=== PATIENT | male | born 1965 | race Caucasian/White ===

== ENCOUNTER 2019-08-12 10:05 | Inpatient (IN) | payer BC ==
--- NOTE | 2019-08-12 10:19 | ED ---
General Adult HPI <Tee Cerrato - Last Filed: 08/12/19 12:25> - General Source: patient, RN notes reviewed Mode of arrival: ambulatory Limitations: no limitations <Costa Bautista - Last Filed: 08/12/19 12:34> - General Chief complaint: Abdominal Pain Stated complaint: ABDOMINAL PAIN Time Seen by Provider: 08/12/19 10:16 - History of Present Illness Initial comments: 54-year-old male with a past medical history of chronic lower back pain and inguinal hernia repair 30 years ago presents to the emergency department for abdominal pain. Patient states it is mostly in his upper abdomen. States it flowers s been constant for about 2 days. Describes the pain as a sharp swirling pain. States he has been nauseous and vomiting as well. Denies any hematemesis. States he has been having normal bowel movements up until today when he has not had a bowel movement. Patient denies any fevers or chills. Denies any other abdominal surgeries or pathologies. Patient denies any alleviating or aggravating factors.Patient has no other complaints at this time including shortness of breath, chest pain, headache, or visual changes. (Costa Bautista) - Related Data Home Medications Medication Instructions Recorded Confirmed Ibuprofen [Motrin] 800 mg PO Q8HR PRN 12/18/15 08/12/19 Omeprazole 20 mg PO TID 08/12/19 08/12/19 Allergies Allergy/AdvReac Type Severity Reaction Status Date / Time No Known Allergies Allergy Verified 08/12/19 10:16 Review of Systems ROS Other: All systems not noted in ROS Statement are negative. <Tee Cerrato - Last Filed: 08/12/19 12:25> ROS Other: All systems not noted in ROS Statement are negative. <Costa Bautista - Last Filed: 08/12/19 12:34> ROS Statement: Those systems with pertinent positive or pertinent negative responses have been documented in the HPI. Past Medical History Additional Past Medical History / Comment(s): CHRONIC LOWER BACK PAIN. History of Any Multi-Drug Resistant Organisms: None Reported Past Surgical History: Hernia Repair Past Anesthesia/Blood Transfusion Reactions: No Reported Reaction Past Psychological History: No Psychological Hx Reported Smoking Status: Current every day smoker Past Alcohol Use History: Occasional Past Drug Use History: None Reported - Past Family History Mother Family Medical History: No Reported History <Costa Bautista Valerie - Last Filed: 08/12/19 12:34> General Exam Limitations: no limitations General appearance: alert, in no apparent distress Head exam: Present: atraumatic, normocephalic, normal inspection Eye exam: Present: normal appearance, PERRL, EOMI. Absent: scleral icterus, conjunctival injection, periorbital swelling ENT exam: Present: normal exam, mucous membranes moist Neck exam: Present: normal inspection, full ROM. Absent: tenderness, meningismus, lymphadenopathy Respiratory exam: Present: normal lung sounds bilaterally. Absent: respiratory distress, wheezes, rales, rhonchi, stridor Cardiovascular Exam: Present: regular rate, normal rhythm, normal heart sounds. Absent: systolic murmur, diastolic murmur, rubs, gallop, clicks GI/Abdominal exam: Present: soft, distended, tenderness (tenderness in right and left upper quadrants with guarding as well as epigastric area), diminished bowel sounds. Absent: guarding, rebound, rigid Neurological exam: Present: alert <Lily,Costa Padilla - Last Filed: 08/12/19 12:34> Course <Tee Cerrato - Last Filed: 08/12/19 12:25> Vital Signs 08/12/19 10:08 Temperature 97.4 F L Pulse Rate 67 Respiratory 18 Rate Blood Pressure 173/101 O2 Sat by Pulse 97 Oximetry - Reevaluation(s) Reevaluation #1: 08/12/19 12:25 Case discussed with practitioner Costa. Case also discussed with Dr. Torres, who will admit covering for Dr. Thornton. Consult will be placed with GI and oncology. (Tee Cerrato) EKG Findings - EKG Comments: EKG Findings:: Sinus rhythm, ventricular rate 70, OR interval 176, QTC 414 <Mitch Bautistanely Padilla - Last Filed: 08/12/19 12:34> Medical Decision Making - Lab Data Result diagrams: 08/12/19 11:00 08/12/19 11:00 <Tee Cerrato - Last Filed: 08/12/19 12:25> - Lab Data Result diagrams: 08/12/19 11:00 08/12/19 11:00 <Costa Bautista - Last Filed: 08/12/19 12:34> - Medical Decision Making 54-year-old male to past medical history of chronic lower back pain and inguinal hernia repair 30 years ago presents for abdominal pain. It is mostly in his upper abdomen but does radiate to the lower abdomen. Describes the pain as a sharp swirling pain across his upper abdomen. Does admit to nausea vomiting. Denies diarrhea. States he has been passing stool up until this morning. Vitals are stable. Patient is hypertensive likely secondary to pain. On exam patient does have generalized upper abdominal tenderness. CBC CMP unremarkable. Lipase is 8105 with amylase of 1121. Initially discussed the patient will use and he states he is not a daily drinker and last drank last Tuesday. However upon further questioning patient does admit that there are weeks for he drinks up to 3-[address] abdomen and pelvis was obtained which shows hepatomegaly of the liver and uncomplicated diverticulosis. Uncomplicated diverticulosis. There is thickening of the proximal transverse colon as well. CT shows multiple sclerotic foci within the skeletal. Recommend nuclear medicine scan. Dr. Cerrato spoke with Dr Merida who recommends GI and oncology consultation. Patient will also receive inpatient ultrasound of the gallbladder. (Costa Bautista) - Lab Data Lab Results 08/12/19 08/12/19 08/12/19 Range/Units 11:00 11:00 11:00 WBC 10.6 (3.8-10.6) k/uL RBC 5.76 (4.30-5.90) m/uL Hgb 18.8 H (13.0-17.5) gm/dL Hct 52.9 (39.0-53.0) % MCV 91.9 (80.0-100.0) fL MCH 32.7 (25.0-35.0) pg MCHC 35.5 (31.0-37.0) g/dL RDW 13.0 (11.5-15.5) % Plt Count 204 (150-450) k/uL Neutrophils % 90 % Lymphocytes % 8 % Monocytes % 2 % Eosinophils % 0 % Basophils % 0 % Neutrophils # 9.5 H (1.3-7.7) k/uL Lymphocytes # 0.8 L (1.0-4.8) k/uL Monocytes # 0.2 (0-1.0) k/uL Eosinophils # 0.0 (0-0.7) k/uL Basophils # 0.0 (0-0.2) k/uL Sodium 139 (137-145) mmol/L Potassium 4.6 (3.5-5.1) mmol/L Chloride 103 (98-107) mmol/L Carbon Dioxide 29 (22-30) mmol/L Anion Gap 7 mmol/L BUN 14 (9-20) mg/dL Creatinine 0.88 (0.66-1.25) mg/dL Est GFR (CKD-EPI)AfAm >90 (>60 ml/min/1.73 sqM) Est GFR (CKD-EPI)NonAf >90 (>60 ml/min/1.73 sqM) Glucose 197 H (74-99) mg/dL Plasma Lactic Acid Juanpablo 1.4 (0.7-2.0) mmol/L Calcium 9.9 (8.4-10.2) mg/dL Total Bilirubin 0.7 (0.2-1.3) mg/dL AST 57 (17-59) U/L ALT 112 H (21-72) U/L Alkaline Phosphatase 82 (38-126) U/L Troponin I (0.000-0.034) ng/mL Total Protein 7.6 (6.3-8.2) g/dL Albumin 4.8 (3.5-5.0) g/dL Amylase 1121 H* (30-110) U/L Lipase 8105 H (23-300) U/L 08/12/19 Range/Units 11:00 WBC (3.8-10.6) k/uL RBC (4.30-5.90) m/uL Hgb (13.0-17.5) gm/dL Hct (39.0-53.0) % MCV (80.0-100.0) fL MCH (25.0-35.0) pg MCHC (31.0-37.0) g/dL RDW (11.5-15.5) % Plt Count (150-450) k/uL Neutrophils % % Lymphocytes % % Monocytes % % Eosinophils % % Basophils % % Neutrophils # (1.3-7.7) k/uL Lymphocytes # (1.0-4.8) k/uL Monocytes # (0-1.0) k/uL Eosinophils # (0-0.7) k/uL Basophils # (0-0.2) k/uL Sodium (137-145) mmol/L Potassium (3.5-5.1) mmol/L Chloride (98-107) mmol/L Carbon Dioxide (22-30) mmol/L Anion Gap mmol/L BUN (9-20) mg/dL Creatinine (0.66-1.25) mg/dL Est GFR (CKD-EPI)AfAm (>60 ml/min/1.73 sqM) Est GFR (CKD-EPI)NonAf (>60 ml/min/1.73 sqM) Glucose (74-99) mg/dL Plasma Lactic Acid Juanpablo (0.7-2.0) mmol/L Calcium (8.4-10.2) mg/dL Total Bilirubin (0.2-1.3) mg/dL AST (17-59) U/L ALT (21-72) U/L Alkaline Phosphatase (38-126) U/L Troponin I <0.012 (0.000-0.034) ng/mL Total Protein (6.3-8.2) g/dL Albumin (3.5-5.0) g/dL Amylase (30-110) U/L Lipase (23-300) U/L Disposition <Tee Cerrato - Last Filed: 08/12/19 12:25> Is patient prescribed a controlled substance at d/c from ED?: No Time of Disposition: 12:34 <Costa Bautista - Last Filed: 08/12/19 12:34> Clinical Impression: Pancreatitis, Fatty liver, Bone lesion Disposition: ADMITTED IP TO THIS HOSP Referrals: Alyce Davey MD [Primary Care Provider] - 1-2 days
[2019-08-12] MEDS ORDERED: MORPHINE SULFATE 2 MG/ML SYRINGE IVP STA (10:25)
[2019-08-12] MEDS ORDERED: SODIUM CHLORIDE 0.9% 500 ML 500 ML IV STA (10:25)
[2019-08-12] MEDS ORDERED: ONDANSETRON 4 MG/2 ML VIAL IVP STA (10:25)
[2019-08-12] MEDS ORDERED: FAMOTIDINE 20 MG/2 ML VIAL IV STA (10:26)
[2019-08-12 11:18] LABS: ALT 112 U/L (21-72); AST 57 U/L (17-59); African American GFR (CKD) >90 (>60 ml/min/1.73 sqM); Albumin 4.8 g/dL (3.5-5.0); Alkaline Phosphatase 82 U/L (38-126); Anion Gap 7 mmol/L; Blood Urea Nitrogen 14 mg/dL (9-20); Calcium 9.9 mg/dL (8.4-10.2); Carbon Dioxide 29 mmol/L (22-30); Chloride 103 mmol/L (98-107); Glucose 197 mg/dL (74-99); Potassium 4.6 mmol/L (3.5-5.1); Sodium 139 mmol/L (137-145); Total Bilirubin 0.7 mg/dL (0.2-1.3); Total Protein 7.6 g/dL (6.3-8.2)
[2019-08-12 11:43] LABS: Amylase 1121 U/L (30-110)
--- NOTE | 2019-08-12 12:03 | CT ---
EXAMINATION TYPE: CT abdomen pelvis w con DATE OF EXAM: 08/12/2019 REFERENCE: NONE HISTORY: abdominal pain HISTORY: Upper Abdominal pain with nausea CT DLP: 2259.9 mGy Automated exposure control for dose reduction was used. TECHNIQUE: Helical acquisition through the abdomen and pelvis was obtained following the oral ingesti on of without Oral Contrast and following intravenous administration of 100 mL of Isovue 300. The rossi a was reformatted in axial, coronal and sagittal projections. FINDINGS: Visualized portions of the lungs are clear.There is no pleural or pericardial fluid. Heart size upper limits of normal. Within the abdomen, the liver is prominent measuring 19 cm. It is low in attenuation and may be fatty infiltrated. The spleen and gallbladder are unremarkable. Both adrenal glands are normal. Both kidneys demonstrate function and appear morphologically normal. The pancreas is unremarkable. There is no significant retroperitoneal, iliac or inguinal adenopathy. The bladder is not distended. There are scattered diverticula throughout the left side of the colon. There is some thickening of th e distal transverse colon. The appendix is normal Small bowel caliber is normal. There is no free fluid and no free air. There are small sclerotic foci in both femoral heads as well as in the left acetabulum. There is hype rtrophic spondylosis in the lower dorsal spine. IMPRESSION: 1. HEPATOMEGALY AND FATTY INFILTRATION OF THE LIVER. 2. UNCOMPLICATED DIVERTICULOSIS OF THE LEFT SIDE OF THE COLON. 3. THICKENING OF THE WALL OF THE PROXIMAL TRANSVERSE COLON. PLEASE CORRELATE FOR COLITIS. 4. MULTIPLE SCLEROTIC FOCI DESCRIBED WITHIN THE SKELETAL. A NUCLEAR MEDICINE WHOLE BODY BONE SCAN WOULD BE SUGGESTED TO EXCLUDE METASTASES.
[2019-08-12 12:04] LABS: Basophils % (A) 0 %; Eosinophils % (A) 0 %; HCT 52.9 % (39.0-53.0); HGB 18.8 gm/dL (13.0-17.5); Lymphocytes # (A) 0.8 k/uL (1.0-4.8); Lymphocytes % (A) 8 %; MCH 32.7 pg (25.0-35.0); MCHC 35.5 g/dL (31.0-37.0); MCV 91.9 fL (80.0-100.0); Mean Platelet Volume 6.6; Monocytes # (A) 0.2 k/uL (0-1.0); Monocytes % (A) 2 %; Neutrophils # (A) 9.5 k/uL (1.3-7.7); Neutrophils % (A) 90 %; Platelet Count 204 k/uL (150-450); RBC 5.76 m/uL (4.30-5.90); WBC 10.6 k/uL (3.8-10.6)
[2019-08-12] MEDS ORDERED: NALOXONE 0.4 MG/ML 1 ML VIAL IV PRN (12:34)
[2019-08-12] MEDS ORDERED: KETOROLAC 30 MG/ML 1 ML VIAL IVP PRN (12:34)
[2019-08-12] MEDS ORDERED: hydrALAZINE HCL 20 MG/ML 1 ML VIAL IVP PRN (13:09)
--- NOTE | 2019-08-12 13:12 | P.HPIM ---
History of Present Illness This is a pleasant 54 years old male with no significant past medical history except for chronic low back pain. He presents because of abdominal pain. Patient says that abdominal pain started 2 days ago, and upper abdomen that rad iates across both sides but not to the back, it was mild getting more severe today more than 8/10 in severity felt like dull agonizing pain, associated about 4 episodes of vomiting, no hematemesis. He had no bowel movement today however yesterday he had regular bowel movement. No chest pain or dyspnea. No fever.No urinary symptoms Patient smokes about 1 pack per day, drinks alcohol occasionally and no illicit drugs Vitas looks stable, blood pressure 173/101. Labs including CBC, BMP are unre markable. ALT slightly elevated at 112, AST and bilirubin are within normal limits. Troponin is negative. Lipase is elevated at more than 8000. EKG showing sinus rhythm at [address]-T changes. CT of the abdomen and pelvis with IV contrast: Hepatomegaly, diverticulosis, thickened proximal transverse colon suspicious for colitis, multiple sclerotic foci within the skeletal including femoral heads and left acetabulum Review of Systems CONSTITUTIONAL: No fever, no malaise, no fatigue. HEENT: No recent visual problems or hearing problems. Denied any sore throat. CARDIOVASCULAR: No orthopnea, PND, no palpitations, no syncope. PULMONARY: No shortness of breath, no cough, no hemoptysis. GASTROINTESTINAL: No diarrhea, no nausea, no vomiting, no abdominal pain. Normoactive bowel sounds. NEUROLOGICAL: No headaches, no weakness, no numbness. HEMATOLOGICAL: Denies any bleeding or petechiae. GENITOURINARY: Denies any burning micturition, frequency, or urgency. MUSCULOSKELETAL/RHEUMATOLOGICAL: Denies any joint pain, swelling, or any muscle pain. ENDOCRINE: Denies any polyuria or polydipsia. Past Medical History Additional Past Medical History / Comment(s): CHRONIC LOWER BACK PAIN. History of Any Multi-Drug Resistant Organisms: None Reported Past Surgical History: Hernia Repair Past Anesthesia/Blood Transfusion Reactions: No Reported Reaction Past Psychological History: No Psychological Hx Reported Smoking Status: Current every day smoker Past Alcohol Use History: Occasional Past Drug Use History: None Reported - Past Family History Mother Family Medical History: No Reported History Medications and Allergies Home Medications Medication Instructions Recorded Confirmed Type Ibuprofen [Motrin] 800 mg PO Q8HR PRN 12/18/15 08/12/19 History Omeprazole 20 mg PO TID 08/12/19 08/12/19 History Allergies Allergy/AdvReac Type Severity Reaction Status Date / Time No Known Allergies Allergy Verified 08/12/19 10:16 Physical Exam Vitals: Vital Signs Temp Pulse Resp BP Pulse Ox 08/12/19 10:08 97.4 F L 67 18 173/101 97 Intake and Output 08/11/19 08/12/19 08/12/19 22:59 06:59 14:59 Other: Weight 122.47 kg GENERAL: The patient is alert and oriented x3, not in any acute distress. Obese HEENT: Pupils are round and equally reacting to light. EOMI. No scleral icterus. No conjunctival pallor. Normocephalic, atraumatic. No pharyngeal erythema. No thyromegaly. CARDIOVASCULAR: S1 and S2 present. No murmurs, rubs, or gallops. PULMONARY: Chest is clear to auscultation, no wheezing or crackles. -ABDOMEN: Soft, epigastric tenderness with no rebound tenderness or guarding, nondistended, normoactive bowel sounds. No palpable organomegaly. MUSCULOSKELETAL: No joint swelling or deformity. EXTREMITIES: No cyanosis, clubbing, or pedal edema. NEUROLOGICAL: Gross neurological examination did not reveal any focal deficits. SKIN: No rashes. No petechiae Results CBC & Chem 7: 08/12/19 11:00 08/12/19 11:00 Labs: Abnormal Lab Results - Last 24 Hours (Table) 08/12/19 08/12/19 Range/Units 11:00 11:00 Hgb 18.8 H (13.0-17.5) gm/dL Neutrophils # 9.5 H (1.3-7.7) k/uL Lymphocytes # 0.8 L (1.0-4.8) k/uL Glucose 197 H (74-99) mg/dL ALT 112 H (21-72) U/L Amylase 1121 H* (30-110) U/L Lipase 8105 H (23-300) U/L Assessment and Plan Assessment: Acute pancreatitis Possible metastasis to the bone. CT of the abdomen and pelvis: multiple sclerotic foci within the skeletal including femoral heads and left acetabulum Hepatomegaly Thickened proximal transverse colon suspicious for colitis High blood pressure Chronic back pain Plan: This is a pleasant 54 years old male who presents with pancreatitis and skeletal psychotic foci suspicious for metastasis. Continue with pain management, nothing by mouth, IV hydration. Consult GI. Consult oncology for skeletal lesions Labs and medication were reviewed.. Continue same treatment. Continue with symptomatic treatment. Resume home medication. Monitor lytes and vitals. DVT and GI prophylaxis. Further recommendations of the clinical course of the patient DVT prophylaxis: Subcutaneous heparin GI Prophylaxis: Pepcid PT/OT: Pending Prognosis is guarded
--- NOTE | 2019-08-12 14:37 | US ---
EXAMINATION TYPE: US abdomen limited DATE OF EXAM: 08/12/2019 COMPARISON: CT CLINICAL HISTORY: RUQ, gall bladder. Epigastric pain x 3 days, vomiting; HT5'6", WT 270lbs EXAM MEASUREMENTS: Liver Length: 20.8 cm Gallbladder Wall: 0.2 cm CBD: 0.4 cm Right Kidney: 12.4 x 5.8 x 4.2 cm Pancreas: hyperechoic Liver: hyperechoic (fatty liver) to right renal cortex and noted throughout with small areas of focal fatty sparing near gallbladder; enlarged liver Gallbladder: wnl Evidence for sonographic Nguyen's sign: epigastric pain CBD: wnl Right Kidney: No hydronephrosis or masses seen The pancreas is poorly visualized. The liver is enlarged measuring 21 cm. The liver is mildly echogenic and heterogenous. There are area s of decreased attenuation near the gallbladder fossa which may represent areas of focal fatty sparin g. The gallbladder is unremarkable without evidence cholelithiasis. Gallbladder wall measures 2 mm. This common hepatic duct measures 4 mm. The right kidney is unremarkable. IMPRESSION: HEPATOMEGALY AND PROBABLE FATTY INFILTRATION OF THE LIVER.
[2019-08-12] MEDS: SODIUM CHLORIDE 0.9% 1,000 ML IV SCH (17:04)
[2019-08-12 17:30] VITALS: BMI 42.7
[2019-08-12] MEDS: HEPARIN SODIUM,PORCINE 5,000 UNIT/ML 1 ML VIAL SQ SCH ×2 (17:42→19:57)
[2019-08-12] MEDS: HYDROmorphone 0.5 MG/0.5 ML SYRINGE IVP PRN ×2 (17:43→21:48)
[2019-08-12] MEDS: ONDANSETRON 4 MG/2 ML VIAL IVP PRN (17:48)
[2019-08-12 17:53] LABS: Amorphous Sediment,Urine Rare /hpf; Appearance,Urine Clear (Clear); Bilirubin,Urine Negative (Negative); Blood,Urine Trace (Negative); Color,Urine Yellow; Glucose,Urine (UA) Trace (Negative); Ketones,Urine 2+ (Negative); Leukocyte Esterase,Urine Negative (Negative); Mucus,Urine Moderate /hpf; Nitrite,Urine Negative (Negative); Protein,Urine Trace (Negative); RBC,Urine 1 /hpf (0-5); Specific Gravity,Urine 1.045 (1.001-1.035); Squamous Epithelial Cell,Urine <1 /hpf (0-4); Urobilinogen,Urine <2.0 mg/dL (<2.0); WBC,Urine 2 /hpf (0-5)
[2019-08-12] MEDS: FAMOTIDINE 20 MG/2 ML VIAL IV SCH (19:58)
[2019-08-12] MEDS: NICOTINE 21MG/24HR PATCH TRANSDERM SCH (23:01)
[2019-08-13] MEDS: SODIUM CHLORIDE 0.9% 1,000 ML IV SCH ×4 (02:26→23:58)
[2019-08-13] MEDS: HYDROmorphone 0.5 MG/0.5 ML SYRINGE IVP PRN ×5 (02:26→18:40)
[2019-08-13] MEDS: ONDANSETRON 4 MG/2 ML VIAL IVP PRN (02:27)
[2019-08-13 07:18] LABS: ALT 76 U/L (21-72); AST 29 U/L (17-59); African American GFR (CKD) >90 (>60 ml/min/1.73 sqM); Albumin 4.3 g/dL (3.5-5.0); Alkaline Phosphatase 64 U/L (38-126); Anion Gap 12 mmol/L; Blood Urea Nitrogen 16 mg/dL (9-20); Calcium 9.4 mg/dL (8.4-10.2); Carbon Dioxide 25 mmol/L (22-30); Chloride 103 mmol/L (98-107); Glucose 129 mg/dL (74-99); Potassium 4.3 mmol/L (3.5-5.1); Sodium 140 mmol/L (137-145); Total Bilirubin 0.9 mg/dL (0.2-1.3)
[2019-08-13 07:19] LABS: Basophils # (A) 0.1 k/uL (0-0.2); Basophils % (A) 1 %; Eosinophils # (A) 0.1 k/uL (0-0.7); Eosinophils % (A) 1 %; HCT 53.3 % (39.0-53.0); HGB 18.2 gm/dL (13.0-17.5); Lymphocytes # (A) 1.4 k/uL (1.0-4.8); Lymphocytes % (A) 9 %; MCH 32.8 pg (25.0-35.0); MCHC 34.2 g/dL (31.0-37.0); MCV 95.9 fL (80.0-100.0); Mean Platelet Volume 7.7; Monocytes # (A) 0.8 k/uL (0-1.0); Monocytes % (A) 5 %; Neutrophils # (A) 12.7 k/uL (1.3-7.7); Neutrophils % (A) 84 %; Platelet Count 176 k/uL (150-450); RBC 5.56 m/uL (4.30-5.90); RDW 13.3 % (11.5-15.5); WBC 15.1 k/uL (3.8-10.6)
[2019-08-13] MEDS: FAMOTIDINE 20 MG/2 ML VIAL IV SCH ×2 (09:40→20:16)
[2019-08-13] MEDS: HEPARIN SODIUM,PORCINE 5,000 UNIT/ML 1 ML VIAL SQ SCH ×2 (09:44→20:16)
--- NOTE | 2019-08-13 12:12 | P.PN ---
Subjective This is a pleasant 54 years old male with no significant past medical history except for chronic low back pain. He presents because of abdominal pain. Patient says that abdominal pain started 2 days ago, and upper abdomen that radiates across both sides but not to the back, it was mild getting more severe today more than 8/10 in severity felt like dull agonizing pain, associated about 4 episodes of vomiting, no hematemesis. He had no bowel movement today however yesterday he had regular bowel movement. No chest pain or dyspnea. No fever.No urinary symptoms Patient smokes about 1 pack per day, drinks alcohol occasionally and no illicit drugs Vitas looks stable, blood pressure 173/101. Labs including CBC, BMP are unremarkable. ALT slightly elevated at 112, AST and bilirubin are within normal limits. Troponin is negative. Lipase is elevated at more than 8000. EKG showing sinus rhythm at [address]-T changes. CT of the abdomen and pelvis with IV contrast: Hepatomegaly, diverticulosis, thickened proximal transverse colon suspicious for colitis, multiple sclerotic foci within the skeletal including femoral heads and left acetabulum 08/13/2019 Patient is awake, is still nothing by mouth on normal saline and 1 20 L/h. Patient states that his epigastric abdominal pain and tenderness are better today at 4-6/10 in severity however the swelling he was taken Dilaudid. He did not have bowel movement or passing gases today, however patient does not look seems in distress. He is hemodynamically stable and his blood pressure this morning is 139/83 while he was on normal saline infusion, patient does not need IV hydralazine for his upper pressure. Patient today leukocytes went up to 15.1 K.. His AST is normal and ALT is trending down to 76. CAT scans showed skeletal foci in his femoral heads and acetabulum however patient has no bone tenderness Review of systems CONSTITUTIONAL: No fever, no malaise, no fatigue. HEENT: No recent visual problems or hearing problems. Denied any sore throat. CARDIOVASCULAR: No orthopnea, PND, no palpitations, no syncope. PULMONARY: No shortness of breath, no cough, no hemoptysis. GASTROINTESTINAL: No diarrhea, Normoactive bowel sounds. NEUROLOGICAL: No headaches, no weakness, no numbness. HEMATOLOGICAL: Denies any bleeding or petechiae. GENITOURINARY: Denies any burning micturition, frequency, or urgency. MUSCULOSKELETAL/RHEUMATOLOGICAL: Denies any joint pain, swelling, or any muscle pain. ENDOCRINE: Denies any polyuria or polydipsia. Active Medications Generic Name Dose Route Start Last Admin Trade Name Freq PRN Reason Stop Dose Admin Famotidine 20 mg 08/12/19 21:00 08/13/19 09:40 Pepcid IV 20 mg Q12HR KIRILL Administration Heparin Sodium (Porcine) 5,000 unit 08/12/19 13:10 08/13/19 09:44 Heparin SQ 5,000 unit Q12HR KIRILL Administration Hydralazine HCl 5 mg 08/12/19 13:09 Apresoline IVP Q6HR PRN Blood Pressure - High Hydromorphone HCl 0.5 mg 08/12/19 12:34 08/13/19 09:50 Dilaudid IVP 0.5 mg Q3HR PRN Administration Moderate Pain Sodium Chloride 1,000 mls @ 120 mls/hr 08/12/19 12:45 08/13/19 04:32 Saline 0.9% IV Not Given .Q8H20M [facility] Naloxone HCl 0.2 mg 08/12/19 12:34 Narcan IV Q2M PRN Opioid Reversal Nicotine 1 patch 08/12/19 13:15 08/12/19 23:01 Habitrol 21mg/24hr Patch TRANSDERM Not Given DAILY [facility] Ondansetron HCl 4 mg 08/12/19 12:34 08/13/19 02:27 Zofran IVP 4 mg Q8HR PRN Administration Nausea And Vomiting Objective - Vital Signs Vital signs: Vital Signs Temp 99.4 F 08/12/19 21:00 Pulse 94 08/12/19 21:00 Resp 16 08/12/19 23:17 BP 139/83 08/12/19 21:00 Pulse Ox 91 L 08/12/19 21:00 Intake & Output 08/12/19 08/13/19 08/13/19 18:59 06:59 18:59 Intake Total 800 Balance 800 Weight 122.47 kg Intake: Intake, IV Titration 800 Amount Sodium Chloride 0.9% 1, 800 000 ml @ 120 mls/hr IV . Q8H20M KIRILL Rx#:[id number] Oral 0 Other: Voiding Method Toilet # Voids 2 - Exam -GENERAL: The patient is alert and oriented x3, not in any acute distress. Obese HEENT: Pupils are round and equally reacting to light. EOMI. No scleral icterus. No conjunctival pallor. Normocephalic, atraumatic. No pharyngeal erythema. No thyromegaly. CARDIOVASCULAR: S1 and S2 present. No murmurs, rubs, or gallops. PULMONARY: Chest is clear to auscultation, no wheezing or crackles. -ABDOMEN: Soft, improving epigastric tenderness with no rebound tenderness, nondistended, normoactive bowel sounds. No palpable organomegaly. MUSCULOSKELETAL: No joint swelling or deformity. EXTREMITIES: No cyanosis, clubbing, or pedal edema. NEUROLOGICAL: Gross neurological examination did not reveal any focal deficits. SKIN: No rashes. no petechiae. - Labs CBC & Chem 7: 08/13/19 06:21 08/13/19 06:21 Labs: Abnormal Lab Results - Last 24 Hours (Table) 08/12/19 08/13/19 08/13/19 Range/Units 17:40 06:21 06:21 WBC 15.1 H (3.8-10.6) k/uL Hgb 18.2 H (13.0-17.5) gm/dL Hct 53.3 H (39.0-53.0) % Neutrophils # 12.7 H (1.3-7.7) k/uL Glucose 129 H (74-99) mg/dL ALT 76 H (21-72) U/L Lipase 651 H (23-300) U/L Ur Specific Foley 1.045 H (1.001-1.035) Urine Protein Trace H (Negative) Urine Glucose (UA) Trace H (Negative) Urine Ketones 2+ H (Negative) Urine Blood Trace H (Negative) Amorphous Sediment Rare H (None) /hpf Urine Mucus Moderate H (None) /hpf Assessment and Plan Assessment: Acute pancreatitis Possible metastasis to the bone. CT of the abdomen and pelvis: multiple sclerotic foci within the skeletal including femoral heads and left acetabulum Hepatomegaly Thickened proximal transverse colon suspicious for colitis High blood pressure, improved Chronic back pain Plan: This is a pleasant 54 years old male who presents with pancreatitis and skeletal skletal foci suspicious for metastasis. Continue with pain management, nothing by mouth, IV hydration. Consult GI. Consult oncology for skeletal lesions. Start on Zosyn Labs and medication were reviewed.. Continue same treatment. Continue with symptomatic treatment. Resume home medication. Monitor lytes and vitals. DVT and GI prophylaxis. Further recommendations of the clinical course of the patient DVT prophylaxis: Subcutaneous heparin GI Prophylaxis: Pepcid Prognosis is guarded
[2019-08-13] MEDS: NICOTINE 21MG/24HR PATCH TRANSDERM SCH (12:24)
--- NOTE | 2019-08-13 15:14 | XR ---
EXAMINATION TYPE: XR chest 2V DATE OF EXAM: 08/13/2019 COMPARISON: NONE TECHNIQUE: PA and lateral views submitted. HISTORY: Shortness of breath FINDINGS: There is bilateral lower lobe subsegmental consolidation. Heart is mildly prominent. Mild prominence of the interstitium with no pneumothorax. Osseous structures intact. Hypertrophic and degenerative ch albert of the spine. IMPRESSION: 1. Bilateral lower lobe infiltrate. Central interstitium could represent bronchitis or interstitial p neumonitis. Correlate clinically to exclude venous congestion.
--- NOTE | 2019-08-13 15:25 | XR ---
EXAMINATION TYPE: XR Hip Bilateral and AP pelvis DATE OF EXAM: 08/13/2019 COMPARISON: NONE HISTORY: Pain TECHNIQUE: A single AP view of the pelvis is obtained. Two views of the bilateral hip are obtained. FINDINGS: There is no acute fracture/dislocation evident in the pelvis. The hip and sacroiliac join ts appear symmetric and unremarkable. The overlying soft tissue appears unremarkable. Two views of bilateral hip show no acute fracture or dislocation. Small less than 1 cm focal areas of sclerosis involving the femoral head and bilaterally in relation to the left acetabulum are too smal l to characterize but likely related to bone islands. Calcifications in the pelvis are likely vascula r. Hypertrophic spurring along the iliac crest noted. The overlying soft tissue is unremarkable. IMPRESSION: 1. The tiny areas of sclerotic lesions involving the femoral head most likely are benign in the absen ce of a history of malignancy. As noted within the CT scan report a bone scan could be obtained to de termine the activity of these lesions.
--- NOTE | 2019-08-13 16:04 | P.CONS ---
History of Present Illness - Reason for Consult Consult date: 08/13/19 Sclerotic foci seen on CT Requesting physician: Yanick E Sheet - Chief Complaint Abdominal Pain - History of Present Illness Mr. Kim is a pleasant gentleman with no significant medical history, with the exception of Chronic Lower back pain and arthritis. He presented with abdominal pain and was found to have elevate amylase and lipase, treating for pancreatitis. His CBC reveals an elevated Hemoglobin 18.2/hematocrit 52. He is an everyday smoker, obese, and does snore at night. Occasional social alcohol use. On CT imaging abdomen and pelvis bilateral femoral head sclerotic lesions and left traocanter lesions were mentioned therefor hematology/oncology was consulted. He does have pruitic skin especially out of shower, occassional headaches, joint pain. He states he drinks at least 1.5-2Liters of water daily. He also admits that his mother has always been advising him to donate blood secondary to his family history of "iron rich blood". Review of Systems A 14 point review of systems was assessed and completed and are all negative except for HPI Past Medical History Past Medical History: GERD/Reflux Additional Past Medical History / Comment(s): CHRONIC LOWER BACK PAIN. 39 year smoker History of Any Multi-Drug Resistant Organisms: None Reported Past Surgical History: Hernia Repair Past Anesthesia/Blood Transfusion Reactions: No Reported Reaction Past Psychological History: No Psychological Hx Reported Smoking Status: Current every day smoker Past Alcohol Use History: Occasional Additional Past Alcohol Use History / Comment(s): SMOKED 39 YEARS, 1 PPD Past Drug Use History: None Reported - Past Family History Mother Family Medical History: No Reported History Father Family Medical History: Hypertension Medications and Allergies Home Medications Medication Instructions Recorded Confirmed Type Ibuprofen [Motrin] 800 mg PO Q8HR PRN 12/18/15 08/12/19 History Omeprazole 20 mg PO TID 08/12/19 08/12/19 History Allergies Allergy/AdvReac Type Severity Reaction Status Date / Time No Known Allergies Allergy Verified 08/12/19 10:16 Physical Exam Vitals: Vital Signs Temp Pulse Resp BP Pulse Ox 08/13/19 12:37 97.5 F L 76 20 140/84 94 L 08/13/19 09:15 18 08/12/19 23:17 16 08/12/19 21:00 99.4 F 94 16 139/83 91 L 08/12/19 17:30 17 08/12/19 17:24 99.4 F 93 20 157/84 96 Intake and Output 08/12/19 08/13/19 08/13/19 22:59 06:59 14:59 Intake Total 0 800 Balance 0 800 Intake: Intake, IV Titration 800 Amount Sodium Chloride 0.9% 1, 800 000 ml @ 120 mls/hr IV . Q8H20M [facility] Rx#:[id number] Oral 0 0 Other: Voiding Method Toilet Toilet # Voids 2 General: Alert and Oriented x3, No Acute Distress Head: Normocytic, Atraumatic Neck: Supple Mouth: No Lesions, No Thrush Eyes: Non-sclerotic No Palpable cervical, supraclavicular, axillary adenopathy Heart: Regular Rate, Regular Rhythm Lungs: Clear to Ausculations, No Wheeze, No Rhonchi, Diminishe bilateral lower lobes, No increased respiratory effort noted Abdomen: Soft, Non-Distended, Non-Tended, BSx4 Extremities: No Edema, Equal Strength Neurological: No Focal Defects: No sensory or motor deficits noted Psych: Calm and cooperative Results CBC & Chem 7: 08/13/19 06:21 08/13/19 06:21 Labs: Abnormal Lab Results - Last 24 Hours (Table) 08/12/19 08/13/19 08/13/19 Range/Units 17:40 06:21 06:21 WBC 15.1 H (3.8-10.6) k/uL Hgb 18.2 H (13.0-17.5) gm/dL Hct 53.3 H (39.0-53.0) % Neutrophils # 12.7 H (1.3-7.7) k/uL Glucose 129 H (74-99) mg/dL ALT 76 H (21-72) U/L Lipase 651 H (23-300) U/L Ur Specific [place] 1.045 H (1.001-1.035) Urine Protein Trace H (Negative) Urine Glucose (UA) Trace H (Negative) Urine Ketones 2+ H (Negative) Urine Blood Trace H (Negative) Amorphous Sediment Rare H (None) /hpf Urine Mucus Moderate H (None) /hpf Assessment and Plan Plan: Assessment and Recommendations: Increased Hemoglobin/Hematocrit: - Likely secondary to everyday tobacco abuse although he states his family has a known "iron rich" blood and many of them require frequent blood donations. - Check Erythropoeitin and Iron Studies - Will await the above tests and continue work-up as appropriate - Did discuss with GI Sclerotic Bone Lesions on bilateral femoral heads and left Acetabulum: - Will further investigate with standard imaging Xrays, then if needed follow- up with Bone Scan - If an underlying Hematchromatosis deposits in bone and increased risks of osteopenia can result - Await standard imaging results. Pancreatitis: - Per primary Team Smoking Cessation. MICHAEL Sharpe
[2019-08-13] MEDS: PIPERACILLIN-TAZOBACTAM 3.375 GM in SODIUM CHLORIDE 0.9% 100 ML IVPB SCH ×2 (16:47→23:57)
--- NOTE | 2019-08-13 18:57 | CONS ---
CONSULTATION DATE OF DICTATION: 08/13/2019 REASON FOR CONSULTATION: Acute pancreatitis. HISTORY OF PRESENT ILLNESS: The patient is a 54-year-old pleasant white male who was admitted to the hospital with acute onset of severe epigastric pain associated with nausea, vomiting for the last 3 days' duration. The pain was mostly in the epigastric area radiating to the back. He has history of alcohol abuse. He usually drinks between 5 and 10 beers on a daily basis. He has been drinking for almost 30 years. Earlier on in his early 20s he was drinking up to 15 to 20 beers a day for about 5 years or so. Following admission to the hospital he had a CT of the abdomen and pelvis done which revealed hepatomegaly with fatty infiltration of the liver, uncomplicated diverticulosis, thickening of the proximal transverse colon, and multiple sclerotic foci in the skeletal area, and possibility of metastasis was supposed to be excluded. The pancreas appeared normal. The patient is feeling better today; still has epigastric pain; very nauseated. PAST MEDICAL HISTORY: Past medical history is significant for: 1. Obesity. 2. Hypertension. 3. Gastroesophageal reflux disease. 4. Severe chronic back pain. PAST SURGICAL HISTORY: Hernia repair. SOCIAL HISTORY: Alcohol use as mentioned above. Chronic smoker. FAMILY HISTORY: Mother has high iron in her blood, but unclear whether there is evidence of history of hereditary hemochromatosis. MEDICATIONS: Medications at home are Motrin and omeprazole. ALLERGIES: NONE. REVIEW OF SYSTEMS: CARDIOPULMONARY: No chest pain or shortness of breath. GENITOURINARY: No dysuria or hematuria. MUSCULOSKELETAL: Chronic back pain. SKIN: Unremarkable. ENDOCRINE: Unremarkable. PSYCHIATRIC: Unremarkable. NEUROLOGY: Unremarkable. ENT/VISION: Unremarkable. CONSTITUTIONAL: No recent weight loss. No fever, chills, night sweats. PHYSICAL EXAMINATION: VITAL SIGNS: Blood pressure 140/84, pulse rate 76, temperature 97.5. HEENT examination unremarkable. Conjunctivae pink. Sclerae anicteric. Oral cavity no lesions. NECK: No JVD or lymph node enlargement. CHEST: Clear to auscultation. HEART: Regular rate and rhythm. ABDOMEN: Soft. Mild tenderness in the epigastric area. Bowel sounds are positive. No organomegaly. EXTREMITIES: No pedal edema. SKIN: No rashes. NEUROLOGIC: Alert and oriented x3. No focal deficits. LABS: WBC yesterday was 10.6, hemoglobin 18.8, platelets normal. Today WBC 15.1, hemoglobin 18.2. Amylase 1121, lipase 8105. ALT and AST 57 and 112, respectively. Alkaline phosphatase and T-bilirubin are within normal limits. IMPRESSION: 1. This is a patient who presented with severe epigastric pain associated with nausea and vomiting for the last 2 days' duration and noted to have elevated amylase and lipase consistent with acute pancreatitis, most likely related to alcohol use. Patient has history of moderate drinking for almost [address] scan showed normal-appearing pancreas but fatty liver disease. 2. Mild elevation of serum transaminases which are gradually improving, probably explaining the basis of chronic alcoholic liver disease. 3. Questionable history of iron overload. Per family history, the patient has no family history of hemochromatosis that he knows about. RECOMMENDATIONS: 1. Keep him n.p.o. 2. Symptomatic and supportive care with pain medications and aggressive IV hydration. 3. Repeat labs in the morning. 4. I had a lengthy discussion with the patient regarding abstinence from alcohol to prevent future episodes of acute pancreatitis. 5. Will obtain iron and ferritin levels because of family history of iron overload/questionable hemochromatosis. 6. Will follow him closely during his hospital stay. Thank you for this consultation. MMODL / IJN: [id number] /
[2019-08-13 19:23] LABS: Iron Saturation 9.37 (15.00-50.00)
[2019-08-13 21:25] LABS: Ferritin 738.3 ng/mL (22.0-322.0)
[2019-08-14] MEDS: HYDROmorphone 0.5 MG/0.5 ML SYRINGE IVP PRN ×6 (00:16→19:40)
[2019-08-14] MEDS: SODIUM CHLORIDE 0.9% 1,000 ML IV SCH ×2 (04:30→13:01)
[2019-08-14 07:34] LABS: ALT 55 U/L (21-72); AST 23 U/L (17-59); African American GFR (CKD) >90 (>60 ml/min/1.73 sqM); Albumin 3.8 g/dL (3.5-5.0); Alkaline Phosphatase 62 U/L (38-126); Anion Gap 10 mmol/L; Blood Urea Nitrogen 16 mg/dL (9-20); Calcium 9.2 mg/dL (8.4-10.2); Carbon Dioxide 24 mmol/L (22-30); Chloride 104 mmol/L (98-107); Glucose 90 mg/dL (74-99); Sodium 138 mmol/L (137-145); Total Bilirubin 1.2 mg/dL (0.2-1.3); Total Protein 6.4 g/dL (6.3-8.2)
[2019-08-14 07:37] LABS: Basophils # (A) 0.1 k/uL (0-0.2); Basophils % (A) 1 %; Eosinophils # (A) 0.3 k/uL (0-0.7); Eosinophils % (A) 2 %; HCT 47.4 % (39.0-53.0); HGB 16.5 gm/dL (13.0-17.5); Lymphocytes # (A) 1.6 k/uL (1.0-4.8); Lymphocytes % (A) 12 %; MCH 32.3 pg (25.0-35.0); MCHC 34.9 g/dL (31.0-37.0); MCV 92.7 fL (80.0-100.0); Mean Platelet Volume 6.6; Monocytes % (A) 8 %; Neutrophils # (A) 10.5 k/uL (1.3-7.7); Neutrophils % (A) 77 %; Platelet Count 184 k/uL (150-450); RBC 5.12 m/uL (4.30-5.90); RDW 13.1 % (11.5-15.5); WBC 13.6 k/uL (3.8-10.6)
[2019-08-14] MEDS: PIPERACILLIN-TAZOBACTAM 3.375 GM in SODIUM CHLORIDE 0.9% 100 ML IVPB SCH ×3 (08:30→23:24)
[2019-08-14] MEDS: FAMOTIDINE 20 MG/2 ML VIAL IV SCH ×2 (08:31→20:37)
[2019-08-14] MEDS: HEPARIN SODIUM,PORCINE 5,000 UNIT/ML 1 ML VIAL SQ SCH ×2 (08:31→20:36)
[2019-08-14] MEDS: NICOTINE 21MG/24HR PATCH TRANSDERM SCH (08:42)
[2019-08-14] MEDS ORDERED: HYDROcodone/APAP 7.5-325MG 1 EACH TAB PO PRN (13:25)
--- NOTE | 2019-08-14 16:09 | P.PN ---
Subjective Progress Note Date: 08/14/19 Principal diagnosis: Pancreatitis Reviewed xrays today, bone scan ordered. Objective - Vital Signs Vital signs: Vital Signs Temp 98.5 F 08/14/19 12:25 Pulse 82 08/14/19 12:25 Resp 18 08/14/19 15:56 BP 131/83 08/14/19 12:25 Pulse Ox 95 08/14/19 12:25 Intake & Output 08/13/19 08/14/19 08/14/19 18:59 06:59 18:59 Intake Total 1160 1300 1350 Balance 1160 1300 1350 Intake: Intake, IV Titration 1060 1300 1300 Amount Piperacillin-Tazobactam 3 100 100 100 .375 gm In Sodium Chloride 0.9% 100 ml @ 25 mls/hr IVPB Q8HR [facility] Rx# :[id number] Sodium Chloride 0.9% 1, 960 1200 1200 000 ml @ 120 mls/hr IV . Q8H20M [facility] Rx#:[id number] Oral 100 0 50 Other: Voiding Method Toilet Toilet Toilet # Voids 2 2 3 - Exam General: Alert and Oriented x3, No Acute Distress Head: Normocytic, Atraumatic Neck: Supple Mouth: No Lesions, No Thrush Eyes: Non-sclerotic No Palpable cervical, supraclavicular, axillary adenopathy Heart: Regular Rate, Regular Rhythm Lungs: Clear to Ausculations, No Wheeze, No Rhonchi, Diminishe bilateral lower lobes, No increased respiratory effort noted Abdomen: Soft, Non-Distended, Non-Tended, BSx4 Extremities: No Edema, Equal Strength Neurological: No Focal Defects: No sensory or motor deficits noted Psych: Calm and cooperative - Labs CBC & Chem 7: 08/14/19 06:45 08/14/19 06:45 Labs: Abnormal Lab Results - Last 24 Hours (Table) 08/13/19 08/14/19 Range/Units 05:51 06:45 WBC 13.6 H (3.8-10.6) k/uL Neutrophils # 10.5 H (1.3-7.7) k/uL Iron 34 L (65-175) ug/dL Iron Saturation 9.37 L (15.00-50.00) Ferritin 738.3 H (22.0-322.0) ng/mL Assessment and Plan Plan: Assessment and Recommendations: Increased Hemoglobin/Hematocrit: - Likely secondary to everyday tobacco abuse although he states his family has a known "iron rich" blood and many of them require frequent blood donations. - Check Erythropoeitin and Iron Studies (although with pancreatitis may be inaccurate and follow-up outpatient to recheck) - Will await the above tests and continue work-up as appropriate - Did discuss with GI Sclerotic Bone Lesions on bilateral femoral heads and left Acetabulum: - Will further investigate with standard imaging Xrays, then if needed follow- up with Bone Scan - If an underlying Hematchromatosis deposits in bone and increased risks of osteopenia can result - Await standard imaging results. Pancreatitis: - Per primary Team Smoking Cessation. Plan: - Follow-up after discharge 4 weeks regarding increased hemoglobin after resolution of pancreatitis - Await bone scan MICHAEL Sharpe I have completed the full history and physical of this patient and developed the complete impression and plan, Agree with Valeri RODRIGUEZ, dictated as a sccribe
--- NOTE | 2019-08-14 16:19 | PN ---
PROGRESS NOTE DATE OF DICTATION: 08/14/2019 The patient is a 54-year-old pleasant white male with history of alcohol abuse, admitted to the hospital with acute pancreatitis, this being his first episode. He is doing much better today. He is still needing pain medications every 3 to 4 hours. Abdominal pain has improved. No nausea, vomiting. Feeling hungry. No fever, chills, night sweats. PHYSICAL EXAMINATION: He appears comfortable, in no apparent distress. VITAL SIGNS: Stable. Blood pressure 137/73, pulse rate 88, temperature 98.9. HEENT examination unremarkable. Conjunctivae pink. Sclerae anicteric. Oral cavity no lesions. NECK: No JVD or lymph node enlargement. CHEST: Clear to auscultation. HEART: Regular rate and rhythm. ABDOMEN: Soft. There was mild tenderness in the epigastric area. Bowel sounds are positive. No organomegaly. EXTREMITIES: No pedal edema. SKIN: No rashes. NEUROLOGIC: Alert and oriented x3. No focal deficits. LABS DONE TODAY: WBC 13.6, hemoglobin 15.5. Platelets are normal. Basic metabolic panel is within normal limits. Lipase is down to 99. IMPRESSION: Acute pancreatitis. This is the first episode. He has history of moderate alcohol use for 20 years' duration. Most likely we are dealing with alcohol-related pancreatitis. Symptoms are gradually improving. Lipase has normalized. RECOMMENDATIONS: 1. Start him on a clear liquid diet today. 2. Advance as tolerated tomorrow if he is doing well, and he can be discharged home tomorrow with outpatient followup in 2 weeks. Thank you for this consultation. MMODL / IJN: [id number] /
--- NOTE | 2019-08-14 17:17 | P.PN ---
Subjective This is a pleasant 54 years old male with no significant past medical history except for chronic low back pain. He presents because of abdominal pain. Patient says that abdominal pain started 2 days ago, and upper abdomen that radiates across both sides but not to the back, it was mild getting more severe today more than 8/10 in severity felt like dull agonizing pain, associated about 4 episodes of vomiting, no hematemesis. He had no bowel movement today however yesterday he had regular bowel movement. No chest pain or dyspnea. No fever.No urinary symptoms Patient smokes about 1 pack per day, drinks alcohol occasionally and no illicit drugs Vitas looks stable, blood pressure 173/101. Labs including CBC, BMP are unremarkable. ALT slightly elevated at 112, AST and bilirubin are within normal limits. Troponin is negative. Lipase is elevated at more than 8000. EKG showing sinus rhythm at [address]-T changes. CT of the abdomen and pelvis with IV contrast: Hepatomegaly, diverticulosis, thickened proximal transverse colon suspicious for colitis, multiple sclerotic foci within the skeletal including femoral heads and left acetabulum 08/13/2019 Patient is awake, is still nothing by mouth on normal saline and 1 20 L/h. Patient states that his epigastric abdominal pain and tenderness are better today at 4-6/10 in severity however the swelling he was taken Dilaudid. He did not have bowel movement or passing gases today, however patient does not look seems in distress. He is hemodynamically stable and his blood pressure this morning is 139/83 while he was on normal saline infusion, patient does not need IV hydralazine for his upper pressure. Patient today leukocytes went up to 15.1 K.. His AST is normal and ALT is trending down to 76. CAT scans showed skeletal foci in his femoral heads and acetabulum however patient has no bone tenderness 08/14/2019 Patient is seen at bedside, he says that his abdominal pain is keeping improving and now it is 2-3/10, with no nausea and vomiting, no diarrhea or bowel movement however he is passing gases. Vitals are stable. WBC is coming down to 16.6, chest x-ray is suspicious for bibasilar pneumonia. Patient denies dyspnea or coughing or chest pain. BMP is unremarkable. GI consult is appreciated. As per the recommendation mostly his neck. At this is related to his moderate use of alcohol for 20 years situation, although he does not drink everyday but he drinks alcohol frequently between 2 to 5 days per week. GI team are in the patient for discharge tomorrow with follow-up in 2 weeks. Hematology/oncology team recommended bone scan which is bending, and erythropoietin . Advance diet as tolerated Objective - Vital Signs Vital signs: Vital Signs Temp 98.5 F 08/14/19 12:25 Pulse 82 08/14/19 12:25 Resp 18 08/14/19 15:56 BP 131/83 08/14/19 12:25 Pulse Ox 95 08/14/19 12:25 Intake & Output 08/13/19 08/14/19 08/14/19 18:59 06:59 18:59 Intake Total 1160 1300 1350 Balance 1160 1300 1350 Intake: Intake, IV Titration 1060 1300 1300 Amount Piperacillin-Tazobactam 3 100 100 100 .375 gm In Sodium Chloride 0.9% 100 ml @ 25 mls/hr IVPB Q8HR [facility] Rx# :[id number] Sodium Chloride 0.9% 1, 960 1200 1200 000 ml @ 120 mls/hr IV . Q8H20M [facility] Rx#:[id number] Oral 100 0 50 Other: Voiding Method Toilet Toilet Toilet # Voids 2 2 3 - Exam -GENERAL: The patient is alert and oriented x3, not in any acute distress. Obese HEENT: Pupils are round and equally reacting to light. EOMI. No scleral icterus. No conjunctival pallor. Normocephalic, atraumatic. No pharyngeal erythema. No thyromegaly. CARDIOVASCULAR: S1 and S2 present. No murmurs, rubs, or gallops. PULMONARY: Chest is clear to auscultation, no wheezing or crackles. -ABDOMEN: Soft, improving epigastric tenderness with no rebound tenderness, nondistended, normoactive bowel sounds. No palpable organomegaly. MUSCULOSKELETAL: No joint swelling or deformity. EXTREMITIES: No cyanosis, clubbing, or pedal edema. NEUROLOGICAL: Gross neurological examination did not reveal any focal deficits. SKIN: No rashes. no petechiae. - Labs CBC & Chem 7: 08/14/19 06:45 08/14/19 06:45 Labs: Abnormal Lab Results - Last 24 Hours (Table) 08/13/19 08/14/19 Range/Units 05:51 06:45 WBC 13.6 H (3.8-10.6) k/uL Neutrophils # 10.5 H (1.3-7.7) k/uL Iron 34 L (65-175) ug/dL Iron Saturation 9.37 L (15.00-50.00) Ferritin 738.3 H (22.0-322.0) ng/mL Assessment and Plan Assessment: Acute pancreatitis Possible metastasis to the bone. CT of the abdomen and pelvis: multiple sclerotic foci within the skeletal including femoral heads and left acetabulum Hepatomegaly Thickened proximal transverse colon suspicious for colitis High blood pressure, improved Chronic back pain Plan: This is a pleasant 54 years old male who presents with pancreatitis and skeletal skletal foci suspicious for metastasis. Continue with pain management, nothing by mouth, IV hydration. Consult GI. Consult oncology for skeletal lesions. Start on Zosyn Labs and medication were reviewed.. Continue same treatment. Continue with symptomatic treatment. Resume home medication. Monitor lytes and vitals. DVT and GI prophylaxis. Further recommendations of the clinical course of the patient DVT prophylaxis: Subcutaneous heparin GI Prophylaxis: Pepcid Prognosis is guarded
[2019-08-15] MEDS: HYDROmorphone 0.5 MG/0.5 ML SYRINGE IVP PRN ×2 (00:27→06:54)
[2019-08-15] MEDS: SODIUM CHLORIDE 0.9% 1,000 ML IV SCH (02:34)
[2019-08-15 04:40] VITALS: BP 133/88; RESP 18; TEMP 97.8
[2019-08-15 07:29] LABS: Basophils # (A) 0.1 k/uL (0-0.2); Basophils % (A) 1 %; Eosinophils # (A) 0.5 k/uL (0-0.7); Eosinophils % (A) 5 %; HCT 48.2 % (39.0-53.0); HGB 15.5 gm/dL (13.0-17.5); Lymphocytes # (A) 1.9 k/uL (1.0-4.8); Lymphocytes % (A) 20 %; MCH 31.2 pg (25.0-35.0); MCHC 32.1 g/dL (31.0-37.0); Mean Platelet Volume 7.4; Monocytes # (A) 0.7 k/uL (0-1.0); Monocytes % (A) 7 %; Neutrophils # (A) 6.2 k/uL (1.3-7.7); Neutrophils % (A) 66 %; Platelet Count 178 k/uL (150-450); RBC 4.97 m/uL (4.30-5.90); RDW 13.2 % (11.5-15.5); WBC 9.4 k/uL (3.8-10.6)
[2019-08-15 07:37] LABS: ALT 41 U/L (21-72); AST 23 U/L (17-59); African American GFR (CKD) >90 (>60 ml/min/1.73 sqM); Albumin 3.6 g/dL (3.5-5.0); Alkaline Phosphatase 57 U/L (38-126); Anion Gap 10 mmol/L; Blood Urea Nitrogen 13 mg/dL (9-20); Calcium 9.2 mg/dL (8.4-10.2); Carbon Dioxide 24 mmol/L (22-30); Chloride 104 mmol/L (98-107); Glucose 97 mg/dL (74-99); Potassium 3.9 mmol/L (3.5-5.1); Sodium 138 mmol/L (137-145); Total Bilirubin 1.4 mg/dL (0.2-1.3); Total Protein 6.2 g/dL (6.3-8.2)
[2019-08-15] MEDS: FAMOTIDINE 20 MG/2 ML VIAL IV SCH (09:00)
[2019-08-15] MEDS: HEPARIN SODIUM,PORCINE 5,000 UNIT/ML 1 ML VIAL SQ SCH (09:00)
[2019-08-15] MEDS: PIPERACILLIN-TAZOBACTAM 3.375 GM in SODIUM CHLORIDE 0.9% 100 ML IVPB SCH (09:01)
[2019-08-15] MEDS: NICOTINE 21MG/24HR PATCH TRANSDERM SCH (09:01)
[2019-08-15 11:05] VITALS: PULSE 82
--- NOTE | 2019-08-15 12:55 | NM ---
EXAMINATION TYPE: NM bone scan whole body DATE OF EXAM: 08/15/2019 COMPARISON: X-ray 08/13/2019 HISTORY: Sclerotic lesions Delayed whole-body scanning was performed following the injection of 25.6 mCi Tc 99m MDP. Images acq uired 3 hours post injection. FINDINGS: No significant uptake is seen corresponding to the femoral head sclerotic lesions. Abnormal uptake in volving the feet and shoulders likely is post arthritic. IMPRESSION: No suspicious uptake diagnostic of metastases.
--- NOTE | 2019-08-15 14:57 | P.PN ---
Subjective Progress Note Date: 08/15/19 Principal diagnosis: Pancreatitis He was doing good today, just returned from bone scan. Hemoglobin improved although will see him in followup Objective - Vital Signs Vital signs: Vital Signs Temp 97.8 F 08/15/19 04:39 Pulse 82 08/15/19 08:00 Resp 18 08/15/19 08:00 BP 133/88 08/15/19 04:39 Pulse Ox 95 08/15/19 04:39 Intake & Output 08/14/19 08/15/19 08/15/19 18:59 06:59 18:59 Intake Total 1350 1140 360 Balance 1350 1140 360 Intake: Intake, IV Titration 1300 500 Amount Piperacillin-Tazobactam 3 100 .375 gm In Sodium Chloride 0.9% 100 ml @ 25 mls/hr IVPB Q8HR [facility] Rx# :[id number] Sodium Chloride 0.9% 1, 1200 500 000 ml @ 120 mls/hr IV . Q8H20M [facility] Rx#:[id number] Oral 50 640 360 Other: Voiding Method Toilet Toilet Toilet # Voids 3 1 3 - Exam General: Alert and Oriented x3, No Acute Distress Head: Normocytic, Atraumatic Neck: Supple Mouth: No Lesions, No Thrush Eyes: Non-sclerotic No Palpable cervical, supraclavicular, axillary adenopathy Heart: Regular Rate, Regular Rhythm Lungs: Clear to Ausculations, No Wheeze, No Rhonchi, Diminishe bilateral lower lobes, No increased respiratory effort noted Abdomen: Soft, Non-Distended, Non-Tended, BSx4 Extremities: No Edema, Equal Strength Neurological: No Focal Defects: No sensory or motor deficits noted Psych: Calm and cooperative - Labs CBC & Chem 7: 08/15/19 06:54 08/15/19 06:54 Labs: Abnormal Lab Results - Last 24 Hours (Table) 08/15/19 Range/Units 06:54 Total Bilirubin 1.4 H (0.2-1.3) mg/dL Total Protein 6.2 L (6.3-8.2) g/dL Microbiology - Last 24 Hours (Table) 08/13/19 19:36 Blood Culture - Preliminary Blood No Growth after 24 hours Assessment and Plan Plan: Assessment and Recommendations: Increased Hemoglobin/Hematocrit: - Likely secondary to everyday tobacco abuse although he states his family has a known "iron rich" blood and many of them require frequent blood donations. - Check Erythropoeitin and Iron Studies (although with pancreatitis may be inaccurate and follow-up outpatient to recheck) - Will await the above tests and continue work-up as appropriate - Did discuss with GI Sclerotic Bone Lesions on bilateral femoral heads and left Acetabulum: - Will further investigate with standard imaging Xrays, then if needed follow- up with Bone Scan - If an underlying Hematchromatosis deposits in bone and increased risks of osteopenia can result - Await standard imaging results. Pancreatitis: - Per primary Team Smoking Cessation. Plan: - Follow-up after discharge 4 weeks regarding increased hemoglobin after resolution of pancreatitis - Await bone scan MICHAEL Sharpe I have completed the full history and physical of this patient and developed the complete impression and plan, Agree with Valeri RODRIGUEZ, dictated as a sccribe
[2019-08-15] MEDS ORDERED: FAMOTIDINE 20 MG TAB PO SCH (21:00)
--- NOTE | 2019-08-15 22:51 | P.DS ---
Providers Date of admission: 08/12/19 12:34 Attending physician: Yanick Merida MD Consults: 08/12/19 12:35 Consult Physician Routine Consulting Provider: Martin Pompa Consult Reason/Comments: bone lesions Do you want consulting provider notified?: Yes Consult Physician Routine Consulting Provider: Penny Mcdermott Consult Reason/Comments: pancreatitis Do you want consulting provider notified?: Yes Primary care physician: Tamica Mead [facility] Course: Diagnoses: -Acute pancreatitis -CT of the abdomen and pelvis: multiple sclerotic foci within the skeletal including femoral heads and left acetabulum. Bone scan:no suspicious uptake diagnostic of metastasis -Hepatomegaly -Elevated hemoglobin, improved upon discharge -Thickened proximal transverse colon suspicious for colitis. Most likely incide ntal finding on CAT scan of the abdomen as patient has no symptoms -High blood pressure, improved -Chronic back pain Hospital course This is a pleasant 54 years old male with no significant past medical history except for chronic low back pain. He presents because of abdominal pain of 2 days' duration. Patient was found to have acute pancreatitis, mostly related to his alcohol abuse. Patient has been evaluated by GI team recommended to continue with conservative therapy. Patient was treated with nothing by mouth, IV fluids and pain medicine, patient showed interval improvement, diet was advanced into and he tolerated that well. Patient was cleared for discharge by GI team with recommendation for follow-up as an outpatient Also on admission patient had leukocytosis with low-grade fever at 99.9, chest x-ray was suspicious for bibasilar pneumonia, patient had been coughing prior to coming to the hospital however while he is in-house he had no coughing no chest pain or dyspnea, patient was treated with Zosyn and he showed interval improvement with no more fever and white cell count came back to normal at 9.4 if he is saturating 95% on room air, and his breathing quietly at 16-18/m. Patient will be discharged to short course of antibiotics on admission abdominal CAT scan showed sclerotic bones on both femoral heads and left acetabulum, patient has been evaluated by oncology team. Bone scan showing no suspicious uptake diagnostic of metastasis. X-ray of the hip showing the sclerotic lesions involving the femoral head most likely are benign in the absence of history of malignancy. Patient was instructed to follow up with his oncologist in 2-3 weeks for the sclerotic lesions and to check for erythropoietin and he agrees. his HB has been elevated hemoglobin upon admission at 18.2, with therapy patient hemoglobin came down to 15.5, and patient is asymptomatic. The patient was instructed to follow up with his receiving coordinator/oncologist as an outpatient and he agrees. Also patient was counseled to quit drinking alcohol and he agrees. Risks and benefits are explained Patient was cleared for discharge by both GI and oncology/hematology teams Problems and management plan were discussed with the patient and he verbalized understanding and acceptance Patient was found stable and can be discharged home however he needs follow-up as an outpatient. Patient was instructed to follow up with PCP within one week and patient agrees. pt agrees with appointments made for him with GI and PCP and their timing and states he will follow up . hem/onc office will call pt for appointment Gen: patient is a AAOx3, no distress. Obese CVS: S1-S2, RRR, no murmur Lungs: B/L CTA, no wheezing Abdomen: soft, no distention, no tenderness, positive bowel sounds Extremity: no leg edema or induration Time spent more than 35 minutes Health Concerns: Dr. Pompa office will call pt at home to schedule appointment Plan - Discharge Summary Discharge Rx Participant: No New Discharge Prescriptions: New Amoxic-Pot Clav 875-125Mg [Augmentin 875-125] 1 tab PO Q12HR 3 Days #6 tablet Nicotine 21Mg/24Hr Patch [Habitrol] 1 patch TRANSDERM DAILY #30 patch HYDROcodone/APAP 7.5-325MG [[place] 7.5-325] 1 each PO Q12H PRN 2 Days #4 tab PRN Reason: Pain Ondansetron [Zofran] 4 mg PO Q8HR PRN #6 tab PRN Reason: Nausea And Vomiting Continue Omeprazole 20 mg PO TID Discontinued Ibuprofen [Motrin] 800 mg PO Q8HR PRN PRN Reason: Pain Discharge Medication List Omeprazole 20 mg PO TID 08/12/19 [History] Amoxic-Pot Clav 875-125Mg [Augmentin 875-125] 1 tab PO Q12HR 3 Days #6 tablet 08/15/19 [Rx] HYDROcodone/APAP 7.5-325MG [[place] 7.5-325] 1 each PO Q12H PRN 2 Days #4 tab 08/15/19 [Rx] Nicotine 21Mg/24Hr Patch [Habitrol] 1 patch TRANSDERM DAILY #30 patch 08/15/19 [Rx] Ondansetron [Zofran] 4 mg PO Q8HR PRN #6 tab 08/15/19 [Rx] Follow up Appointment(s)/Referral(s): Martin Pompa MD [STAFF PHYSICIAN] - 3 Weeks (The office will call you with appointment time and date when they recive information and speak with the doctor.) Alyce Davey MD [Primary Care Provider] - 08/17/19 1:10 pm Penny Mcdermott MD [STAFF PHYSICIAN] - 09/03/19 4:15 pm (press tender ) Patient Instructions/Handouts: Hydrocodone/Acetaminophen (By mouth), Amoxicillin/Clavulanate Potassium (By mouth), Nicotine (Absorbed through the skin), Ondansetron (By mouth), Nicotine (By breathing) Activity/Diet/Wound Care/Special Instructions: diet as tolerated Activity limited until seen by DrHumble Serrano Disposition: HOME SELF-CARE
== END 2019-08-15 16:09 | disposition home or self-care (01) | DRG 439 ==
LOC: EC 10:05 → 3NMEDONC 12:34 → 4SSUR 14:02 → 3NMEDONC 16:16
PROVIDERS: ADMIT Internal Medicine; ATTEND Internal Medicine
DX: K85.20 Alcohol induced acute pancreatitis without necrosis or infection (principal); Z68.41 Body mass index [BMI] 40.0-44.9, adult; K52.9 Noninfective gastroenteritis and colitis, unspecified; M89.9 Disorder of bone, unspecified; R16.0 Hepatomegaly, not elsewhere classified; K21.9 Gastro-esophageal reflux disease without esophagitis; E66.9 Obesity, unspecified; F10.10 Alcohol abuse, uncomplicated; F17.200 Nicotine dependence, unspecified, uncomplicated; K57.90 Diverticulosis of intestine, part unspecified, without perforation or abscess without bleeding; K70.9 Alcoholic liver disease, unspecified; I10 Essential (primary) hypertension; G89.29 Other chronic pain; M54.5 Low back pain; F17.210 Nicotine dependence, cigarettes, uncomplicated; Z82.49 Family history of ischemic heart disease and other diseases of the circulatory system; Z98.890 Other specified postprocedural states
CPT/HCPCS: 36415; 71046; 73521; 74177; 76705; 78306; 80053; 81001; 82150; 82668; 82728; 83540; 83550; 83605; 83690; 84484; 85025; 87040; 93005; 96361; 96374; 96375; 99285

== ENCOUNTER 2020-01-28 17:25 | Inpatient (IN) | payer BC ==
[2020-01-28] MEDS ORDERED: SODIUM CHLORIDE 0.9% 2,000 ML IV STA (17:51)
[2020-01-28] MEDS ORDERED: HYDROmorphone 1 MG/ML 1 ML SYRINGE IVP STA (17:55)
[2020-01-28] MEDS ORDERED: KETOROLAC 30 MG/ML 1 ML VIAL IVP STA (17:55)
[2020-01-28] MEDS ORDERED: ONDANSETRON 4 MG/2 ML VIAL IVP STA (17:55)
[2020-01-28 18:23] LABS: Basophils % (A) 0 %; Eosinophils # (A) 0.2 k/uL (0-0.7); Eosinophils % (A) 2 %; HGB 18.9 gm/dL (13.0-17.5); Lymphocytes # (A) 1.3 k/uL (1.0-4.8); Lymphocytes % (A) 11 %; MCH 30.9 pg (25.0-35.0); MCHC 33.7 g/dL (31.0-37.0); MCV 91.7 fL (80.0-100.0); Mean Platelet Volume 7.6; Monocytes # (A) 0.3 k/uL (0-1.0); Monocytes % (A) 2 %; Neutrophils % (A) 85 %; Platelet Count 214 k/uL (150-450); RBC 6.11 m/uL (4.30-5.90); RDW 12.8 % (11.5-15.5); WBC 11.9 k/uL (3.8-10.6)
--- NOTE | 2020-01-28 18:28 | ED ---
Abdominal Pain HPI - General Chief Complaint: Abdominal Pain Stated Complaint: pancreatitis Time Seen by Provider: 01/28/20 17:44 Source: patient, RN notes reviewed Mode of arrival: ambulatory Limitations: no limitations - History of Present Illness Initial Comments: This a 54-year-old male presents emergency Department chief complaint abdominal pain. Patient states pain started over the weekend. Patient had progressive worsening pain last couple days. Patient admits nausea vomiting unable to keep anything down at this time. Patient states he has admitted in the past for acute pancreatitis states that they told him this was from alcohol. He has not drank alcohol. Patient denies any chest pain or shortness of breath states the pain is unbearable he denies any diarrhea, dysuria or hematuria no fevers or chills. - Related Data Home Medications Medication Instructions Recorded Confirmed Omeprazole 20 mg PO TID 08/12/19 08/12/19 Previous Rx's Medication Instructions Recorded Amoxic-Pot Clav 875-125Mg 1 tab PO Q12HR 3 Days #6 tablet 08/15/19 [Augmentin 875-125] HYDROcodone/APAP 7.5-325MG [[place] 1 each PO Q12H PRN 2 Days #4 tab 08/15/19 7.5-325] Nicotine 21Mg/24Hr Patch [Habitrol] 1 patch TRANSDERM DAILY #30 patch 08/15/19 Ondansetron [Zofran] 4 mg PO Q8HR PRN #6 tab 08/15/19 Allergies Allergy/AdvReac Type Severity Reaction Status Date / Time No Known Allergies Allergy Verified 01/28/20 17:43 Review of Systems ROS Statement: Those systems with pertinent positive or pertinent negative responses have been documented in the HPI. ROS Other: All systems not noted in ROS Statement are negative. Past Medical History Past Medical History: GERD/Reflux Additional Past Medical History / Comment(s): CHRONIC LOWER BACK PAIN. 39 year smoker History of Any Multi-Drug Resistant Organisms: None Reported Past Surgical History: Hernia Repair Past Anesthesia/Blood Transfusion Reactions: No Reported Reaction Past Psychological History: No Psychological Hx Reported Smoking Status: Current every day smoker Past Alcohol Use History: Occasional Past Drug Use History: None Reported - Past Family History Mother Family Medical History: No Reported History Father Family Medical History: Hypertension General Exam Limitations: no limitations General appearance: alert, in no apparent distress Head exam: Present: atraumatic, normocephalic, normal inspection Eye exam: Present: normal appearance, PERRL, EOMI. Absent: scleral icterus, conjunctival injection, periorbital swelling ENT exam: Present: normal exam, normal oropharynx, mucous membranes moist, TM's normal bilaterally Neck exam: Present: normal inspection, full ROM. Absent: tenderness, meningismus, lymphadenopathy Respiratory exam: Present: normal lung sounds bilaterally. Absent: respiratory distress, wheezes, rales, rhonchi, stridor Cardiovascular Exam: Present: regular rate, normal rhythm, normal heart sounds. Absent: systolic murmur, diastolic murmur, rubs, gallop, clicks GI/Abdominal exam: Present: soft, tenderness (Moderate mid abdominal tenderness), normal bowel sounds. Absent: distended, guarding, rebound, rigid Back exam: Absent: CVA tenderness (R), CVA tenderness (L) Neurological exam: Present: alert, oriented X3, CN II-XII intact Skin exam: Present: warm, dry, intact, normal color. Absent: rash Course Vital Signs 01/28/20 17:41 Temperature 97.9 F Pulse Rate 71 Respiratory 20 Rate Blood Pressure 162/82 O2 Sat by Pulse 97 Oximetry Medical Decision Making - Medical Decision Making Patient's amylase and lipase are elevated. Patient be admitted for acute pancreatitis. Patient started on pain control antiemetics and IV fluids. - Lab Data Result diagrams: 01/28/20 17:50 01/28/20 18:37 Lab Results 01/28/20 01/28/20 01/28/20 Range/Units 17:50 17:50 17:50 WBC 11.9 H (3.8-10.6) k/uL RBC 6.11 H (4.30-5.90) m/uL Hgb 18.9 H (13.0-17.5) gm/dL Hct 56.0 H (39.0-53.0) % MCV 91.7 (80.0-100.0) fL MCH 30.9 (25.0-35.0) pg MCHC 33.7 (31.0-37.0) g/dL RDW 12.8 (11.5-15.5) % Plt Count 214 (150-450) k/uL Neutrophils % 85 % Lymphocytes % 11 % Monocytes % 2 % Eosinophils % 2 % Basophils % 0 % Neutrophils # 10.0 H (1.3-7.7) k/uL Lymphocytes # 1.3 (1.0-4.8) k/uL Monocytes # 0.3 (0-1.0) k/uL Eosinophils # 0.2 (0-0.7) k/uL Basophils # 0.0 (0-0.2) k/uL Sodium (137-145) mmol/L Potassium (3.5-5.1) mmol/L Chloride (98-107) mmol/L Carbon Dioxide (22-30) mmol/L Anion Gap mmol/L BUN (9-20) mg/dL Creatinine (0.66-1.25) mg/dL Est GFR (CKD-EPI)AfAm (>60 ml/min/1.73 sqM) Est GFR (CKD-EPI)NonAf (>60 ml/min/1.73 sqM) Glucose (74-99) mg/dL Plasma Lactic Acid [place] 2.0 (0.7-2.0) mmol/L Calcium (8.4-10.2) mg/dL Total Bilirubin (0.2-1.3) mg/dL AST (17-59) U/L ALT (4-49) U/L Alkaline Phosphatase (38-126) U/L Total Protein (6.3-8.2) g/dL Albumin (3.5-5.0) g/dL Amylase (30-110) U/L Urine Color Yellow Urine Appearance Clear (Clear) Urine pH 5.5 (5.0-8.0) Ur Specific [place] 1.020 (1.001-1.035) Urine Protein 1+ H (Negative) Urine Glucose (UA) 3+ H (Negative) Urine Ketones 3+ H (Negative) Urine Blood Trace H (Negative) Urine Nitrite Negative (Negative) Urine Bilirubin Negative (Negative) Urine Urobilinogen <2.0 (<2.0) mg/dL Ur Leukocyte Esterase Negative (Negative) Urine RBC 1 (0-5) /hpf Urine WBC 4 (0-5) /hpf Cellular Casts 7 (0) /lpf Urine Mucus Few H (None) /hpf 01/28/20 Range/Units 18:37 WBC (3.8-10.6) k/uL RBC (4.30-5.90) m/uL Hgb (13.0-17.5) gm/dL Hct (39.0-53.0) % MCV (80.0-100.0) fL MCH (25.0-35.0) pg MCHC (31.0-37.0) g/dL RDW (11.5-15.5) % Plt Count (150-450) k/uL Neutrophils % % Lymphocytes % % Monocytes % % Eosinophils % % Basophils % % Neutrophils # (1.3-7.7) k/uL Lymphocytes # (1.0-4.8) k/uL Monocytes # (0-1.0) k/uL Eosinophils # (0-0.7) k/uL Basophils # (0-0.2) k/uL Sodium 136 L (137-145) mmol/L Potassium 4.6 (3.5-5.1) mmol/L Chloride 102 (98-107) mmol/L Carbon Dioxide 21 L (22-30) mmol/L Anion Gap 13 mmol/L BUN 12 (9-20) mg/dL Creatinine 0.72 (0.66-1.25) mg/dL Est GFR (CKD-EPI)AfAm >90 (>60 ml/min/1.73 sqM) Est GFR (CKD-EPI)NonAf >90 (>60 ml/min/1.73 sqM) Glucose 194 H (74-99) mg/dL Plasma Lactic Acid [place] (0.7-2.0) mmol/L Calcium 9.3 (8.4-10.2) mg/dL Total Bilirubin 0.8 (0.2-1.3) mg/dL AST 41 (17-59) U/L ALT 58 H (4-49) U/L Alkaline Phosphatase 73 (38-126) U/L Total Protein 7.5 (6.3-8.2) g/dL Albumin 4.8 (3.5-5.0) g/dL Amylase 1358 H* (30-110) U/L Urine Color Urine Appearance (Clear) Urine pH (5.0-8.0) Ur Specific [place] (1.001-1.035) Urine Protein (Negative) Urine Glucose (UA) (Negative) Urine Ketones (Negative) Urine Blood (Negative) Urine Nitrite (Negative) Urine Bilirubin (Negative) Urine Urobilinogen (<2.0) mg/dL Ur Leukocyte Esterase (Negative) Urine RBC (0-5) /hpf Urine WBC (0-5) /hpf Cellular Casts (0) /lpf Urine Mucus (None) /hpf Disposition Clinical Impression: Acute pancreatitis Disposition: ADMITTED IP TO THIS HOSP Condition: Fair Referrals: Alyce Davey MD [Primary Care Provider] - 1-2 days
[2020-01-28 18:56] LABS: Appearance,Urine Clear (Clear); Bilirubin,Urine Negative (Negative); Blood,Urine Trace (Negative); Cellular Casts,Urine 7 /lpf (0); Color,Urine Yellow; Glucose,Urine (UA) 3+ (Negative); Leukocyte Esterase,Urine Negative (Negative); Mucus,Urine Few /hpf; Nitrite,Urine Negative (Negative); PH, Urine 5.5 (5.0-8.0); Protein,Urine 1+ (Negative); RBC,Urine 1 /hpf (0-5); Urobilinogen,Urine <2.0 mg/dL (<2.0); WBC,Urine 4 /hpf (0-5)
[2020-01-28 19:00] LABS: Ketones,Urine 3+ (Negative)
[2020-01-28 19:03] LABS: ALT 58 U/L (4-49); AST 41 U/L (17-59); African American GFR (CKD) >90 (>60 ml/min/1.73 sqM); Albumin 4.8 g/dL (3.5-5.0); Alkaline Phosphatase 73 U/L (38-126); Anion Gap 13 mmol/L; Blood Urea Nitrogen 12 mg/dL (9-20); Calcium 9.3 mg/dL (8.4-10.2); Carbon Dioxide 21 mmol/L (22-30); Chloride 102 mmol/L (98-107); Glucose 194 mg/dL (74-99); Non-African American GFR(CKD) >90 (>60 ml/min/1.73 sqM); Potassium 4.6 mmol/L (3.5-5.1); Sodium 136 mmol/L (137-145); Total Bilirubin 0.8 mg/dL (0.2-1.3); Total Protein 7.5 g/dL (6.3-8.2)
[2020-01-28 19:24] LABS: Amylase 1358 U/L (30-110)
[2020-01-28] MEDS ORDERED: HYDROmorphone 0.5 MG/0.5 ML SYRINGE IVP STA (19:39)
[2020-01-28] MEDS ORDERED: NALOXONE 0.4 MG/ML 1 ML VIAL IV PRN (19:56)
[2020-01-28] MEDS ORDERED: ONDANSETRON 4 MG/2 ML VIAL IVP PRN (19:56)
[2020-01-28] MEDS: SODIUM CHLORIDE 0.9% 1,000 ML IV SCH (19:59)
[2020-01-28] MEDS: HYDROmorphone 1 MG/ML 1 ML SYRINGE IVP PRN (23:14)
[2020-01-29] MEDS: KETOROLAC 30 MG/ML 1 ML VIAL IVP PRN (01:26)
[2020-01-29] MEDS: SODIUM CHLORIDE 0.9% 1,000 ML IV SCH ×4 (02:35→22:58)
[2020-01-29] MEDS: HYDROmorphone 1 MG/ML 1 ML SYRINGE IVP PRN ×7 (02:36→22:58)
[2020-01-29 12:48] LABS: African American GFR (CKD) >90 (>60 ml/min/1.73 sqM); Anion Gap 8 mmol/L; Blood Urea Nitrogen 14 mg/dL (9-20); Calcium 8.9 mg/dL (8.4-10.2); Carbon Dioxide 24 mmol/L (22-30); Chloride 106 mmol/L (98-107); Glucose 102 mg/dL (74-99); Non-African American GFR(CKD) >90 (>60 ml/min/1.73 sqM); Potassium 4.2 mmol/L (3.5-5.1); Sodium 138 mmol/L (137-145)
[2020-01-29 13:00] LABS: Amylase 424 U/L (30-110)
[2020-01-29 13:22] LABS: Basophils % (A) 0 %; Eosinophils # (A) 0.1 k/uL (0-0.7); Eosinophils % (A) 0 %; HCT 53.3 % (39.0-53.0); HGB 17.6 gm/dL (13.0-17.5); Lymphocytes % (A) 12 %; MCH 31.5 pg (25.0-35.0); MCV 95.5 fL (80.0-100.0); Mean Platelet Volume 7.8; Monocytes % (A) 6 %; Neutrophils # (A) 13.8 k/uL (1.3-7.7); Neutrophils % (A) 81 %; Platelet Count 195 k/uL (150-450); RBC 5.58 m/uL (4.30-5.90); RDW 13.1 % (11.5-15.5); WBC 17.1 k/uL (3.8-10.6)
[2020-01-29 16:13] LABS: T4, Free (Free Thyroxine) 1.48 ng/dL (0.78-2.19)
--- NOTE | 2020-01-29 21:12 | CONS ---
CONSULTATION DATE OF SERVICE: 01/29/2020 REQUESTING PHYSICIAN: Dr. Davey. REASON FOR CONSULTATION: Acute recurrent pancreatitis. HISTORY OF PRESENT ILLNESS: The patient is a 54 -year-old pleasant white male with history of moderate alcohol use, which he quit drinking in August of last year when he was admitted to the hospital with acute pancreatitis. He was in the hospital for four days and discharged home. Since then he quit drinking completely. Prior to that, he was drinking about a case that lasted for a week or 2. He presented to the hospital with 2 days of epigastric pain associated with some nausea, vomiting. He tried to go on a clear liquid diet. Took some Tylenol and Motrin at home with no help. The pain continued to progressively get worse and yesterday he had several episodes of emesis and came to the emergency room and subsequently noted to have elevated lipase consistent with acute pancreatitis. He is feeling somewhat better today. He still has pain mostly in the epigastric area, some nausea but no further episodes of emesis. PAST MEDICAL HISTORY: 1. Episode of pancreatitis in August of 2019. 2. Gastroesophageal reflux disease. ALLERGIES: None. SOCIAL HISTORY: Chronic smoker. Occasional alcohol use as mentioned above. FAMILY HISTORY: Mother unremarkable. Father hypertension. REVIEW OF SYSTEMS: CARDIOPULMONARY: No chest pain, shortness of breath. GENITOURINARY: No dysuria or hematuria. MUSCULOSKELETAL: Unremarkable. SKIN unremarkable. ENDOCRINE unremarkable. PSYCHIATRIC unremarkable. NEUROLOGY unremarkable. ENT/vision unremarkable. CONSTITUTIONAL: No recent weight loss. No fever, chills, night sweats. PHYSICAL EXAMINATION: Blood pressure is 140/86, pulse rate 91, temperature 99.3. HEENT examination unremarkable. Conjunctivae pink. Sclerae anicteric. Oral cavity no lesions. NECK: No JVD or lymph node enlargement. CHEST: Clear to auscultation. HEART: Regular rate and rhythm. ABDOMEN: Soft, mild diffuse tenderness in the epigastric area. Rest of the abdomen was benign. Bowel sounds are positive. No organomegaly. EXTREMITIES: No pedal edema. SKIN no rashes. NEUROLOGIC: Alert and oriented x3. No focal deficits. LABS: Amylase was 1358, lipase 9762. This morning, lipase is down to 1674. AST 41, ALT 58, T-bilirubin and alkaline phosphatase are normal. WBC 11.9, today is 17.1, hemoglobin 17.6, platelets normal. Basic metabolic panel is within normal limits. BUN and creatinine are normal. IMPRESSION: Acute recurrent pancreatitis in a patient with history of moderate alcohol use for the last 30 years duration, most likely dealing with alcohol-related chronic relapsing pancreatitis. The patient has quit drinking 5 months ago after his last episode of pancreatitis, noted to have elevated amylase and lipase consistent with acute pancreatitis. Serum transaminases are within normal limits except for minimal elevation of ALT. RECOMMENDATIONS: 1. Keep him n.p.o. except ice chips. 2. Pain medications as needed. 3. Aggressive IV hydration. 4. Repeat labs in the morning. 5. We will get a right an ultrasound of the right upper quadrant and pancreas. 6. We will follow with you closely. Thank you for this consultation. MMODL / IJN: [id number] /
--- NOTE | 2020-01-30 00:05 | P.HPIM ---
History of Present Illness H&P Date: 01/29/20 Chief Complaint: Abdominal pain Patient is a 54-year-old male with a known history of alcohol abuse quit since August 2019, previous history of acute pancreatitis, GERD and chronic low back pain and ongoing nicotine addiction presents to ER with complaints of abdominal pain. Abdominal pain is mainly epigastric region with sometimes radiate to the back. Patient has been having worsening abdominal pain for the past 2 days. He was having nausea and vomiting and unable to keep down food. Denied any fever or chills. No complaints of chest pain or shortness of breath. No cough or sputum production. Patient says that he quit drinking sometime in August 2019 after his worst episode of acute appendicitis. Patient had workup including CT of abdomen pelvis and ultrasound of the abdomen at the time. No gallstones were present. Patient denied any recent illnesses. Denied any unusual food intake. Patient was found to have elevated lipase and amylase level. Leukocytosis present. No fever no chills. AST, ALT, alk phos and bilirubin levels within normal limits. Review of Systems Constitutional: Patient denies any fever or chills . No generalized weakness or weight loss. Abdomen: Patient denied nausea vomiting and diarrhea and patient does have abdominal pain. Cardiovascular: Patient denies any chest pain or short of breath no palpitations. Respiratory: patient denied any cough is from production. No shortness of breath Neurologic: Patient denied any numbness or tingling headache. Musculoskeletal: Patient denies any complaints of joint swelling or deformity. Skin: Negative Psychiatric: Negative Endocrine: No heat or cold intolerance. No recent weight gain. Genitourinary: No dysuria or hematuria. All other 14 point ROS negative except the above Past Medical History Past Medical History: GERD/Reflux Additional Past Medical History / Comment(s): CHRONIC LOWER BACK PAIN. 39 year smoker- 1/2 ppd History of Any Multi-Drug Resistant Organisms: None Reported Past Surgical History: Hernia Repair Past Anesthesia/Blood Transfusion Reactions: No Reported Reaction Past Psychological History: No Psychological Hx Reported Smoking Status: Current every day smoker Past Alcohol Use History: None Reported Additional Past Alcohol Use History / Comment(s): SMOKED 39 YEARS, 1/2 PPD Past Drug Use History: None Reported - Past Family History Mother Family Medical History: No Reported History Father Family Medical History: Hypertension Medications and Allergies Home Medications Medication Instructions Recorded Confirmed Type HYDROcodone/APAP 7.5-325MG [[place] 1 tab PO DAILY PRN 01/28/20 01/28/20 History 7.5-325] Ibuprofen [Motrin Ib] 400 - 800 mg PO Q8H PRN 01/28/20 01/28/20 History Penicillin V Potassium [Pen Vee K] 500 mg PO QID 01/28/20 01/28/20 History Allergies Allergy/AdvReac Type Severity Reaction Status Date / Time No Known Allergies Allergy Verified 01/28/20 20:38 Physical Exam Vitals: Vital Signs Temp Pulse Pulse Resp BP BP Pulse Ox 01/29/20 07:00 98.7 F 76 17 150/90 91 L 01/29/20 02:04 98.4 F 77 18 137/84 91 L 01/28/20 22:39 98.2 F 67 18 168/96 93 L 01/28/20 21:37 98.2 F 66 20 161/95 90 L 01/28/20 20:19 166/102 01/28/20 20:04 74 18 180/106 90 L 01/28/20 17:41 97.9 F 71 20 162/82 97 Intake and Output 01/28/20 01/29/20 01/29/20 22:59 06:59 14:59 Other: Weight 122.47 kg PHYSICAL EXAMINATION: Patient is lying in the bed comfortably, no acute distress, awake alert and oriented.. HEENT: Normocephalic. Neck is supple. Pupils reactive. Nostrils clear. Oral c avity is moist. Ears reveal no drainage. Neck reveals no JVD, carotid bruits, or thyromegaly. CHEST EXAMINATION: Trachea is central. Symmetrical expansion. Lung arreguin clear to auscultation and percussion. CARDIAC: Normal S1, S2 with no gallops. No murmurs ABDOMEN: Soft. Mild epigastric tenderness. Bowel sounds normal. No organomegaly. No abdominal bruits. Extremities: reveal no edema. No clubbing or cyanosis Neurologically awake, alert, oriented x3 with well-coordinated movements. No f ocal deficits noted Skin: No rash or skin lesions. Psychiatric: Coperative. Nonsuicidal Musculoskeletal: No joint swelling or deformity. Normal range of motion. Results CBC & Chem 7: 01/29/20 12:11 01/29/20 12:11 Labs: Abnormal Lab Results - Last 24 Hours (Table) 01/28/20 01/28/20 01/28/20 Range/Units 17:50 17:50 18:37 WBC 11.9 H (3.8-10.6) k/uL RBC 6.11 H (4.30-5.90) m/uL Hgb 18.9 H (13.0-17.5) gm/dL Hct 56.0 H (39.0-53.0) % Neutrophils # 10.0 H (1.3-7.7) k/uL Sodium 136 L (137-145) mmol/L Carbon Dioxide 21 L (22-30) mmol/L Glucose 194 H (74-99) mg/dL ALT 58 H (4-49) U/L Amylase 1358 H* (30-110) U/L Lipase 9762 H (23-300) U/L Urine Protein 1+ H (Negative) Urine Glucose (UA) 3+ H (Negative) Urine Ketones 3+ H (Negative) Urine Blood Trace H (Negative) Urine Mucus Few H (None) /hpf Thrombosis Risk Factor Assmnt - DVT/VTE Prophylaxis DVT/VTE Prophylaxis: Pharmacologic Prophylaxis ordered - Choose All That Apply Any of the Below Risk Factors Present?: Yes Each Factor Represents 1 point: Age 41-60 years, Obesity (BMI >25) Other Risk Factors: No Other congenital or acquired thrombophilia - If yes, enter type in comment: No Thrombosis Risk Factor Assessment Total Risk Factor Score: 2 Thrombosis Risk Factor Assessment Level: Low Risk Assessment and Plan Assessment: Acute pancreatitis with elevated lipase and amylase levels. Likely related to alcohol use. Patient denied any recent alcohol intake History of pancreatitis in August 2019. History of hepatic steatosis GERD Chronic back pain Ongoing nicotine addiction Morbid obesity BMI 43.6 DVT prophylaxis with heparin subcu. Plan: Patient will be continued on IV hydration and nothing by mouth. Continue with IV pain medications. Continue with PPI. Will check lipid panel. Liver enzymes and bilirubin level within normal limits. Gastrology service will be consulted. Further recommendations based on the clinical course. smoking cessation has been counseled extensively. Time with Patient: Greater than 30
[2020-01-30] MEDS: KETOROLAC 30 MG/ML 1 ML VIAL IVP PRN ×3 (02:36→17:49)
[2020-01-30] MEDS: HYDROmorphone 0.5 MG/0.5 ML SYRINGE IVP PRN (05:50)
[2020-01-30] MEDS: SODIUM CHLORIDE 0.9% 1,000 ML IV SCH ×2 (05:51→21:38)
[2020-01-30 07:34] LABS: Basophils % (A) 0 %; Eosinophils # (A) 0.1 k/uL (0-0.7); Eosinophils % (A) 1 %; HCT 49.3 % (39.0-53.0); Lymphocytes # (A) 1.6 k/uL (1.0-4.8); Lymphocytes % (A) 10 %; MCH 30.7 pg (25.0-35.0); MCHC 32.5 g/dL (31.0-37.0); MCV 94.5 fL (80.0-100.0); Mean Platelet Volume 7.8; Monocytes % (A) 6 %; Neutrophils # (A) 12.9 k/uL (1.3-7.7); Neutrophils % (A) 82 %; Platelet Count 184 k/uL (150-450); RBC 5.22 m/uL (4.30-5.90); RDW 12.9 % (11.5-15.5); WBC 15.8 k/uL (3.8-10.6)
[2020-01-30 07:42] LABS: ALT 30 U/L (4-49); AST 24 U/L (17-59); African American GFR (CKD) >90 (>60 ml/min/1.73 sqM); Albumin 3.8 g/dL (3.5-5.0); Alkaline Phosphatase 68 U/L (38-126); Anion Gap 9 mmol/L; Blood Urea Nitrogen 17 mg/dL (9-20); Calcium 8.8 mg/dL (8.4-10.2); Carbon Dioxide 25 mmol/L (22-30); Chloride 104 mmol/L (98-107); Glucose 88 mg/dL (74-99); Non-African American GFR(CKD) >90 (>60 ml/min/1.73 sqM); Potassium 3.9 mmol/L (3.5-5.1); Sodium 138 mmol/L (137-145); Total Bilirubin 1.1 mg/dL (0.2-1.3); Total Protein 6.4 g/dL (6.3-8.2)
[2020-01-30] MEDS: HYDROmorphone 1 MG/ML 1 ML SYRINGE IVP PRN ×5 (09:08→21:39)
[2020-01-30] MEDS: PANTOPRAZOLE 40 MG/10 ML VIAL IVP SCH (09:08)
[2020-01-30 10:35] LABS: Amylase 117 U/L (30-110)
--- NOTE | 2020-01-30 12:53 | PN ---
PROGRESS NOTE DATE OF DICTATION: 01/30/2020 Patient is a 54-year-old pleasant white male with history of heavy alcohol abuse in the past, admitted to the hospital with abdominal pain, nausea, vomiting of 2 days duration noted to have elevated lipase and amylase consistent with chronic relapsing pancreatitis. The patient still continues to complain of abdominal pain. He has some nausea but no emesis, requiring pain medications every 3 hours. PHYSICAL EXAMINATION: On physical examination, appears comfortable, no apparent distress. Blood pressure 158/88, pulse rate 82, temperature 98.6. HEENT: Examination unremarkable. Conjunctivae pink. Sclerae anicteric. Oral cavity no lesions. NECK: No JVD or lymph node enlargement. CHEST: Clear to auscultation. HEART: Regular rate and rhythm. ABDOMEN: Soft. Mild tenderness in the epigastric area, localized in the periumbilical area, but the rest of the abdomen was benign. EXTREMITIES: No pedal edema. SKIN: No rashes. NEUROLOGIC: Alert and oriented x3. No focal deficits. LABS: Labs from today: WBC 15.8, hemoglobin 16, platelets normal. Basic metabolic panel is within normal limits including BUN and creatinine. Amylase 117 and lipase is down to 236. IMPRESSION: 1. Chronic relapsing pancreatitis, this being the second episode, last episode in August of 2019, most likely secondary to alcohol abuse. Patient quit drinking about 6 months ago. Still has epigastric discomfort, which is gradually improving. 2. Mild leukocytosis on the basis of acute pancreatitis. RECOMMENDATIONS: 1. Will start him on a clear liquid diet. 2. Pain medications as needed. 3. Increase ambulation. 4. Repeat labs in the morning. 5. We will follow with you closely. Thank you for this consultation. MMODL / IJN: [id number] /
--- NOTE | 2020-01-31 00:01 | P.PN ---
Subjective Progress Note Date: 01/30/20 Principal diagnosis: Acute pancreatitis Patient is a 54-year-old male with a known history of alcohol abuse quit since August 2019, previous history of acute pancreatitis, GERD and chronic low back pain and ongoing nicotine addiction presents to ER with complaints of abdominal pain. Abdominal pain is mainly epigastric region with sometimes radiate to the back. Patient has been having worsening abdominal pain for the past 2 days. He was having nausea and vomiting and unable to keep down food. Denied any fever or chills. No complaints of chest pain or shortness of breath. No cough or sputum production. Patient says that he quit drinking sometime in August 2019 after his worst episode of acute appendicitis. Patient had workup including CT of abdomen pelvis and ultrasound of the abdomen at the time. No gallstones were present. Patient denied any recent illnesses. Denied any unusual food intake. Patient was found to have elevated lipase and amylase level. Leukocytosis present 17.1. No fever no chills. AST, ALT, alk phos and bilirubin levels within normal limits. 01/30/2020 Patient denied any complaints of chest pain or shortness of breath. Currently l anabella in the bed comfortably. Still having some epigastric discomfort and pain. Amylase and lipase levels are trending down. Patient was started on clear liquid diet and advance as tolerated. Leukocytosis improved 15.8. Patient has been afebrile. No nausea no vomiting. No headache or dizziness or lightheadedness. Current medications reviewed. Objective - Vital Signs Vital signs: Vital Signs Temp 98.5 F 01/30/20 19:27 Pulse 89 01/30/20 19:27 Resp 18 01/30/20 19:27 BP 128/81 01/30/20 19:27 Pulse Ox 98 01/30/20 19:27 Intake & Output 01/30/20 01/30/20 01/31/20 06:59 18:59 06:59 Other: Voiding Method Toilet Toilet # Voids 1 - Exam PHYSICAL EXAMINATION: Patient is lying in the bed comfortably, no acute distress, awake alert and oriented.. HEENT: Normocephalic. Neck is supple. Pupils reactive. Nostrils clear. Oral cavity is moist. Ears reveal no drainage. Neck reveals no JVD, carotid bruits, or thyromegaly. CHEST EXAMINATION: Trachea is central. Symmetrical expansion. Lung arreguin clear to auscultation and percussion. CARDIAC: Normal S1, S2 with no gallops. No murmurs ABDOMEN: Soft. Mild epigastric tenderness. Bowel sounds normal. No organomegaly. No abdominal bruits. Extremities: reveal no edema. No clubbing or cyanosis Neurologically awake, alert, oriented x3 with well-coordinated movements. No focal deficits noted Skin: No rash or skin lesions. Psychiatric: Coperative. Nonsuicidal Musculoskeletal: No joint swelling or deformity. Normal range of motion. - Labs CBC & Chem 7: 01/30/20 06:43 01/30/20 06:43 Labs: Abnormal Lab Results - Last 24 Hours (Table) 01/30/20 01/30/20 Range/Units 06:43 06:43 WBC 15.8 H (3.8-10.6) k/uL Neutrophils # 12.9 H (1.3-7.7) k/uL Amylase 117 H (30-110) U/L Assessment and Plan Assessment: Acute pancreatitis with elevated lipase and amylase levels. Likely related to alcohol use. Patient denied any recent alcohol intake History of pancreatitis in August 2019. History of hepatic steatosis GERD Chronic back pain Ongoing nicotine addiction Morbid obesity BMI 43.6 DVT prophylaxis with heparin subcu. Plan: Patient will be continued on IV hydration and pain medications. started on clear liquid diet. Continue with PPI. lipid panel within normal limits. Liver enzymes and bilirubin level within normal limits. Gastrology service is following. Clinically improving slowly. Further recommendations based on the clinical course. smoking cessation has been counseled extensively. Time with Patient: Greater than 30
[2020-01-31] MEDS: HYDROmorphone 1 MG/ML 1 ML SYRINGE IVP PRN (00:54)
[2020-01-31] MEDS: KETOROLAC 30 MG/ML 1 ML VIAL IVP PRN ×2 (04:46→09:53)
[2020-01-31] MEDS: HYDROmorphone 0.5 MG/0.5 ML SYRINGE IVP PRN (06:21)
[2020-01-31] MEDS: SODIUM CHLORIDE 0.9% 1,000 ML IV SCH ×2 (06:21→11:48)
[2020-01-31] MEDS: PANTOPRAZOLE 40 MG/10 ML VIAL IVP SCH (07:59)
[2020-01-31 08:01] LABS: Basophils % (A) 0 %; Eosinophils # (A) 0.3 k/uL (0-0.7); Eosinophils % (A) 3 %; HCT 46.3 % (39.0-53.0); HGB 15.2 gm/dL (13.0-17.5); Lymphocytes # (A) 1.4 k/uL (1.0-4.8); Lymphocytes % (A) 12 %; MCH 30.6 pg (25.0-35.0); MCHC 32.9 g/dL (31.0-37.0); MCV 93.2 fL (80.0-100.0); Mean Platelet Volume 8.1; Monocytes # (A) 0.8 k/uL (0-1.0); Monocytes % (A) 6 %; Neutrophils # (A) 9.1 k/uL (1.3-7.7); Neutrophils % (A) 77 %; Platelet Count 166 k/uL (150-450); RBC 4.97 m/uL (4.30-5.90); RDW 12.8 % (11.5-15.5); WBC 11.8 k/uL (3.8-10.6)
[2020-01-31 08:13] VITALS: BP 175/95; PULSE 77; RESP 17; TEMP 98
[2020-01-31 08:13] LABS: African American GFR (CKD) >90 (>60 ml/min/1.73 sqM); Amylase 38 U/L (30-110); Anion Gap 6 mmol/L; Blood Urea Nitrogen 14 mg/dL (9-20); Calcium 8.5 mg/dL (8.4-10.2); Carbon Dioxide 23 mmol/L (22-30); Chloride 103 mmol/L (98-107); Glucose 153 mg/dL (74-99); Non-African American GFR(CKD) >90 (>60 ml/min/1.73 sqM); Potassium 3.7 mmol/L (3.5-5.1); Sodium 132 mmol/L (137-145)
--- NOTE | 2020-01-31 12:15 | P.DS ---
Providers Date of admission: 01/28/20 19:52 Expected date of discharge: 01/31/20 Attending physician: Yamile Holden Consults: 01/29/20 14:29 Consult Physician Routine Consulting Provider: ePnny Mcdermott Consult Reason/Comments: recurrent pancreatitis Do you want consulting provider notified?: Yes Primary care physician: Tamica Torres [facility] Course: Final diagnosis Acute pancreatitis with elevated lipase and amylase levels. Likely related to alcohol use History of pancreatitis in August 2019. History of hepatic steatosis GERD Chronic back pain Ongoing nicotine addiction Morbid obesity BMI 43.6 DVT prophylaxis Discharge disposition Patient is being discharged in a stable condition with guarded prognosis to home. Patient will follow-up with Dr. Davey upon discharge. Patient will need to follow-up with GI in the outpatient setting in 4 weeks. Total time taken is 35 minutes. History of present illness This is an 54-year-old male who was recently admitted with abdominal pain with acute pancreatitis and was being closely monitored. GI was following. Amylase and lipase were elevated. Patient was treated for the abdominal pain and repeat labs have trended down and are within normal limits. Patient will need repeat labs in the outpatient setting to monitor CBC along with a BMP is sodium was 132 today. White blood count trending down is 11.8 today. Patient instructed to follow-up with GI in the outpatient setting in approximately 4 weeks. Patient will be provided prescriptions for Protonix in the outpatient setting. Discussed with the patient at length about advancing diet slowly as tolerated. Also discussed with the patient about avoiding alcohol intake. Currently no reports of chest pain, shortness of breath, or palpitations. Patient is af ebrile. No reports of nausea or vomiting and patient is tolerating diet. Guarded prognosis. On exam vital signs are stable. Cardio S1, S2 are muffled. Respiratory shows diminished breath sounds at the bases with no rhonchi noted. Mild expiratory wheezing noted. Abdomen is soft and nontender. Nervous system shows no focal deficits . Please refer to medication reconciliation sheet for a list of medications. Patient Condition at Discharge: Stable Plan - Discharge Summary Discharge Rx Participant: Yes New Discharge Prescriptions: New Pantoprazole Sodium [Protonix] 40 mg PO DAILY #30 tablet. Continue Ibuprofen [Motrin Ib] 400 - 800 mg PO Q8H PRN PRN Reason: Pain Penicillin V Potassium [Pen Vee K] 500 mg PO QID HYDROcodone/APAP 7.5-325MG [[place] 7.5-325] 1 tab PO DAILY PRN PRN Reason: Pain Discharge Medication List HYDROcodone/APAP 7.5-325MG [[place] 7.5-325] 1 tab PO DAILY PRN 01/28/20 [History] Ibuprofen [Motrin Ib] 400 - 800 mg PO Q8H PRN 01/28/20 [History] Penicillin V Potassium [Pen Vee K] 500 mg PO QID 01/28/20 [History] Pantoprazole Sodium [Protonix] 40 mg PO DAILY #30 tablet. 01/31/20 [Rx] Follow up Appointment(s)/Referral(s): Alyce Davey MD [Primary Care Provider] - 02/07/20 10:00 am Penny Mcdermott MD [STAFF PHYSICIAN] - 02/29/20 9:15 am (hospital F/U for acute pancreatitis) Ambulatory/Diagnostic Orders: Complete Blood Count w/diff [LAB.AMB] Time Frame: 2 Days, Location: None Selected Comprehensive Metabolic Panel [LAB.AMB] Time Frame: 2 Days, Location: None Selected Activity/Diet/Wound Care/Special Instructions: Activity Limited until follow-up Continue to advance diet slowly and advance as tolerated Follow-up with primary care provider upon discharge Follow-up with GI in 4 weeks Repeat labs in 2-3 days Discharge Disposition: HOME SELF-CARE
[2020-02-01] MEDS ORDERED: PANTOPRAZOLE 40 MG TABLET PO SCH (07:30)
== END 2020-01-31 13:14 | disposition home or self-care (01) | DRG 439 ==
LOC: EC 17:25 → 4SSUR 19:52
PROVIDERS: ADMIT Hospitalist; ATTEND Hospitalist
DX: K85.20 Alcohol induced acute pancreatitis without necrosis or infection (principal); Z68.41 Body mass index [BMI] 40.0-44.9, adult; E66.01 Morbid (severe) obesity due to excess calories; F17.200 Nicotine dependence, unspecified, uncomplicated; G89.29 Other chronic pain; K21.9 Gastro-esophageal reflux disease without esophagitis; Z82.49 Family history of ischemic heart disease and other diseases of the circulatory system; Z98.890 Other specified postprocedural states
CPT/HCPCS: 36415; 80048; 80053; 80061; 81001; 82150; 82607; 83605; 83690; 84439; 84443; 85025; 96361; 96374; 96375; 96376; 99285

== ENCOUNTER → 2020-01-28 | Outpatient (CLI) | payer BC | END | disposition home or self-care (01) | CPT/HCPCS: 36415; 80053; 82150; 83690; 85025 ==

== ENCOUNTER → 2020-02-02 | Outpatient (CLI) | payer BC ==
[2020-02-02 11:41] LABS: Basophils # (A) 0.1 k/uL (0-0.2); Basophils % (A) 1 %; Eosinophils # (A) 0.4 k/uL (0-0.7); Eosinophils % (A) 5 %; HGB 16.2 gm/dL (13.0-17.5); Lymphocytes # (A) 1.8 k/uL (1.0-4.8); Lymphocytes % (A) 23 %; MCH 30.3 pg (25.0-35.0); MCHC 32.5 g/dL (31.0-37.0); MCV 93.3 fL (80.0-100.0); Mean Platelet Volume 7.7; Monocytes # (A) 0.5 k/uL (0-1.0); Monocytes % (A) 7 %; Neutrophils # (A) 4.8 k/uL (1.3-7.7); Neutrophils % (A) 63 %; Platelet Count 217 k/uL (150-450); RBC 5.36 m/uL (4.30-5.90); RDW 12.7 % (11.5-15.5); WBC 7.6 k/uL (3.8-10.6)
[2020-02-02 22:56] LABS: Albumin/Globulin Ratio 2.22 (1.60-3.17); Anion Gap 8.5 mmol/L (4.00-12.00); BUN/Creat Ratio 17.78 Ratio (12.00-20.00); Carbon Dioxide 26.5 mmol/L (21.6-31.8); Globulin 1.8 g/dL (1.6-3.3); Non-African American GFR(CKD) 95.8 (60.0-200.0); Potassium 4.6 mmol/L (3.5-5.5); Total Bilirubin 0.6 mg/dL (0.2-1.2); Total Protein 5.8 g/dL (6.2-8.2)
== END | disposition home or self-care (01) ==
LOC: LABWHC1 11:05
PROVIDERS: ATTEND Registered Nurse
DX: E87.1 Hypo-osmolality and hyponatremia (principal)
CPT/HCPCS: 36415; 80053; 85025

== ENCOUNTER 2020-06-22 08:07 | Emergency (ER) | payer BC ==
[2020-06-22 08:14] VITALS: RESP 18; TEMP 98.2
[2020-06-22] MEDS ORDERED: SODIUM CHLORIDE 0.9% 2,000 ML IV STA (08:21)
--- NOTE | 2020-06-22 08:25 | ED ---
Abdominal Pain HPI - General Chief Complaint: Abdominal Pain Stated Complaint: pancreatitis issue Time Seen by Provider: 06/22/20 08:14 Source: patient, RN notes reviewed Mode of arrival: ambulatory Limitations: no limitations - History of Present Illness Initial Comments: 54-year-old male presents emergency Department chief complaint abdominal pain. Patient states pain is been increasing over last couple days. Patient states started in his mid to right upper quadrant he did have some mild discomfort in his back. He states this feels like his pancreatitis in the past though it's a little more to the right. Patient denies any fevers or chills no chest pain or shortness breath. Patient is has nausea without vomiting no diarrhea no constipation. Patient states that his been told this is from alcohol but states that he had a reoccurrence in January and which she had no alcohol and take between August and January. Patient states recently he did drink some alcohol and started eating more fatty foods. Patient states is swollen symptoms incre ase. He denied drinking last 24 hours. - Related Data Home Medications Medication Instructions Recorded Confirmed HYDROcodone/APAP 10-325MG [[place] 0.5 - 1 tab PO DAILY PRN 06/22/20 06/22/20 10-325] Ibuprofen [Motrin] 800 mg PO Q8H PRN 06/22/20 06/22/20 Previous Rx's Medication Instructions Recorded Amoxicillin/Potassium Clav 1 tab PO Q12HR #14 tab 06/22/20 [Augmentin 875-125 Tablet] Allergies Allergy/AdvReac Type Severity Reaction Status Date / Time No Known Allergies Allergy Verified 06/22/20 09:33 Review of Systems ROS Statement: Those systems with pertinent positive or pertinent negative responses have been documented in the HPI. ROS Other: All systems not noted in ROS Statement are negative. Past Medical History Past Medical History: GERD/Reflux Additional Past Medical History / Comment(s): CHRONIC LOWER BACK PAIN. 39 year smoker- 1/2 ppd History of Any Multi-Drug Resistant Organisms: None Reported Past Surgical History: Hernia Repair Past Anesthesia/Blood Transfusion Reactions: No Reported Reaction Past Psychological History: No Psychological Hx Reported Smoking Status: Current every day smoker Past Alcohol Use History: Occasional Past Drug Use History: None Reported - Past Family History Mother Family Medical History: No Reported History Father Family Medical History: Hypertension General Exam Limitations: no limitations General appearance: alert, in no apparent distress Head exam: Present: atraumatic, normocephalic, normal inspection Eye exam: Present: normal appearance, PERRL, EOMI. Absent: scleral icterus, conjunctival injection, periorbital swelling ENT exam: Present: normal exam, normal oropharynx, mucous membranes moist Neck exam: Present: normal inspection, full ROM. Absent: tenderness, meningismus, lymphadenopathy Respiratory exam: Present: normal lung sounds bilaterally. Absent: respiratory distress, wheezes, rales, rhonchi, stridor Cardiovascular Exam: Present: regular rate, normal rhythm, normal heart sounds. Absent: systolic murmur, diastolic murmur, rubs, gallop, clicks GI/Abdominal exam: Present: soft, tenderness (Moderate quadrant epigastric), normal bowel sounds. Absent: distended, guarding, rebound, rigid Back exam: Absent: CVA tenderness (R), CVA tenderness (L) Psychiatric exam: Present: normal affect, normal mood Skin exam: Present: warm, dry, intact, normal color. Absent: rash Course Vital Signs 06/22/20 08:11 Temperature 98.2 F Pulse Rate 82 Respiratory 18 Rate Blood Pressure 158/97 O2 Sat by Pulse 96 Oximetry Medical Decision Making - Medical Decision Making 54-year-old male presented for right upper quadrant pain. Patient's son shows a single image of of edema on ultrasound. Case discussed with Dr. Oscar who recommends patient we discharged him on antibiotics and follow-up in office on Tuesday. Patient's pain is greatly improved on reexamination he has no loc alized tenderness. - Lab Data Result diagrams: 06/22/20 08:40 06/22/20 08:40 Lab Results 06/22/20 06/22/20 06/22/20 Range/Units 08:40 08:40 08:40 WBC 9.7 (3.8-10.6) k/uL RBC 5.49 (4.30-5.90) m/uL Hgb 17.4 (13.0-17.5) gm/dL Hct 52.0 (39.0-53.0) % MCV 94.6 (80.0-100.0) fL MCH 31.6 (25.0-35.0) pg MCHC 33.4 (31.0-37.0) g/dL RDW 13.7 (11.5-15.5) % Plt Count 192 (150-450) k/uL Neutrophils % 63 % Lymphocytes % 24 % Monocytes % 8 % Eosinophils % 4 % Basophils % 1 % Neutrophils # 6.1 (1.3-7.7) k/uL Lymphocytes # 2.3 (1.0-4.8) k/uL Monocytes # 0.8 (0-1.0) k/uL Eosinophils # 0.4 (0-0.7) k/uL Basophils # 0.1 (0-0.2) k/uL Sodium 136 L (137-145) mmol/L Potassium 4.2 (3.5-5.1) mmol/L Chloride 104 (98-107) mmol/L Carbon Dioxide 23 (22-30) mmol/L Anion Gap 9 mmol/L BUN 16 (9-20) mg/dL Creatinine 0.69 (0.66-1.25) mg/dL Est GFR (CKD-EPI)AfAm >90 (>60 ml/min/1.73 sqM) Est GFR (CKD-EPI)NonAf >90 (>60 ml/min/1.73 sqM) Glucose 135 H (74-99) mg/dL Plasma Lactic Acid [place] (0.7-2.0) mmol/L Calcium 9.2 (8.4-10.2) mg/dL Total Bilirubin 0.7 (0.2-1.3) mg/dL AST 37 (17-59) U/L ALT 51 H (4-49) U/L Alkaline Phosphatase 68 (38-126) U/L Total Protein 6.3 (6.3-8.2) g/dL Albumin 4.1 (3.5-5.0) g/dL Lipase 256 (23-300) U/L Urine Color Yellow Urine Appearance Clear (Clear) Urine pH 5.0 (5.0-8.0) Ur Specific [place] 1.026 (1.001-1.035) Urine Protein Negative (Negative) Urine Glucose (UA) Negative (Negative) Urine Ketones Negative (Negative) Urine Blood Negative (Negative) Urine Nitrite Negative (Negative) Urine Bilirubin Negative (Negative) Urine Urobilinogen <2.0 (<2.0) mg/dL Ur Leukocyte Esterase Negative (Negative) 06/22/20 Range/Units 08:40 WBC (3.8-10.6) k/uL RBC (4.30-5.90) m/uL Hgb (13.0-17.5) gm/dL Hct (39.0-53.0) % MCV (80.0-100.0) fL MCH (25.0-35.0) pg MCHC (31.0-37.0) g/dL RDW (11.5-15.5) % Plt Count (150-450) k/uL Neutrophils % % Lymphocytes % % Monocytes % % Eosinophils % % Basophils % % Neutrophils # (1.3-7.7) k/uL Lymphocytes # (1.0-4.8) k/uL Monocytes # (0-1.0) k/uL Eosinophils # (0-0.7) k/uL Basophils # (0-0.2) k/uL Sodium (137-145) mmol/L Potassium (3.5-5.1) mmol/L Chloride (98-107) mmol/L Carbon Dioxide (22-30) mmol/L Anion Gap mmol/L BUN (9-20) mg/dL Creatinine (0.66-1.25) mg/dL Est GFR (CKD-EPI)AfAm (>60 ml/min/1.73 sqM) Est GFR (CKD-EPI)NonAf (>60 ml/min/1.73 sqM) Glucose (74-99) mg/dL Plasma Lactic Acid [place] 1.6 (0.7-2.0) mmol/L Calcium (8.4-10.2) mg/dL Total Bilirubin (0.2-1.3) mg/dL AST (17-59) U/L ALT (4-49) U/L Alkaline Phosphatase (38-126) U/L Total Protein (6.3-8.2) g/dL Albumin (3.5-5.0) g/dL Lipase (23-300) U/L Urine Color Urine Appearance (Clear) Urine pH (5.0-8.0) Ur Specific [place] (1.001-1.035) Urine Protein (Negative) Urine Glucose (UA) (Negative) Urine Ketones (Negative) Urine Blood (Negative) Urine Nitrite (Negative) Urine Bilirubin (Negative) Urine Urobilinogen (<2.0) mg/dL Ur Leukocyte Esterase (Negative) Disposition Clinical Impression: Abdominal pain, Biliary colic Disposition: HOME SELF-CARE Condition: Stable Instructions (If sedation given, give patient instructions): Abdominal Pain (ED), Low Fat Diet (ED) Additional Instructions: Please return to the Emergency Department if symptoms worsen or any other concerns. Prescriptions: Amoxicillin/Potassium Clav [Augmentin 875-125 Tablet] 1 tab PO Q12HR #14 tab Is patient prescribed a controlled substance at d/c from ED?: No Referrals: Alyce Davey MD [Primary Care Provider] - 1-2 days Rodney Oscar MD [STAFF PHYSICIAN] - 1-2 days
[2020-06-22 09:04] LABS: ALT 51 U/L (4-49); AST 37 U/L (17-59); African American GFR (CKD) >90 (>60 ml/min/1.73 sqM); Albumin 4.1 g/dL (3.5-5.0); Alkaline Phosphatase 68 U/L (38-126); Anion Gap 9 mmol/L; Blood Urea Nitrogen 16 mg/dL (9-20); Calcium 9.2 mg/dL (8.4-10.2); Carbon Dioxide 23 mmol/L (22-30); Chloride 104 mmol/L (98-107); Glucose 135 mg/dL (74-99); Non-African American GFR(CKD) >90 (>60 ml/min/1.73 sqM); Potassium 4.2 mmol/L (3.5-5.1); Sodium 136 mmol/L (137-145); Total Bilirubin 0.7 mg/dL (0.2-1.3); Total Protein 6.3 g/dL (6.3-8.2)
[2020-06-22 09:07] LABS: Appearance,Urine Clear (Clear); Bilirubin,Urine Negative (Negative); Blood,Urine Negative (Negative); Color,Urine Yellow; Glucose,Urine (UA) Negative (Negative); Ketones,Urine Negative (Negative); Leukocyte Esterase,Urine Negative (Negative); Nitrite,Urine Negative (Negative); Protein,Urine Negative (Negative); Specific Gravity,Urine 1.026 (1.001-1.035); Urobilinogen,Urine <2.0 mg/dL (<2.0)
[2020-06-22] MEDS ORDERED: KETOROLAC 30 MG/ML 1 ML VIAL IVP STA (09:07)
[2020-06-22] MEDS ORDERED: HYDROmorphone 0.5 MG/0.5 ML SYRINGE IVP STA (09:07)
[2020-06-22] MEDS ORDERED: ONDANSETRON 4 MG/2 ML VIAL IVP STA (09:07)
[2020-06-22 09:28] LABS: Basophils # (A) 0.1 k/uL (0-0.2); Basophils % (A) 1 %; Eosinophils # (A) 0.4 k/uL (0-0.7); Eosinophils % (A) 4 %; HGB 17.4 gm/dL (13.0-17.5); Lymphocytes # (A) 2.3 k/uL (1.0-4.8); Lymphocytes % (A) 24 %; MCH 31.6 pg (25.0-35.0); MCHC 33.4 g/dL (31.0-37.0); MCV 94.6 fL (80.0-100.0); Mean Platelet Volume 7.7; Monocytes # (A) 0.8 k/uL (0-1.0); Monocytes % (A) 8 %; Neutrophils # (A) 6.1 k/uL (1.3-7.7); Neutrophils % (A) 63 %; Platelet Count 192 k/uL (150-450); RBC 5.49 m/uL (4.30-5.90); RDW 13.7 % (11.5-15.5); WBC 9.7 k/uL (3.8-10.6)
--- NOTE | 2020-06-22 09:55 | US ---
EXAMINATION TYPE: US gallbladder DATE OF EXAM: 06/22/2020 COMPARISON: CT & US 2019 CLINICAL HISTORY: RUQ pain. History of pancreatitis. EXAM MEASUREMENTS: Liver Length: 18.2 cm Gallbladder Wall: 0.2 cm CBD: 0.4 cm Right Kidney: 9.5 x 5.4x 6.0 cm Somewhat limited examination due to overlying bowel gas. Pancreas: Visualized neck and proximal body normal. Liver: Enlarged. Hyperechoic liver with poor penetration and visualization of the posterior liver. Gallbladder: No cholelithiasis. No wall thickening. There is trace pericholecystic edema seen on sin gle image only. Administrative Project Coordinator reports POSITIVE sonographic Nguyen's sign. CBD: Normal. Right Kidney: No hydronephrosis. IMPRESSION: 1. No cholelithiasis or gallbladder wall thickening. There is trace pericholecystic edema seen on sin gle image only, and plugger reported positive sonographic Nguyen's sign. If there is clinical con cern for acute cholecystitis, recommend follow-up with nuclear medicine HIDA scan. 2. Visualized portions of the pancreas are normal. 3. Hepatomegaly and fatty liver. Nonvisualization of the posterior liver.
[2020-06-22 10:52] VITALS: BP 133/69; PULSE 63
== END 2020-06-22 10:51 | disposition home or self-care (01) ==
LOC: EC 08:07
DX: K80.50 Calculus of bile duct without cholangitis or cholecystitis without obstruction (principal); R60.0 Localized edema; G89.29 Other chronic pain; M54.5 Low back pain; F17.210 Nicotine dependence, cigarettes, uncomplicated; Z87.19 Personal history of other diseases of the digestive system
CPT/HCPCS: 36415; 80053; 83605; 83690; 85025; 81003; 76705; 99284; 96374; 96375 ×2; 96361 ×2; J2405; J1885; J1170

== ENCOUNTER → 2020-07-08 | Outpatient (CLI) | payer BC ==
--- NOTE | 2020-07-08 14:51 | NM ---
EXAMINATION TYPE: NM hepatobiliary w CCK DATE OF EXAM: 07/08/2020 COMPARISON: Ultrasound gallbladder 06/22/2020 HISTORY: Chronic cholecystitis TECHNIQUE: After the intravenous administration of 5.3 mCi Tc 99m Mebrofenin hepatobiliary scintigrap hy is performed. Immediate images post injection. FINDINGS: There is satisfactory initial accumulation of tracer by the liver. The gallbladder is visualized wit hin 5 minutes. The small bowel activity is noted within 10 minutes. At one hour CCK was administere d, patient was injected with 2.4 mcg of Kinevac, and gallbladder ejection fraction is calculated at 7 0 %, in the normal range. Therefore there is no scintigraphic evidence of cystic or common bile duct obstruction to suggest acute cholecystitis or gallbladder dyskinesia. IMPRESSION: Exam is within normal limits. No acute or chronic cholecystitis or biliary dyskinesia.
== END | disposition home or self-care (01) ==
LOC: RADNMMAIN 12:19
PROVIDERS: ATTEND Surgery
DX: K81.1 Chronic cholecystitis (principal)
CPT/HCPCS: 78227; A9537; J2805

== ENCOUNTER 2021-01-05 11:51 | Inpatient (IN) | payer BC ==
[2021-01-05] MEDS ORDERED: ONDANSETRON 4 MG/2 ML VIAL IVP STA (12:06)
[2021-01-05] MEDS ORDERED: HYDROmorphone 0.5 MG/0.5 ML SYRINGE IVP STA (12:06)
--- NOTE | 2021-01-05 12:09 | ED ---
General Adult HPI - General Chief complaint: Abdominal Pain Stated complaint: Abd pain Time Seen by Provider: 01/05/21 12:01 Source: patient, RN notes reviewed, old records reviewed Mode of arrival: ambulatory Limitations: no limitations - History of Present Illness Initial comments: 55-year-old male with history of both pancreatitis and chronic gallbladder issues. He is presenting for epigastric and right upper quadrant pain. Pain is been present since yesterday. There is associated nausea, no vomiting. He states he had a normal bowel movement today. No fever. No flank pain or shoulder pain. No chest pain or dyspnea. - Related Data Home Medications Medication Instructions Recorded Confirmed HYDROcodone/APAP 10-325MG [[place] 0.5 - 1 tab PO DAILY PRN 06/22/20 01/05/21 10-325] Ibuprofen [Motrin] 800 mg PO Q8H PRN 06/22/20 01/05/21 Allergies Allergy/AdvReac Type Severity Reaction Status Date / Time No Known Allergies Allergy Verified 01/05/21 12:35 Review of Systems ROS Statement: Those systems with pertinent positive or pertinent negative responses have been documented in the HPI. ROS Other: All systems not noted in ROS Statement are negative. Past Medical History Past Medical History: GERD/Reflux Additional Past Medical History / Comment(s): CHRONIC LOWER BACK PAIN, pancreatitis History of Any Multi-Drug Resistant Organisms: None Reported Past Surgical History: Hernia Repair Past Anesthesia/Blood Transfusion Reactions: No Reported Reaction Past Psychological History: No Psychological Hx Reported Smoking Status: Current every day smoker Past Alcohol Use History: Occasional Past Drug Use History: None Reported - Past Family History Mother Family Medical History: No Reported History Father Family Medical History: Hypertension General Exam Limitations: no limitations General appearance: alert, in no apparent distress Head exam: Present: atraumatic, normocephalic Eye exam: Present: normal appearance, PERRL ENT exam: Present: normal exam Neck exam: Present: normal inspection. Absent: tenderness Respiratory exam: Present: normal lung sounds bilaterally. Absent: respiratory distress, wheezes Cardiovascular Exam: Present: regular rate, normal rhythm GI/Abdominal exam: Present: soft, distended, tenderness (Epigastric and right upper quadrant). Absent: guarding, rebound Extremities exam: Present: normal inspection, normal capillary refill. Absent: pedal edema, calf tenderness Neurological exam: Present: alert, oriented X3, CN II-XII intact. Absent: motor sensory deficit Psychiatric exam: Present: normal affect, normal mood Skin exam: Present: warm, dry, intact. Absent: cyanosis, diaphoretic Course Vital Signs 01/05/21 11:57 Temperature 98.8 F Pulse Rate 72 Respiratory 18 Rate Blood Pressure 176/97 O2 Sat by Pulse 95 Oximetry EKG Findings - EKG Comments: EKG Findings:: EKG: Normal sinus rhythm, rate of 66, [place] interval 172, QRS duration 106, QTC 406, no ST segment elevation. Medical Decision Making - Medical Decision Making 55-year-old male presenting with abdominal pain, history of chronic gallbladder issues and pancreatitis. He does have some minimal epigastric pain as well as right upper quadrant pain. Workup is initiated ultrasound showing some biliary sludge, dilated common bile duct. Patient has significant elevated amylase and lipase consistent with an acute pancreatitis. Since total bili, AST and ALT are normal. He will be admitted for IV fluids, pain control. Consultation with both gastroenterology and general surgery. Case discussed with Dr. Falcon will admit. - Lab Data Result diagrams: 01/05/21 12:55 01/05/21 12:55 Lab Results 01/05/21 01/05/21 01/05/21 Range/Units 12:55 12:55 12:55 WBC 13.3 H (3.8-10.6) k/uL RBC 5.36 (4.30-5.90) m/uL Hgb 17.1 (13.0-17.5) gm/dL Hct 50.7 (39.0-53.0) % MCV 94.7 (80.0-100.0) fL MCH 31.8 (25.0-35.0) pg MCHC 33.6 (31.0-37.0) g/dL RDW 12.7 (11.5-15.5) % Plt Count 179 (150-450) k/uL MPV 7.5 Neutrophils % 76 % Lymphocytes % 14 % Monocytes % 6 % Eosinophils % 3 % Basophils % 1 % Neutrophils # 10.1 H (1.3-7.7) k/uL Lymphocytes # 1.8 (1.0-4.8) k/uL Monocytes # 0.8 (0-1.0) k/uL Eosinophils # 0.4 (0-0.7) k/uL Basophils # 0.1 (0-0.2) k/uL PT (9.0-12.0) sec INR (<1.2) APTT (22.0-30.0) sec Sodium 136 L (137-145) mmol/L Potassium 4.2 (3.5-5.1) mmol/L Chloride 103 (98-107) mmol/L Carbon Dioxide 24 (22-30) mmol/L Anion Gap 9 mmol/L BUN 18 (9-20) mg/dL Creatinine 0.67 (0.66-1.25) mg/dL Est GFR (CKD-EPI)AfAm >90 (>60 ml/min/1.73 sqM) Est GFR (CKD-EPI)NonAf >90 (>60 ml/min/1.73 sqM) Glucose 129 H (74-99) mg/dL Plasma Lactic Acid [place] (0.7-2.0) mmol/L Calcium 9.4 (8.4-10.2) mg/dL Total Bilirubin 0.7 (0.2-1.3) mg/dL AST 30 (17-59) U/L ALT 48 (4-49) U/L Alkaline Phosphatase 70 (38-126) U/L Troponin I (0.000-0.034) ng/mL Total Protein 6.5 (6.3-8.2) g/dL Albumin 4.1 (3.5-5.0) g/dL Amylase 722 H* (30-110) U/L Lipase 7295 H (23-300) U/L Urine Color Yellow Urine Appearance Clear (Clear) Urine pH 5.5 (5.0-8.0) Ur Specific [place] 1.027 (1.001-1.035) Urine Protein Negative (Negative) Urine Glucose (UA) Negative (Negative) Urine Ketones 1+ H (Negative) Urine Blood Negative (Negative) Urine Nitrite Negative (Negative) Urine Bilirubin Negative (Negative) Urine Urobilinogen <2.0 (<2.0) mg/dL Ur Leukocyte Esterase Negative (Negative) 01/05/21 01/05/21 01/05/21 Range/Units 12:55 12:55 12:55 WBC (3.8-10.6) k/uL RBC (4.30-5.90) m/uL Hgb (13.0-17.5) gm/dL Hct (39.0-53.0) % MCV (80.0-100.0) fL MCH (25.0-35.0) pg MCHC (31.0-37.0) g/dL RDW (11.5-15.5) % Plt Count (150-450) k/uL MPV Neutrophils % % Lymphocytes % % Monocytes % % Eosinophils % % Basophils % % Neutrophils # (1.3-7.7) k/uL Lymphocytes # (1.0-4.8) k/uL Monocytes # (0-1.0) k/uL Eosinophils # (0-0.7) k/uL Basophils # (0-0.2) k/uL PT 10.5 (9.0-12.0) sec INR 1.0 (<1.2) APTT 23.5 (22.0-30.0) sec Sodium (137-145) mmol/L Potassium (3.5-5.1) mmol/L Chloride (98-107) mmol/L Carbon Dioxide (22-30) mmol/L Anion Gap mmol/L BUN (9-20) mg/dL Creatinine (0.66-1.25) mg/dL Est GFR (CKD-EPI)AfAm (>60 ml/min/1.73 sqM) Est GFR (CKD-EPI)NonAf (>60 ml/min/1.73 sqM) Glucose (74-99) mg/dL Plasma Lactic Acid [place] 1.0 (0.7-2.0) mmol/L Calcium (8.4-10.2) mg/dL Total Bilirubin (0.2-1.3) mg/dL AST (17-59) U/L ALT (4-49) U/L Alkaline Phosphatase (38-126) U/L Troponin I <0.012 (0.000-0.034) ng/mL Total Protein (6.3-8.2) g/dL Albumin (3.5-5.0) g/dL Amylase (30-110) U/L Lipase (23-300) U/L Urine Color Urine Appearance (Clear) Urine pH (5.0-8.0) Ur Specific [place] (1.001-1.035) Urine Protein (Negative) Urine Glucose (UA) (Negative) Urine Ketones (Negative) Urine Blood (Negative) Urine Nitrite (Negative) Urine Bilirubin (Negative) Urine Urobilinogen (<2.0) mg/dL Ur Leukocyte Esterase (Negative) Disposition Clinical Impression: Pancreatitis, Fatty liver, Acute pancreatitis Disposition: ADMITTED IP TO THIS HOSP Condition: Stable Is patient prescribed a controlled substance at d/c from ED?: No Referrals: Alyce Davey MD [Primary Care Provider] - 1-2 days Decision to Admit Reason: Admit from EC Decision Date: 01/05/21 Decision Time: 14:30
--- NOTE | 2021-01-05 13:07 | US ---
EXAMINATION TYPE: US gallbladder DATE OF EXAM: 01/05/2021 COMPARISON: US 06/22/2020 CLINICAL HISTORY: RUQ pain. Difficult and limited exam due to patient body habitus and overlying tomas l gas EXAM MEASUREMENTS: Liver Length: 20.7 cm Gallbladder Wall: 0.27 cm, gallbladder somewhat hydropic CBD: 0.7 cm Right Kidney: 10.8 x 4.9 x 5.4 cm Pancreas: Obscured by bowel gas Liver: Increased attenuation, decreased visualization of vessels suggestive of fatty infiltrate. Hyp oechoic area adjacent to gallbladder measuring 4.4 x 1.0 x 2.4 cm, probably focal fatty sparing Gallbladder: Probable sludge visualized Evidence for sonographic Nguyen's sign: Yes CBD: appears dilated. distal portion obscured by bowel gas Right Kidney: No hydronephrosis or masses seen as visualized IMPRESSION: Hepatomegaly, correlate for hepatic steatosis. Tumefactive sludge within the gallbladder. Dilated common bile duct, consider gastroenterology consult, somewhat hydropic gallbladder. Limited exam.
[2021-01-05 13:15] LABS: Basophils # (A) 0.1 k/uL (0-0.2); Basophils % (A) 1 %; Eosinophils # (A) 0.4 k/uL (0-0.7); Eosinophils % (A) 3 %; HCT 50.7 % (39.0-53.0); HGB 17.1 gm/dL (13.0-17.5); Lymphocytes # (A) 1.8 k/uL (1.0-4.8); Lymphocytes % (A) 14 %; MCH 31.8 pg (25.0-35.0); MCHC 33.6 g/dL (31.0-37.0); MCV 94.7 fL (80.0-100.0); Mean Platelet Volume 7.5; Monocytes # (A) 0.8 k/uL (0-1.0); Monocytes % (A) 6 %; Neutrophils # (A) 10.1 k/uL (1.3-7.7); Neutrophils % (A) 76 %; Platelet Count 179 k/uL (150-450); RBC 5.36 m/uL (4.30-5.90); RDW 12.7 % (11.5-15.5); WBC 13.3 k/uL (3.8-10.6)
[2021-01-05 13:22] LABS: Appearance,Urine Clear (Clear); Bilirubin,Urine Negative (Negative); Blood,Urine Negative (Negative); Color,Urine Yellow; Glucose,Urine (UA) Negative (Negative); Ketones,Urine 1+ (Negative); Leukocyte Esterase,Urine Negative (Negative); Nitrite,Urine Negative (Negative); PH, Urine 5.5 (5.0-8.0); Protein,Urine Negative (Negative); Specific Gravity,Urine 1.027 (1.001-1.035); Urobilinogen,Urine <2.0 mg/dL (<2.0)
[2021-01-05 13:32] LABS: ALT 48 U/L (4-49); AST 30 U/L (17-59); African American GFR (CKD) >90 (>60 ml/min/1.73 sqM); Albumin 4.1 g/dL (3.5-5.0); Alkaline Phosphatase 70 U/L (38-126); Anion Gap 9 mmol/L; Blood Urea Nitrogen 18 mg/dL (9-20); Calcium 9.4 mg/dL (8.4-10.2); Carbon Dioxide 24 mmol/L (22-30); Chloride 103 mmol/L (98-107); Glucose 129 mg/dL (74-99); Non-African American GFR(CKD) >90 (>60 ml/min/1.73 sqM); Potassium 4.2 mmol/L (3.5-5.1); Sodium 136 mmol/L (137-145); Total Bilirubin 0.7 mg/dL (0.2-1.3); Total Protein 6.5 g/dL (6.3-8.2)
--- NOTE | 2021-01-05 13:34 | XR ---
EXAMINATION TYPE: XR KUB DATE OF EXAM: 01/05/2021 Comparison: None Clinical History: 55-year-old male abdominal pain Findings: Lung bases are clear. No evidence for free intraperitoneal air. No dilated small bowel air-fluid levels. Mild scattered stool burden. No suspicious calcifications are clearly seen. Limited assessment due to the large patient body habit us. Small phlebolith in the right side of the pelvis. Impression: No evidence for free air or bowel obstruction. Mild stool burden.
[2021-01-05 13:37] LABS: Partial Thromboplastin Time 23.5 sec (22.0-30.0); Prothrombin Time 10.5 sec (9.0-12.0)
[2021-01-05 13:57] LABS: Amylase 722 U/L (30-110)
[2021-01-05 14:14] LABS: Lipase 7295 U/L (23-300)
[2021-01-05] MEDS ORDERED: HYDROmorphone 1 MG/ML 1 ML SYRINGE IVP PRN ×2 (14:26→14:43)
[2021-01-05] MEDS ORDERED: PIPERACILLIN-TAZOBACTAM 3.375 GM in SODIUM CHLORIDE 0.9% 100 ML IVPB STA ×2 (14:26→14:49)
[2021-01-05] MEDS ORDERED: HYDROmorphone 1 MG/ML 1 ML SYRINGE IVP STA (14:26)
[2021-01-05] MEDS ORDERED: NALOXONE 0.4 MG/ML 1 ML VIAL IV PRN (14:26)
[2021-01-05] MEDS ORDERED: HYDROmorphone 0.5 MG/0.5 ML SYRINGE IVP PRN (14:26)
--- NOTE | 2021-01-05 15:29 | P.HPIM ---
History of Present Illness 55-year-old male left had history of a candidate for revascularization with complaints of epigastric abdominal pain severe sharp in nature started yesterday along with nausea no vomiting. Patient is found have elevated lipase and ul trasound of the gallbladder showed mildly dilated common bile duct of 0.7 m along with biliary sludge. Patient denied any fever chills. Patient liver enzymes are not elevated at this time. Patient does have L leukocytosis. Review of Systems REVIEW OF SYSTEMS: CONSTITUTIONAL: No fever, no malaise, no fatigue. HEENT: No recent visual problems or hearing problems. Denied any sore throat. CARDIOVASCULAR: No chest pain, orthopnea, PND, no palpitations, no syncope. PULMONARY: No shortness of breath, no cough, no hemoptysis. GASTROINTESTINAL: As mentioned in HPI NEUROLOGICAL: No headaches, no weakness, no numbness. HEMATOLOGICAL: Denies any bleeding or petechiae. GENITOURINARY: Denies any burning micturition, frequency, or urgency. MUSCULOSKELETAL/RHEUMATOLOGICAL: Denies any joint pain, swelling, or any muscle pain. ENDOCRINE: Denies any polyuria or polydipsia. The rest of the 14-point review of systems is negative. Past Medical History Past Medical History: GERD/Reflux Additional Past Medical History / Comment(s): CHRONIC LOWER BACK PAIN, pancreatitis History of Any Multi-Drug Resistant Organisms: None Reported Past Surgical History: Hernia Repair Past Anesthesia/Blood Transfusion Reactions: No Reported Reaction Past Psychological History: No Psychological Hx Reported Smoking Status: Current every day smoker Past Alcohol Use History: Occasional Past Drug Use History: None Reported - Past Family History Mother Family Medical History: No Reported History Father Family Medical History: Hypertension Medications and Allergies Home Medications Medication Instructions Recorded Confirmed Type HYDROcodone/APAP 10-325MG [[place] 0.5 - 1 tab PO DAILY PRN 06/22/20 01/05/21 History 10-325] Ibuprofen [Motrin] 800 mg PO Q8H PRN 06/22/20 01/05/21 History Allergies Allergy/AdvReac Type Severity Reaction Status Date / Time No Known Allergies Allergy Verified 01/05/21 12:35 Physical Exam Vitals: Vital Signs Temp Pulse Resp BP Pulse Ox 01/05/21 14:51 84 18 162/98 100 01/05/21 11:57 98.8 F 72 18 176/97 95 Intake and Output 01/05/21 01/05/21 01/05/21 06:59 14:59 22:59 Other: Weight 113.398 kg PHYSICAL EXAMINATION: GENERAL: The patient is alert and oriented x3, not in any acute distress. Well developed, well nourished. HEENT: Pupils are round and equally reacting to light. EOMI. No scleral icterus. No conjunctival pallor. Normocephalic, atraumatic. No pharyngeal erythema. No thyromegaly. CARDIOVASCULAR: S1 and S2 present. No murmurs, rubs, or gallops. PULMONARY: Chest is clear to auscultation, no wheezing or crackles. ABDOMEN: Moderate epigastric abdominal tenderness bowel sounds are present MUSCULOSKELETAL: No joint swelling or deformity. EXTREMITIES: No cyanosis, clubbing, or pedal edema. NEUROLOGICAL: Gross neurological examination did not reveal any focal deficits. SKIN: No rashes. Results CBC & Chem 7: 01/05/21 12:55 01/05/21 12:55 Labs: Abnormal Lab Results - Last 24 Hours (Table) 01/05/21 01/05/21 01/05/21 Range/Units 12:55 12:55 12:55 WBC 13.3 H (3.8-10.6) k/uL Neutrophils # 10.1 H (1.3-7.7) k/uL Sodium 136 L (137-145) mmol/L Glucose 129 H (74-99) mg/dL Amylase 722 H* (30-110) U/L Lipase 7295 H (23-300) U/L Urine Ketones 1+ H (Negative) Assessment and Plan Plan: -biliary pancreatitis: Bowel rest, nothing by mouth IV fluids, surgery was consulted and gastric body was consulted -Dilated common bile duct probably patient may have passed a stone or have common bile duct obstruction. -Obesity -DVT prophylaxis with Lovenox
[2021-01-05] MEDS: SODIUM CHLORIDE 0.9% 1,000 ML IV SCH (16:02)
[2021-01-05] MEDS: HYDROmorphone 1 MG/ML 1 ML SYRINGE IVP PRN ×2 (17:47→21:45)
[2021-01-05] MEDS ORDERED: KETOROLAC 15 MG/ML 1 ML VIAL IVP STA (20:32)
[2021-01-05] MEDS: ONDANSETRON 4 MG/2 ML VIAL IVP PRN (20:47)
[2021-01-06] MEDS: HYDROmorphone 1 MG/ML 1 ML SYRINGE IVP PRN ×7 (00:52→19:58)
[2021-01-06] MEDS: SODIUM CHLORIDE 0.9% 1,000 ML IV SCH ×3 (00:54→17:39)
[2021-01-06] MEDS: ENOXAPARIN 40 MG/0.4 ML SYRINGE SQ SCH (07:23)
[2021-01-06 07:34] LABS: HCT 49.1 % (39.0-53.0); HGB 16.3 gm/dL (13.0-17.5); MCH 31.9 pg (25.0-35.0); MCHC 33.1 g/dL (31.0-37.0); MCV 96.4 fL (80.0-100.0); Mean Platelet Volume 7.5; Platelet Count 168 k/uL (150-450); RDW 12.8 % (11.5-15.5); WBC 10.7 k/uL (3.8-10.6)
[2021-01-06 09:41] LABS: ALT 39 U/L (4-49); AST 25 U/L (17-59); African American GFR (CKD) >90 (>60 ml/min/1.73 sqM); Albumin 3.8 g/dL (3.5-5.0); Albumin/Globulin Ratio 1.7; Alkaline Phosphatase 59 U/L (38-126); Anion Gap 7 mmol/L; Blood Urea Nitrogen 15 mg/dL (9-20); Calcium 8.8 mg/dL (8.4-10.2); Carbon Dioxide 28 mmol/L (22-30); Chloride 100 mmol/L (98-107); Globulin 2.3 g/dL; Glucose 123 mg/dL (74-99); Lipase 891 U/L (23-300); Non-African American GFR(CKD) >90 (>60 ml/min/1.73 sqM); Potassium 4.3 mmol/L (3.5-5.1); Sodium 135 mmol/L (137-145); Total Bilirubin 0.8 mg/dL (0.2-1.3); Total Protein 6.1 g/dL (6.3-8.2)
--- NOTE | 2021-01-06 14:55 | P.GSCN ---
History of Present Illness Consult date: 01/06/21 History of present illness: CHIEF COMPLAINT: Abdominal pain HISTORY OF PRESENT ILLNESS: This is a 55-year-old male with a known history of pancreatitis, chronic gallbladder issues, GERD, nicotine dependence, bilateral inguinal hernia repair several years ago. Patient states that he drinks alcohol occasionally. However, he does report that when he drinks a can be up to 8-10 beers at a time. Patient presents to the emergency room with complaints of abdominal pain. His pain is located in the epigastric and right upper quadrant. He reports that he has had 3 days of abdominal pain with nausea. He reports that symptoms started after eating a buckley sandwich. Patient did have elevated pancreatic enzymes and has been diagnosed with pancreatitis. His currently nothing by mouth. This is patient's fourth episode of pancreatitis. He's been told that he is had microscopic gallstones in the past that have caused his pancreatitis. He had abdominal US that showed sludge within the gallbladder. Dilated common bile duct and hydropic gallbladder. Patient denies any fever, chills or sweats. He denies any change in bowel movements. PAST MEDICAL HISTORY: See list. PAST SURGICAL HISTORY: See list. MEDICATIONS: See list. ALLERGIES: See list. SOCIAL HISTORY: No illicit drug use. REVIEW OF SYSTEMS: CONSTITUTIONAL: Denies fever or chills. HEENT: Denies blurred vision, vision changes, or eye pain. Denies hemoptysis CARDIOVASCULAR: Denies chest pain or pressure. RESPIRATORY: No shortness of breath. GASTROINTESTINAL: See HPI for pertinent findings HEMATOLOGIC: Denies bleeding disorders. GENITOURINARY: Denies any blood in urine or increased urinary frequency. SKIN: Denies pruitis. Denies rash. PHYSICAL EXAM: VITAL SIGNS: Reviewed GENERAL: Well-developed in no acute distress. HEENT: No sclera icterus. Extraocular movements grossly intact. Moist buccal mucosa. Head is atraumatic, normocephalic. No nasal drainage. ABDOMEN: Soft. Obese. Nondistended. tenderness in RUQ and epigastric area NEUROLOGIC: Alert and oriented. Cranial nerves II through XII grossly intact. LABORATORY DATA: WBC 13.3 - 10.7 Lipase 7295-891 LFTS normal IMAGING: He had abdominal US that showed sludge within the gallbladder. Dilated common bile duct and hydropic gallbladder ASSESSMENT: 1. Gallstone pancreatitis 2. Acute cholecystitis PLAN: -Patient scheduled for laparoscopic cholecystectomy tomorrow with Dr. Oscar, 01/07/2021 -Patient nothing by mouth after midnight -Continue with IV fluids -Continue IV antibiotics -Continue pain medication as needed Thank you for this consultation Physician Postal Clerk note has been reviewed by physician. Signing provider agrees with the documented findings, assessment, and plan of care. Past Medical History Past Medical History: GERD/Reflux Additional Past Medical History / Comment(s): CHRONIC LOWER BACK PAIN, pancreatitis History of Any Multi-Drug Resistant Organisms: None Reported Past Surgical History: Hernia Repair Past Anesthesia/Blood Transfusion Reactions: No Reported Reaction Past Psychological History: No Psychological Hx Reported Smoking Status: Current every day smoker Past Alcohol Use History: Occasional Past Drug Use History: None Reported - Past Family History Mother Family Medical History: No Reported History Father Family Medical History: Hypertension Medications and Allergies Home Medications Medication Instructions Recorded Confirmed Type HYDROcodone/APAP 10-325MG [[place] 0.5 - 1 tab PO DAILY PRN 06/22/20 01/05/21 History 10-325] Ibuprofen [Motrin] 800 mg PO Q8H PRN 06/22/20 01/05/21 History Allergies Allergy/AdvReac Type Severity Reaction Status Date / Time No Known Allergies Allergy Verified 01/05/21 12:35 Surgical - Exam Vital Signs Temp Pulse Resp BP Pulse Ox 98.8 F 72 18 176/97 95 01/05/21 11:57 01/05/21 11:57 01/05/21 11:57 01/05/21 11:57 01/05/21 11:57 Results - Labs 01/06/21 06:40 01/06/21 06:40 Abnormal Lab Results - Last 24 Hours (Table) 01/06/21 01/06/21 01/06/21 Range/Units 06:40 06:40 06:40 WBC 10.7 H (3.8-10.6) k/uL Sodium 135 L (137-145) mmol/L Glucose 123 H (74-99) mg/dL Total Protein 6.1 L (6.3-8.2) g/dL Amylase 165 H (30-110) U/L Lipase 891 H (23-300) U/L Diabetes panel 01/06/21 Range/Units 06:40 Sodium 135 L (137-145) mmol/L Potassium 4.3 (3.5-5.1) mmol/L Chloride 100 (98-107) mmol/L Carbon Dioxide 28 (22-30) mmol/L BUN 15 (9-20) mg/dL Creatinine 0.68 (0.66-1.25) mg/dL Glucose 123 H (74-99) mg/dL Calcium 8.8 (8.4-10.2) mg/dL AST 25 (17-59) U/L ALT 39 (4-49) U/L Alkaline Phosphatase 59 (38-126) U/L Total Protein 6.1 L (6.3-8.2) g/dL Albumin 3.8 (3.5-5.0) g/dL Calcium panel 01/06/21 Range/Units 06:40 Calcium 8.8 (8.4-10.2) mg/dL Albumin 3.8 (3.5-5.0) g/dL Pituitary panel 01/06/21 Range/Units 06:40 Sodium 135 L (137-145) mmol/L Potassium 4.3 (3.5-5.1) mmol/L Chloride 100 (98-107) mmol/L Carbon Dioxide 28 (22-30) mmol/L BUN 15 (9-20) mg/dL Creatinine 0.68 (0.66-1.25) mg/dL Glucose 123 H (74-99) mg/dL Calcium 8.8 (8.4-10.2) mg/dL Adrenal panel 01/06/21 Range/Units 06:40 Sodium 135 L (137-145) mmol/L Potassium 4.3 (3.5-5.1) mmol/L Chloride 100 (98-107) mmol/L Carbon Dioxide 28 (22-30) mmol/L BUN 15 (9-20) mg/dL Creatinine 0.68 (0.66-1.25) mg/dL Glucose 123 H (74-99) mg/dL Calcium 8.8 (8.4-10.2) mg/dL Total Bilirubin 0.8 (0.2-1.3) mg/dL AST 25 (17-59) U/L ALT 39 (4-49) U/L Alkaline Phosphatase 59 (38-126) U/L Total Protein 6.1 L (6.3-8.2) g/dL Albumin 3.8 (3.5-5.0) g/dL
--- NOTE | 2021-01-06 15:28 | P.PN ---
Subjective Progress Note Date: 01/06/21 55-year-old male left had history of pancreatitis with complaints of epigastric abdominal pain severe sharp in nature started yesterday along with nausea no vomiting. Patient is found have elevated lipase and ultrasound of the gallbladder showed mildly dilated common bile duct of 0.7 m along with biliary sludge. Patient denied any fever chills. Patient liver enzymes are not elevated at this time. Patient does have leukocytosis. 01/06/2021 Patient is seen in follow-up today continues to have upper left and right quadrant abdominal discomfort that feels as sharp in nature. GI and surgery following an patient is scheduled to undergo laparoscopic cholecystectomy in the morning. Patient is currently maintained on IV antibiotic therapy and will continue at this time. To continue with IV hydration as patient will be nothing by mouth at midnight. Amylase trending down and is 165, lipase also trending down and 891. Sodium is 135 with a potassium of 4.3 and current creatinine is 0.68. White blood count also trending down at 10.7. Patient is afebrile. Review of systems: Constitutional: No reports of fatigue, fever, or chills Cardiovascular: No reports of chest pain or palpitations Respiratory: No reports of shortness of breath or cough GI: Reports occasional nausea, no reports of vomiting, or diarrhea reports left and right upper quadrant discomfort : No reports of dysuria or retention Neurovascular: No reports of weakness or numbness All medications have been reviewed Objective - Vital Signs Vital signs: Vital Signs Temp 98.3 F 01/06/21 04:22 Pulse 71 01/06/21 07:31 Resp 18 01/06/21 07:31 BP 132/86 01/06/21 04:22 Pulse Ox 94 L 01/06/21 04:22 Intake & Output 01/05/21 01/06/21 01/06/21 18:59 06:59 18:59 Intake Total 500 1500 Balance 500 1500 Weight 113.398 kg Intake: Intake, IV Titration 500 1500 Amount Sodium Chloride 0.9% 1, 500 1500 000 ml @ 125 mls/hr IV . Q8H [facility] Rx#:[id number] Other: Voiding Method Toilet Toilet Toilet # Voids 2 2 - Exam GENERAL: The patient is alert and oriented x3, not in any acute distress. Well developed, well nourished. HEENT: Pupils are round and equally reacting to light. EOMI. No scleral icterus. No conjunctival pallor. Normocephalic, atraumatic. No pharyngeal erythema. No thyromegaly. CARDIOVASCULAR: S1 and S2 present. No murmurs, rubs, or gallops. PULMONARY: Chest is clear to auscultation, no wheezing or crackles. ABDOMEN: Moderate epigastric abdominal tenderness along with the right and left upper quadrant tenderness on palpation, bowel sounds are present MUSCULOSKELETAL: No joint swelling or deformity. EXTREMITIES: No cyanosis, clubbing, or pedal edema. NEUROLOGICAL: Gross neurological examination did not reveal any focal deficits. SKIN: No rashes. - Labs CBC & Chem 7: 01/06/21 06:40 01/06/21 06:40 Labs: Abnormal Lab Results - Last 24 Hours (Table) 01/05/21 01/05/21 01/05/21 Range/Units 12:55 12:55 12:55 WBC 13.3 H (3.8-10.6) k/uL Neutrophils # 10.1 H (1.3-7.7) k/uL Sodium 136 L (137-145) mmol/L Glucose 129 H (74-99) mg/dL Total Protein (6.3-8.2) g/dL Amylase 722 H* (30-110) U/L Lipase 7295 H (23-300) U/L Urine Ketones 1+ H (Negative) 01/06/21 01/06/21 01/06/21 Range/Units 06:40 06:40 06:40 WBC 10.7 H (3.8-10.6) k/uL Neutrophils # (1.3-7.7) k/uL Sodium 135 L (137-145) mmol/L Glucose 123 H (74-99) mg/dL Total Protein 6.1 L (6.3-8.2) g/dL Amylase 165 H (30-110) U/L Lipase 891 H (23-300) U/L Urine Ketones (Negative) Assessment and Plan Assessment: -biliary pancreatitis: Bowel rest, nothing by mouth IV fluids, surgery is following. Patient will undergo laparoscopic cholecystectomy in the a.m. -Dilated common bile duct probably patient may have passed a stone or have common bile duct obstruction. -Obesity -DVT prophylaxis with Lovenox Plan: Continue with current medications. Patient is nothing by mouth and will continue with IV hydration. Will repeat a.m. labs and continue to monitor closely. Patient scheduled to undergo laparoscopic cholecystectomy in the morning. Will await report.
[2021-01-06] MEDS: PIPERACILLIN-TAZOBACTAM 3.375 GM in SODIUM CHLORIDE 0.9% 100 ML IVPB SCH (17:00)
[2021-01-06] MEDS: ONDANSETRON 4 MG/2 ML VIAL IVP PRN (19:49)
[2021-01-07] MEDS: PIPERACILLIN-TAZOBACTAM 3.375 GM in SODIUM CHLORIDE 0.9% 100 ML IVPB SCH ×4 (00:04→23:27)
[2021-01-07] MEDS: HYDROmorphone 1 MG/ML 1 ML SYRINGE IVP PRN ×6 (00:48→23:27)
[2021-01-07] MEDS: SODIUM CHLORIDE 0.9% 1,000 ML IV SCH ×2 (04:45→14:40)
[2021-01-07 05:45] LABS: Basophils % (A) 1 %; Eosinophils # (A) 0.3 k/uL (0-0.7); Eosinophils % (A) 4 %; HCT 48.5 % (39.0-53.0); HGB 15.4 gm/dL (13.0-17.5); Lymphocytes # (A) 2.4 k/uL (1.0-4.8); Lymphocytes % (A) 27 %; MCH 30.8 pg (25.0-35.0); MCHC 31.8 g/dL (31.0-37.0); MCV 96.7 fL (80.0-100.0); Mean Platelet Volume 7.7; Monocytes # (A) 0.7 k/uL (0-1.0); Monocytes % (A) 9 %; Neutrophils # (A) 5.1 k/uL (1.3-7.7); Neutrophils % (A) 59 %; Platelet Count 179 k/uL (150-450); RBC 5.01 m/uL (4.30-5.90); RDW 13.2 % (11.5-15.5); WBC 8.7 k/uL (3.8-10.6)
[2021-01-07 05:48] LABS: ALT 43 U/L (4-49); AST 36 U/L (17-59); African American GFR (CKD) >90 (>60 ml/min/1.73 sqM); Albumin 3.8 g/dL (3.5-5.0); Albumin/Globulin Ratio 1.7; Alkaline Phosphatase 63 U/L (38-126); Amylase 47 U/L (30-110); Anion Gap 8 mmol/L; Blood Urea Nitrogen 15 mg/dL (9-20); Calcium 8.9 mg/dL (8.4-10.2); Carbon Dioxide 25 mmol/L (22-30); Chloride 102 mmol/L (98-107); Globulin 2.3 g/dL; Glucose 93 mg/dL (74-99); Lipase 142 U/L (23-300); Non-African American GFR(CKD) >90 (>60 ml/min/1.73 sqM); Potassium 4.4 mmol/L (3.5-5.1); Sodium 135 mmol/L (137-145); Total Bilirubin 0.8 mg/dL (0.2-1.3); Total Protein 6.1 g/dL (6.3-8.2)
[2021-01-07] MEDS ORDERED: HYDROmorphone 0.5 MG/0.5 ML SYRINGE IVP PRN (07:00)
[2021-01-07] MEDS: ENOXAPARIN 40 MG/0.4 ML SYRINGE SQ SCH (08:25)
--- NOTE | 2021-01-07 09:33 | P.PN ---
Subjective Progress Note Date: 01/07/21 Principal diagnosis: Pancreatitis, abdominal pain Patient seen and examined sitting up in a chair. Patient states his abdominal pain is much better than when he came in. He did state he had some vomiting yesterday after a Popsicle in the evening. No further nausea or vomiting. Patient is scheduled for cholecystectomy today. Denies any fevers or chills. Liver enzymes remain within normal limits. Objective - Vital Signs Vital signs: Vital Signs Temp 98.0 F 01/07/21 08:00 Pulse 64 01/07/21 08:00 Resp 16 01/07/21 08:00 BP 137/87 01/07/21 08:00 Pulse Ox 97 01/07/21 08:00 Intake & Output 01/06/21 01/07/21 01/07/21 18:59 06:59 18:59 Other: Voiding Method Toilet Toilet # Voids 2 2 - Exam General appearance: The patient is alert, oriented, appears in no acute distress. Obese. HET: Head is normocephalic and atraumatic. Conjunctiva pink. Sclera anicteric. Neck: Supple without lymphadenopathy. Abdomen: Soft, right upper quadrant and epigastric tenderness, nondistended with bowel sounds. No guarding or rigidity. Extremities: Normal skin color and turgor. No pedal edema Skin: No rashes, no jaundice Neurological: No focal deficits. Alert and oriented 3. - Labs CBC & Chem 7: 01/07/21 04:26 01/07/21 04:26 Labs: Abnormal Lab Results - Last 24 Hours (Table) 01/06/21 01/06/21 01/07/21 Range/Units 06:40 06:40 04:26 Sodium 135 L 135 L (137-145) mmol/L Glucose 123 H (74-99) mg/dL Total Protein 6.1 L 6.1 L (6.3-8.2) g/dL Amylase 165 H (30-110) U/L Lipase 891 H (23-300) U/L Assessment and Plan (1) Abdominal pain Narrative/Plan: 55-year-old male presents to the hospital with complaints of abdominal pain found to have elevation in his amylase and lipase suggestive of pancreatitis. Patient's ultrasound of the abdomen showed hepatic steatosis as well as gallbladder sludge and a hydropic gallbladder. Currently pain is somewhat improved. Patient has tolerated some liquids. Tentative plan is for cholecystectomy tomorrow. Mild dilation of CBD on ultrasound imaging at 7 mm however liver enzymes are not suggestive of choledocholithiasis or obstructive process with total bilirubin 0.8, alkaline phosphatase 59, AST 25 and ALT 39. Current Visit: Yes Status: Acute Code(s): R10.9 - UNSPECIFIED ABDOMINAL PAIN SNOMED Code(s): 69226385 (2) Pancreatitis Current Visit: Yes Status: Acute Code(s): K85.90 - ACUTE PANCREATITIS WITHOUT NECROSIS OR INFECTION, UNSP SNOMED Code(s): 46166305 (3) Fatty liver Current Visit: Yes Status: Acute Code(s): K76.0 - FATTY (CHANGE OF) LIVER, NOT ELSEWHERE CLASSIFIED SNOMED Code(s): 049416132 Plan: Supportive care Nothing by mouth, then diet per surgery recommendations Repeat daily CMP Patient is scheduled for cholecystectomy today Continue IV fluid hydration Continue pain control Thank you for this consult, we will continue to follow Dr. Garcia I agree with the dictator's note, documented as a scribe by Noemí Rubi.
--- NOTE | 2021-01-07 09:51 | P.CONS ---
History of Present Illness - Reason for Consult Consult date: 01/06/21 Pancreatitis Requesting physician: Marjorie Falcon - Chief Complaint Abdominal pain - History of Present Illness 55-year-old female with a medical history significant for pancreatitis, GERD and obesity who presented to the hospital due to complaints of abdominal pain. He reports sharp severe abdominal pain described as stabbing in nature which started on Tuesday. The pain was in the epigastric region and right upper quadrant of his abdomen and he states that it radiated across his upper abdomen. Previously he had been hospitalized for pancreatitis which was attributed to alcohol use as the patient can drink up to 8-10 beers per day. Current symptoms started after eating a buckley sandwich. He was taken for ultrasound on presentation which showed hepatomegaly, hepatic steatosis and sludge in the gallbladder which appeared hydropic with a dilated 0.7 cm common bile duct. Laboratory evaluation significant for total bilirubin 0.8, alkaline phosphatase 59, AST 25 and ALT 39. The patient was found to have elevated lipase on presentation of 7295 with an amylase of 722. Patient has been seen by the surgical service with tentative plan for cholecystectomy tomorrow. Review of Systems REVIEW OF SYSTEMS: CONSTITUTIONAL: Denies any fevers, chills, weight change or fatigue. CARDIOVASCULAR: Denies any chest pain, palpitations high or low blood pressures RESPIRATORY: Denies any shortness of breath, hemoptysis or cough. GENITOURINARY: No dysuria or hematuria. MUSCULOSKELETAL: No weakness reported. SKIN: Denies any new rashes or lesions, jaundice or pallor. PSYCHIATRIC: Denies any depression or anxiety. NEUROLOGY: Denies headache, denies any new focal deficits. EARS/NOSE/THROAT: No recent hearing change, congestion, nasal discharge or sore throat. EYES: No pain in eyes, discharge or change in vision. GASTROINTESTINAL: As per HPI. Past Medical History Past Medical History: GERD/Reflux Additional Past Medical History / Comment(s): CHRONIC LOWER BACK PAIN, pancreatitis History of Any Multi-Drug Resistant Organisms: None Reported Past Surgical History: Hernia Repair Past Anesthesia/Blood Transfusion Reactions: No Reported Reaction Past Psychological History: No Psychological Hx Reported Smoking Status: Current every day smoker Past Alcohol Use History: Occasional Past Drug Use History: None Reported - Past Family History Mother Family Medical History: No Reported History Father Family Medical History: Hypertension Medications and Allergies Home Medications Medication Instructions Recorded Confirmed Type HYDROcodone/APAP 10-325MG [[place] 0.5 - 1 tab PO DAILY PRN 06/22/20 01/05/21 H istory 10-325] Ibuprofen [Motrin] 800 mg PO Q8H PRN 06/22/20 01/05/21 History Allergies Allergy/AdvReac Type Severity Reaction Status Date / Time No Known Allergies Allergy Verified 01/05/21 12:35 Physical Exam Vitals: Vital Signs Temp Pulse Pulse Resp BP BP Pulse Ox 01/06/21 07:31 71 18 01/06/21 04:22 98.3 F 71 18 132/86 94 L 01/05/21 20:00 99.1 F 78 18 128/84 93 L 01/05/21 15:31 98.1 F 76 18 161/99 93 L 01/05/21 14:51 84 18 162/98 100 Intake and Output 01/05/21 01/06/21 01/06/21 22:59 06:59 14:59 Intake Total 500 1500 Balance 500 1500 Intake: Intake, IV Titration 500 1500 Amount Sodium Chloride 0.9% 1, 500 1500 000 ml @ 125 mls/hr IV . Q8H [facility] Rx#:[id number] Other: Voiding Method Toilet Toilet # Voids 2 2 On physical examination, patient appears comfortable in no apparent distress. HEAD: Normocephalic, atraumatic. EYES: No scleral icterus. No conjunctival injection. MOUTH: No lesions, tongue midline. NECK: Trachea midline, no gross abnormalities. CHEST: Clear to auscultation with no wheezing or rhonchi appreciated. HEART: S1-S2 appreciated. ABDOMEN: Soft,mildly tender to palpation. Bowel sounds are positive. No organomegaly. No guarding or rigidity. EXTREMITIES: No pedal edema. SKIN: No rashes, no jaundice. NEUROLOGIC: Alert and oriented x3. No focal deficits. Results CBC & Chem 7: 01/07/21 04:26 01/07/21 04:26 Labs: Abnormal Lab Results - Last 24 Hours (Table) 01/05/21 01/05/21 01/05/21 Range/Units 12:55 12:55 12:55 WBC 13.3 H (3.8-10.6) k/uL Neutrophils # 10.1 H (1.3-7.7) k/uL Sodium 136 L (137-145) mmol/L Glucose 129 H (74-99) mg/dL Total Protein (6.3-8.2) g/dL Amylase 722 H* (30-110) U/L Lipase 7295 H (23-300) U/L Urine Ketones 1+ H (Negative) 01/06/21 01/06/21 01/06/21 Range/Units 06:40 06:40 06:40 WBC 10.7 H (3.8-10.6) k/uL Neutrophils # (1.3-7.7) k/uL Sodium 135 L (137-145) mmol/L Glucose 123 H (74-99) mg/dL Total Protein 6.1 L (6.3-8.2) g/dL Amylase 165 H (30-110) U/L Lipase 891 H (23-300) U/L Urine Ketones (Negative) US - abdomen: report reviewed (ultrasound of the abdomen showed hepatic steatosis as well as gallbladder sludge and a hydropic gallbladder. ) Assessment and Plan (1) Abdominal pain Narrative/Plan: 55-year-old male presents to the hospital with complaints of abdominal pain found to have elevation in his amylase and lipase suggestive of pancreatitis. Patient's ultrasound of the abdomen showed hepatic steatosis as well as gallbladder sludge and a hydropic gallbladder. Currently pain is somewhat improved. Patient has tolerated some liquids. Tentative plan is for cholecystectomy tomorrow. Mild dilation of CBD on ultrasound imaging at 7 mm however liver enzymes are not suggestive of choledocholithiasis or obstructive process with total bilirubin 0.8, alkaline phosphatase 59, AST 25 and ALT 39. Current Visit: Yes Status: Acute Code(s): R10.9 - UNSPECIFIED ABDOMINAL PAIN SNOMED Code(s): 13610263 (2) Acute pancreatitis Current Visit: Yes Status: Acute Code(s): K85.90 - ACUTE PANCREATITIS WITHOUT NECROSIS OR INFECTION, UNSP SNOMED Code(s): 352477789 (3) Fatty liver Current Visit: Yes Status: Acute Code(s): K76.0 - FATTY (CHANGE OF) LIVER, N OT ELSEWHERE CLASSIFIED SNOMED Code(s): 037546934 Plan: Supportive care Okay for clear liquids Surgical service following the patient Continue to monitor CBC, BMP, LFTs Continue IV fluid hydration Continue pain control Encourage ambulation as tolerated Defer management of gallbladder and cholecystectomy to the surgical service No plans for ERCP as obstructive process unlikely given normal liver enzymes and only mild dilation of the CBD at 7 mm Thank you for allowing us to participate in the care of the patient
[2021-01-07] MEDS: IV FLUID CONTINUATION 1,000 ML IV ONE (12:47)
[2021-01-07] MEDS ORDERED: DEXAMETHASONE SOD PHOSPHATE 4 MG/ML 1 ML VIAL IV ONE (13:00)
[2021-01-07] MEDS ORDERED: HEPARIN SODIUM,PORCINE 5,000 UNIT/ML 1 ML VIAL ONE (13:40)
[2021-01-07] MEDS ORDERED: MIDAZOLAM 2 MG/2 ML VIAL ONE (13:41)
[2021-01-07] MEDS ORDERED: LIDOCAINE 1% INJ 10MG/ML (20 ML MDV) ONE (13:41)
[2021-01-07] MEDS ORDERED: SUCCINYLCHOLINE CHLORIDE VIAL 200 MG/10 ML VIAL IV ONE (13:41)
[2021-01-07] MEDS ORDERED: PROPOFOL 10 MG/ML 20 ML VIAL IV ONE (13:41)
[2021-01-07] MEDS ORDERED: fentaNYL (PF) 50 MCG/ML 2 ML AMP ONE (13:41)
[2021-01-07] MEDS ORDERED: HEPARIN SODIUM,PORCINE 5,000 UNIT/ML 1 ML VIAL SQ ONE (13:42)
[2021-01-07] MEDS: IV FLUID CONTINUATION 400 ML IV ONE ×2 (13:43→17:41)
[2021-01-07] MEDS ORDERED: BUPIVACAINE-EPI 0.5%-1:200,000 10 ML VIAL SQ ONE (14:02)
--- NOTE | 2021-01-07 14:06 | P.PN ---
Subjective Progress Note Date: 01/07/21 55-year-old male left had history of pancreatitis with complaints of epigastric abdominal pain severe sharp in nature started yesterday along with nausea no vomiting. Patient is found have elevated lipase and ultrasound of the gallbladder showed mildly dilated common bile duct of 0.7 m along with biliary sludge. Patient denied any fever chills. Patient liver enzymes are not elevated at this time. Patient does have leukocytosis. 01/06/2021 Patient is seen in follow-up today continues to have upper left and right quadrant abdominal discomfort that feels as sharp in nature. GI and surgery following an patient is scheduled to undergo laparoscopic cholecystectomy in the morning. Patient is currently maintained on IV antibiotic therapy and will continue at this time. To continue with IV hydration as patient will be nothing by mouth at midnight. Amylase trending down and is 165, lipase also trending down and 891. Sodium is 135 with a potassium of 4.3 and current creatinine is 0.68. White blood count also trending down at 10.7. Patient is afebrile. 01/07/2021 No acute overnight issues noted. Patient states his abdominal discomfort has improved. Patient continues to be nothing by mouth as he is scheduled to undergo cholecystectomy today. Amylase and lipase much improved, amylase is 47, lipase is 142, current sodium is 135 with a potassium of 4.4. White blood count is normal and is 8.7, hemoglobin is stable at 15.4. Patient is continued on IV hydration along with IV Zosyn and will continue. Once diet is advanced per surgery recommendations we'll discontinue IV fluids. Review of systems: Constitutional: No reports of fatigue, fever, or chills Cardiovascular: No reports of chest pain or palpitations Respiratory: No reports of shortness of breath or cough GI: No Reports of nausea, no reports of vomiting, or diarrhea : No reports of dysuria or retention Neurovascular: No reports of weakness or numbness All medications have been reviewed Objective - Vital Signs Vital signs: Vital Signs Temp 98.7 F 01/07/21 04:38 Pulse 60 01/07/21 04:38 Resp 18 01/07/21 04:38 BP 166/75 01/07/21 04:38 Pulse Ox 97 01/07/21 04:38 Intake & Output 01/06/21 01/07/21 01/07/21 18:59 06:59 18:59 Other: Voiding Method Toilet Toilet # Voids 2 2 - Exam GENERAL: The patient is alert and oriented x3, not in any acute distress. Well developed, well nourished. HEENT: Pupils are round and equally reacting to light. EOMI. No scleral icterus. No conjunctival pallor. Normocephalic, atraumatic. No pharyngeal erythema. No thyromegaly. CARDIOVASCULAR: S1 and S2 present. No murmurs, rubs, or gallops. PULMONARY: Chest is clear to auscultation, no wheezing or crackles. ABDOMEN: Moderate epigastric abdominal tenderness along with the right and left upper quadrant tenderness on palpation, improved, bowel sounds are present MUSCULOSKELETAL: No joint swelling or deformity. EXTREMITIES: No cyanosis, clubbing, or pedal edema. NEUROLOGICAL: Gross neurological examination did not reveal any focal deficits. SKIN: No rashes. - Labs CBC & Chem 7: 01/07/21 04:26 01/07/21 04:26 Labs: Abnormal Lab Results - Last 24 Hours (Table) 01/06/21 01/06/21 01/07/21 Range/Units 06:40 06:40 04:26 Sodium 135 L 135 L (137-145) mmol/L Glucose 123 H (74-99) mg/dL Total Protein 6.1 L 6.1 L (6.3-8.2) g/dL Amylase 165 H (30-110) U/L Lipase 891 H (23-300) U/L Assessment and Plan Assessment: -biliary pancreatitis: Bowel rest, nothing by mouth IV fluids, surgery is following. Patient will undergo laparoscopic cholecystectomy this afternoon. Will await report. Amylase and lipase within normal limits today -Dilated common bile duct probably patient may have passed a stone or have common bile duct obstruction. -Obesity -DVT prophylaxis with Lovenox Plan: Continue with current medications. Patient is nothing by mouth and will continue with IV hydration and once diet is advanced and tolerated we'll discontinue fluids. Will repeat a.m. labs and continue to monitor closely. Patient scheduled to undergo laparoscopic cholecystectomy this afternoon. Will await report.
--- NOTE | 2021-01-07 14:25 | P.OP ---
Date of Procedure: 01/07/21 Preoperative Diagnosis: Cholecystitis Postoperative Diagnosis: Cholecystitis Procedure(s) Performed: Laparoscopic cholecystectomy Anesthesia: MAC Surgeon: Rodney Oscar Estimated Blood Loss (ml): 9 Pathology: other (Gallbladder) Condition: stable Disposition: PACU Description of Procedure: The patient was placed on the operating table. The patient received a general endotracheal tube anesthesia. The patients abdomen was prepped and draped in the usual sterile fashion. Through an infraumbilical stab incision, the fascia of the anterior abdominal wall was grasped with a pair of Kochers and then the Veress needle was placed in the peritoneal cavity. Position of the Veress needle was confirmed with positive drop test. The abdomen was then insufflated. After adequate insufflation, the 10 mm trocar was placed in the peritoneal cavity. Following this the laparoscope was placed in the peritoneal cavity. The patient was placed in the head-up, right side up position and then a 5 mm trocar was placed in the right lateral and right subcostal position under direct visualization. A 8 mm trocar was placed in the epigastric position. The gallbladder was grasped in the fundus and infundibulum. Traction on the gallbladder was placed in the lateral and the cephalad positions. The triangle of Calot was visualized.. The cystic duct was bluntly dissected until the union of the cystic duct and common bile duct was seen. A critical view of safety was achieved. The cystic duct was then divided and sealed with the Harmonic scissors. A PDS Endoloop was then placed throughout the cystic duct stump. The cystic artery divided and sealed with the Harmonic scissors. The gallbladder was then removed from the liver bed using Harmonic scissors. The gallbladder was then extracted through the epigastric port site. Operative field was checked for any bleeding spots and Harmonic scissors was used to coagulate the liver bed. The abdomen was irrigated. The trocars were removed. The skin was closed using interrupted 3-0 Vicryl suture. Dermabond dressing were applied. The patient tolerated the procedure well.
[2021-01-07] MEDS ORDERED: ALBUTEROL NEBULIZED 2.5 MG/3 ML INHALATION ONE (14:38)
[2021-01-07] MEDS: LACTATED RINGERS 1,000 ML IV SCH (14:40)
[2021-01-07] MEDS: HYDROmorphone 1 MG/ML 1 ML SYRINGE IVP ONE ×2 (14:52→14:59)
[2021-01-07] MEDS ORDERED: KETOROLAC 15 MG/ML 1 ML VIAL IVP ONE (15:16)
[2021-01-07] MEDS: LABETALOL SYRINGE 5 MG/ML IVP ONE ×2 (15:17→15:30)
[2021-01-08] MEDS: SODIUM CHLORIDE 0.9% 1,000 ML IV SCH ×3 (00:27→08:58)
[2021-01-08] MEDS: HYDROmorphone 1 MG/ML 1 ML SYRINGE IVP PRN ×2 (02:20→06:02)
[2021-01-08 09:00] LABS: Basophils # (A) 0.04 X 10*3/uL (0.00-0.10); Basophils % (A) 0.3 %; Eosinophils # (A) 0.11 X 10*3/uL (0.04-0.35); Eosinophils % (A) 0.9 %; HCT 46.8 % (39.6-50.0); HGB 15.6 g/dL (13.0-17.0); Lymphocytes # (A) 2.08 X 10*3/uL (0.90-5.00); Lymphocytes % (A) 17.8 %; MCH 31.8 pg (27.0-32.0); MCHC 33.3 g/dL (32.0-37.0); MCV 95.3 fL (80.0-97.0); Mean Platelet Volume 10.5 fL (9.5-12.2); Monocytes # (A) 1.17 X 10*3/uL (0.20-1.00); Neutrophils # (A) 8.29 X 10*3/uL (1.80-7.70); Neutrophils % (A) 70.8 %; Platelet Count 215 X 10*3/uL (140-440); RBC 4.91 X 10*6/uL (4.40-5.60); RDW 12.7 % (11.5-14.5); WBC 11.71 X 10*3/uL (4.50-10.00)
[2021-01-08] MEDS: ENOXAPARIN 40 MG/0.4 ML SYRINGE SQ SCH (09:04)
[2021-01-08] MEDS: PIPERACILLIN-TAZOBACTAM 3.375 GM in SODIUM CHLORIDE 0.9% 100 ML IVPB SCH (09:05)
[2021-01-08] MEDS ORDERED: HYDROcodone/APAP 5-325MG 1 EACH TAB PO PRN (09:06)
[2021-01-08 09:52] LABS: African American GFR (CKD) 110.3 (60.0-200.0); BUN/Creat Ratio 16.67 Ratio (12.00-20.00); Calcium 9.9 mg/dL (8.7-10.3); Non-African American GFR(CKD) 95.1 (60.0-200.0); Potassium 4.6 mmol/L (3.5-5.5)
[2021-01-08] MEDS: LACTATED RINGERS 1,000 ML IV SCH (09:55)
--- NOTE | 2021-01-08 10:57 | P.PN ---
Subjective Progress Note Date: 01/08/21 Principal diagnosis: Pancreatitis, abdominal pain Patient seen and examined sitting up in his recliner. He has status postop day 1 for cholecystectomy. He states he is doing well overall. Denies any fevers or chills. He started a regular diet yesterday evening. Denies any nausea, vomiting, or abdominal pain. States he is passing some flatus. Objective - Vital Signs Vital signs: Vital Signs Temp 98.5 F 01/08/21 05:00 Pulse 60 01/08/21 05:00 Resp 16 01/08/21 05:00 BP 143/84 01/08/21 05:00 Pulse Ox 97 01/08/21 05:00 Intake & Output 01/07/21 01/08/21 01/08/21 18:59 06:59 18:59 Intake Total 375 Output Total 10 Balance 365 Intake: IV 375 Output: Estimated Blood Loss 10 Other: Voiding Method Toilet Toilet Toilet # Voids 3 - Exam General appearance: The patient is alert, oriented, appears in no acute distress. Obese. HET: Head is normocephalic and atraumatic. Conjunctiva pink. Sclera anicteric. Neck: Supple without lymphadenopathy. Abdomen: Soft, nontender, surgical incision site clean dry and intact nondistended with bowel sounds. No guarding or rigidity. Extremities: Normal skin color and turgor. No pedal edema Skin: No rashes, no jaundice Neurological: No focal deficits. Alert and oriented 3. - Labs CBC & Chem 7: 01/08/21 06:05 01/08/21 06:05 Labs: Abnormal Lab Results - Last 24 Hours (Table) 01/08/21 01/08/21 Range/Units 06:05 06:05 WBC 11.71 H (4.50-10.00) X 10*3/uL Neutrophils # 8.29 H (1.80-7.70) X 10*3/uL Monocytes # 1.17 H (0.20-1.00) X 10*3/uL Glucose 121 H (70-110) mg/dL Assessment and Plan (1) Abdominal pain Narrative/Plan: 55-year-old male presents to the hospital with complaints of abdominal pain found to have elevation in his amylase and lipase suggestive of pancreatitis. Patient's ultrasound of the abdomen showed hepatic steatosis as well as gallbladder sludge and a hydropic gallbladder. Currently pain is somewhat improved. Patient has tolerated some liquids. Tentative plan is for cholecystectomy tomorrow. Mild dilation of CBD on ultrasound imaging at 7 mm however liver enzymes are not suggestive of choledocholithiasis or obstructive process with total bilirubin 0.8, alkaline phosphatase 59, AST 25 and ALT 39. Current Visit: Yes Status: Acute Code(s): R10.9 - UNSPECIFIED ABDOMINAL PAIN SNOMED Code(s): 51701244 (2) Pancreatitis Current Visit: Yes Status: Acute Code(s): K85.90 - ACUTE PANCREATITIS WITHOUT NECROSIS OR INFECTION, UNSP SNOMED Code(s): 05761775 (3) Fatty liver Current Visit: Yes Status: Acute Code(s): K76.0 - FATTY (CHANGE OF) LIVER, NOT ELSEWHERE CLASSIFIED SNOMED Code(s): 546803288 Plan: Supportive care Diet per surgery recommendations He is status post cholecystectomy Continue pain control as per surgical team Thank you for this consult, we will sign off at this time Dr. Garcia I agree with the dictator's note, documented as a scribe by Noemí Rubi.
[2021-01-08 11:48] VITALS: BP 151/88; PULSE 61; RESP 17; TEMP 98.7
--- NOTE | 2021-01-08 11:57 | P.PN ---
Subjective Progress Note Date: 01/08/21 CHIEF COMPLAINT: Cholecystitis HISTORY OF PRESENT ILLNESS: Patient is status post laparoscopic cholecystectomy postop day #1. Tolerated surgery well. He is tolerating diet. He is afebrile. Pain is controlled. Denies any nausea or vomiting. He is passing gas. No bowel movement. White count did jump to 11.71 likely related to the dose of dexamethasone. PHYSICAL EXAM: VITAL SIGNS: Reviewed. GENERAL: Well-developed in no acute distress. HEENT: No sclera icterus. Extraocular movements grossly intact. Moist buccal mucosa. Head is atraumatic, normocephalic. ABDOMEN: Soft. Nondistended. Incision sites clean dry and intact NEUROLOGIC: Alert and oriented. Cranial nerves II through XII grossly intact. ASSESSMENT: 1. Acute cholecystitis status post laparoscopic cholecystectomy 2. Pancreatitis PLAN: -Patient is stable from surgical standpoint for discharge -Patient follow-up with Dr. Oscar in 1 week -No antibiotics needed at discharge from surgical standpoint Physician Appliance Adjuster note has been reviewed by physician. Signing provider agrees with the documented findings, assessment, and plan of care. Objective - Vital Signs Vital signs: Vital Signs Temp 98.7 F 01/08/21 11:47 Pulse 61 01/08/21 11:47 Resp 17 01/08/21 11:47 BP 151/88 01/08/21 11:47 Pulse Ox 97 01/08/21 11:47 Intake & Output 01/07/21 01/08/21 01/08/21 18:59 06:59 18:59 Intake Total 375 Output Total 10 Balance 365 Intake: IV 375 Output: Estimated Blood Loss 10 Other: Voiding Method Toilet Toilet Toilet # Voids 3 - Labs CBC & Chem 7: 01/08/21 06:05 01/08/21 06:05 Labs: Abnormal Lab Results - Last 24 Hours (Table) 01/08/21 01/08/21 Range/Units 06:05 06:05 WBC 11.71 H (4.50-10.00) X 10*3/uL Neutrophils # 8.29 H (1.80-7.70) X 10*3/uL Monocytes # 1.17 H (0.20-1.00) X 10*3/uL Glucose 121 H (70-110) mg/dL
--- NOTE | 2021-01-09 15:01 | P.DS ---
Providers Date of admission: 01/05/21 14:26 Expected date of discharge: 01/08/21 Attending physician: Marjorie Falcon Consults: 01/05/21 14:27 Consult Physician Routine Consulting Provider: Rodney Oscar Consult Reason/Comments: Ab pain Do you want consulting provider notified?: Yes Consult Physician Routine Consulting Provider: Penny Mcdermott Consult Reason/Comments: AB pain Do you want consulting provider notified?: Yes Primary care physician: Tamica Mead Hospital Course: Final diagnosis -biliary pancreatitis -Status post cholecystectomy -Dilated common bile duct probably patient may have passed a stone or have common bile duct obstruction. -Obesity -DVT prophylaxis -Continued ongoing nicotine dependence -Full code Discharge disposition Patient is being discharged in a stable condition with guarded prognosis to home. Patient will follow-up with Dr. Davey in the outpatient setting upon discharge. Patient will follow-up with surgery in the outpatient setting. Total time taken is greater than 35 minutes. Hospital course 55-year-old male left had history of pancreatitis with complaints of epigastric abdominal pain severe sharp in nature started yesterday along with nausea no vomiting. Patient is found have elevated lipase and ultrasound of the gallbladder showed mildly dilated common bile duct of 0.7 m along with biliary sludge. Patient denied any fever chills. Patient liver enzymes are not elevated at this time. Patient does have leukocytosis. 01/06/2021 Patient is seen in follow-up today continues to have upper left and right xochitl drant abdominal discomfort that feels as sharp in nature. GI and surgery following an patient is scheduled to undergo laparoscopic cholecystectomy in the morning. Patient is currently maintained on IV antibiotic therapy and will continue at this time. To continue with IV hydration as patient will be nothing by mouth at midnight. Amylase trending down and is 165, lipase also trending down and 891. Sodium is 135 with a potassium of 4.3 and current creatinine is 0.68. White blood count also trending down at 10.7. Patient is afebrile. 01/07/2021 No acute overnight issues noted. Patient states his abdominal discomfort has improved. Patient continues to be nothing by mouth as he is scheduled to undergo cholecystectomy today. Amylase and lipase much improved, amylase is 47, lipase is 142, current sodium is 135 with a potassium of 4.4. White blood count is normal and is 8.7, hemoglobin is stable at 15.4. Patient is continued on IV hydration along with IV Zosyn and will continue. Once diet is advanced per surgery recommendations we'll discontinue IV fluids. 01/08/2021 Patient is seen in follow-up this morning is feeling much better status post cholecystectomy. Patient is requesting to go home today and states he is tolerating a regular diet with no reports of nausea or vomiting. Patient is passing gas although has not had a bowel movement as of yet. Patient instructed to continue with incentive spirometer at least 10 times every hour while awake. Monitor for any signs of postoperative complications including fever or decreased urine output. Patient instructed to follow-up with primary care provider upon discharge and has a scheduled appointment with surgery in the outpatient setting in 1 week. Patient instructed and educated to refrain from tobacco use. Currently no reports of chest pain, shortness of breath, or palpitations. Patient is afebrile. No reports of nausea or vomiting and patient is tolerating diet. Patient will be discharged home today. On exam vital signs are stable. Cardio S1, S2 are muffled. Respiratory system shows diminished breath sounds at the bases with no wheezing or rhonchi noted. Abdomen is soft and obese, and nontender. Nervous system shows no focal deficits. Please refer to medication reconciliation sheet for a list of medications. Patient Condition at Discharge: Stable Plan - Discharge Summary Discharge Rx Participant: No New Discharge Prescriptions: New Pantoprazole Sodium [Protonix] 40 mg PO DAILY #30 tablet. Continue Ibuprofen [Motrin] 800 mg PO Q8H PRN PRN Reason: Pain Or Fever > 100.5 HYDROcodone/APAP 10-325MG [[place] 10-325] 0.5 - 1 tab PO DAILY PRN PRN Reason: Pain Discharge Medication List HYDROcodone/APAP 10-325MG [[place] 10-325] 0.5 - 1 tab PO DAILY PRN 06/22/20 [History] Ibuprofen [Motrin] 800 mg PO Q8H PRN 06/22/20 [History] Pantoprazole Sodium [Protonix] 40 mg PO DAILY #30 tablet. 01/08/21 [Rx] Follow up Appointment(s)/Referral(s): Alyce Davey MD [Primary Care Provider] - 01/14/21 1:10 pm Rodney Oscar MD [STAFF PHYSICIAN] - 01/15/21 2:15 pm Patient Instructions/Handouts: *Surgery [facility] - ([facility]) Laparoscopic Cholecystectomy, Pantoprazole (By mouth), How to Stop Smoking (DC), Pancreatitis (DC) Activity/Diet/Wound Care/Special Instructions: Activity Limited until follow-up Follow-up with primary care provider upon discharge Continue with current diet and advance slowly as tolerated Follow up with surgery outpatient in one week Discharge Disposition: HOME SELF-CARE
== END 2021-01-08 13:50 | disposition home or self-care (01) | DRG 417 ==
LOC: EC 11:51 → 5NMEDONC 14:26
PROVIDERS: ADMIT Internal Medicine; ATTEND Internal Medicine
PROC: 0FT44ZZ Resection of Gallbladder, Percutaneous Endoscopic Approach (ICD-10-PCS; principal; 2021-01-05)
DX: K81.0 Acute cholecystitis (principal); K85.10 Biliary acute pancreatitis without necrosis or infection; K82.1 Hydrops of gallbladder; K83.8 Other specified diseases of biliary tract; E66.9 Obesity, unspecified; K21.9 Gastro-esophageal reflux disease without esophagitis; F17.200 Nicotine dependence, unspecified, uncomplicated; K76.0 Fatty (change of) liver, not elsewhere classified; G89.29 Other chronic pain; M54.5 Low back pain
CPT/HCPCS: 36415; 74018; 76705; 80048; 80053; 81003; 82150; 83605; 83690; 84484; 85025; 85027; 85610; 85730; 87635; 88304; 93005; 96374; 96375; 96376; 99285

== ENCOUNTER 2021-05-25 13:25 | Inpatient (IN) | payer BC ==
[2021-05-25] MEDS ORDERED: SODIUM CHLORIDE 0.9% 1,000 ML IV STA (14:05)
[2021-05-25] MEDS ORDERED: ONDANSETRON 4 MG/2 ML VIAL IVP STA (14:05)
[2021-05-25] MEDS ORDERED: HYDROmorphone 1 MG/ML 1 ML SYRINGE IVP STA ×2 (14:06→16:59)
[2021-05-25 14:49] LABS: Basophils # (A) 0.1 k/uL (0-0.2); Basophils % (A) 0 %; Eosinophils # (A) 0.3 k/uL (0-0.7); Eosinophils % (A) 2 %; HCT 52.6 % (39.0-53.0); HGB 18.4 gm/dL (13.0-17.5); Lymphocytes # (A) 1.8 k/uL (1.0-4.8); Lymphocytes % (A) 14 %; MCH 32.6 pg (25.0-35.0); Mean Platelet Volume 7.7; Monocytes # (A) 0.7 k/uL (0-1.0); Monocytes % (A) 5 %; Neutrophils # (A) 9.9 k/uL (1.3-7.7); Neutrophils % (A) 77 %; Platelet Count 188 k/uL (150-450); RBC 5.65 m/uL (4.30-5.90); RDW 12.8 % (11.5-15.5); WBC 12.8 k/uL (3.8-10.6)
[2021-05-25 14:55] LABS: Amorphous Sediment,Urine Rare /hpf; Appearance,Urine Clear (Clear); Bilirubin,Urine Negative (Negative); Blood,Urine Negative (Negative); Color,Urine Yellow; Glucose,Urine (UA) Negative (Negative); Ketones,Urine 2+ (Negative); Leukocyte Esterase,Urine Negative (Negative); Mucus,Urine Few /hpf; Nitrite,Urine Negative (Negative); PH, Urine 5.5 (5.0-8.0); Protein,Urine 1+ (Negative); RBC,Urine 1 /hpf (0-5); Specific Gravity,Urine 1.026 (1.001-1.035); Squamous Epithelial Cell,Urine <1 /hpf (0-4); Urobilinogen,Urine <2.0 mg/dL (<2.0); WBC,Urine 1 /hpf (0-5)
--- NOTE | 2021-05-25 15:01 | ED ---
Abdominal Pain HPI - General Chief Complaint: Abdominal Pain Stated Complaint: Abd pain Time Seen by Provider: 05/25/21 14:01 Source: patient, RN notes reviewed Mode of arrival: ambulatory Limitations: no limitations - History of Present Illness Initial Comments: 55-year-old male presents emergency Department chief complaint of lower abdominal pain. Patient's been increasing abdominal last 24 hours. Patient is nausea vomiting. Denies any diarrhea constipation dysuria hematuria no fevers or chills. Patient cholecystectomy verified Dr. Oscar in December. Patient states nothing really makes the pain feel better at this time. - Related Data Home Medications Medication Instructions Recorded Confirmed HYDROcodone/APAP 10-325MG [[place] 1 - 2 tab PO DAILY PRN 06/22/20 05/25/21 10-325] Ibuprofen [Motrin] 800 - 1,600 mg PO DAILY PRN 06/22/20 05/25/21 Allergies Allergy/AdvReac Type Severity Reaction Status Date / Time No Known Allergies Allergy Verified 05/25/21 16:42 Review of Systems ROS Statement: Those systems with pertinent positive or pertinent negative responses have been documented in the HPI. ROS Other: All systems not noted in ROS Statement are negative. Past Medical History Past Medical History: GERD/Reflux Additional Past Medical History / Comment(s): CHRONIC LOWER BACK PAIN, pancreatitis History of Any Multi-Drug Resistant Organisms: None Reported Past Surgical History: Cholecystectomy, Hernia Repair Past Anesthesia/Blood Transfusion Reactions: No Reported Reaction Past Psychological History: No Psychological Hx Reported Smoking Status: Current every day smoker Past Alcohol Use History: Occasional Past Drug Use History: None Reported - Past Family History Mother Family Medical History: No Reported History Father Family Medical History: Hypertension General Exam Limitations: no limitations General appearance: alert, in no apparent distress Head exam: Present: atraumatic, normocephalic, normal inspection Respiratory exam: Present: normal lung sounds bilaterally. Absent: respiratory distress, wheezes, rales, rhonchi, stridor Cardiovascular Exam: Present: regular rate, normal rhythm, normal heart sounds. Absent: systolic murmur, diastolic murmur, rubs, gallop, clicks GI/Abdominal exam: Present: soft, tenderness (Lower), normal bowel sounds. Absent: distended, guarding, rebound, rigid Back exam: Absent: CVA tenderness (R), CVA tenderness (L) Neurological exam: Present: alert Course Vital Signs 05/25/21 05/25/21 05/25/21 13:39 13:57 14:29 Temperature 98.6 F Pulse Rate 86 81 83 Respiratory 20 18 18 Rate Blood Pressure 181/99 157/97 172/103 O2 Sat by Pulse 95 96 96 Oximetry 05/25/21 17:42 Temperature Pulse Rate 70 Respiratory 18 Rate Blood Pressure 174/100 O2 Sat by Pulse 95 Oximetry Medical Decision Making - Medical Decision Making CT and labs show evidence of acute pancreatitis. Patient had recurrent pancreatitis in which she had a recent cholecystomy. Patient be admitted for further evaluation. - Lab Data Result diagrams: 05/25/21 14:17 05/25/21 16:59 Lab Results 05/25/21 05/25/21 05/25/21 Range/Units 14:17 14:17 14:17 WBC 12.8 H (3.8-10.6) k/uL RBC 5.65 (4.30-5.90) m/uL Hgb 18.4 H (13.0-17.5) gm/dL Hct 52.6 (39.0-53.0) % MCV 93.0 (80.0-100.0) fL MCH 32.6 (25.0-35.0) pg MCHC 35.0 (31.0-37.0) g/dL RDW 12.8 (11.5-15.5) % Plt Count 188 (150-450) k/uL MPV 7.7 Neutrophils % 77 % Lymphocytes % 14 % Monocytes % 5 % Eosinophils % 2 % Basophils % 0 % Neutrophils # 9.9 H (1.3-7.7) k/uL Lymphocytes # 1.8 (1.0-4.8) k/uL Monocytes # 0.7 (0-1.0) k/uL Eosinophils # 0.3 (0-0.7) k/uL Basophils # 0.1 (0-0.2) k/uL Sodium (137-145) mmol/L Potassium (3.5-5.1) mmol/L Chloride (98-107) mmol/L Carbon Dioxide (22-30) mmol/L Anion Gap mmol/L BUN (9-20) mg/dL Creatinine (0.66-1.25) mg/dL Est GFR (CKD-EPI)AfAm (>60 ml/min/1.73 sqM) Est GFR (CKD-EPI)NonAf (>60 ml/min/1.73 sqM) Glucose (74-99) mg/dL Plasma Lactic Acid Juanpablo 0.8 (0.7-2.0) mmol/L Calcium (8.4-10.2) mg/dL Total Bilirubin (0.2-1.3) mg/dL AST (17-59) U/L ALT (4-49) U/L Alkaline Phosphatase (38-126) U/L Total Protein (6.3-8.2) g/dL Albumin (3.5-5.0) g/dL Amylase (30-110) U/L Lipase (23-300) U/L Urine Color Yellow Urine Appearance Clear (Clear) Urine pH 5.5 (5.0-8.0) Ur Specific [place] 1.026 (1.001-1.035) Urine Protein 1+ H (Negative) Urine Glucose (UA) Negative (Negative) Urine Ketones 2+ H (Negative) Urine Blood Negative (Negative) Urine Nitrite Negative (Negative) Urine Bilirubin Negative (Negative) Urine Urobilinogen <2.0 (<2.0) mg/dL Ur Leukocyte Esterase Negative (Negative) Urine RBC 1 (0-5) /hpf Urine WBC 1 (0-5) /hpf Ur Squamous Epith Cells <1 (0-4) /hpf Amorphous Sediment Rare H (None) /hpf Urine Mucus Few H (None) /hpf 05/25/21 Range/Units 16:59 WBC (3.8-10.6) k/uL RBC (4.30-5.90) m/uL Hgb (13.0-17.5) gm/dL Hct (39.0-53.0) % MCV (80.0-100.0) fL MCH (25.0-35.0) pg MCHC (31.0-37.0) g/dL RDW (11.5-15.5) % Plt Count (150-450) k/uL MPV Neutrophils % % Lymphocytes % % Monocytes % % Eosinophils % % Basophils % % Neutrophils # (1.3-7.7) k/uL Lymphocytes # (1.0-4.8) k/uL Monocytes # (0-1.0) k/uL Eosinophils # (0-0.7) k/uL Basophils # (0-0.2) k/uL Sodium 137 (137-145) mmol/L Potassium 4.5 (3.5-5.1) mmol/L Chloride 103 (98-107) mmol/L Carbon Dioxide 26 (22-30) mmol/L Anion Gap 8 mmol/L BUN 12 (9-20) mg/dL Creatinine 0.65 L (0.66-1.25) mg/dL Est GFR (CKD-EPI)AfAm >90 (>60 ml/min/1.73 sqM) Est GFR (CKD-EPI)NonAf >90 (>60 ml/min/1.73 sqM) Glucose 126 H (74-99) mg/dL Plasma Lactic Acid [place] (0.7-2.0) mmol/L Calcium 9.1 (8.4-10.2) mg/dL Total Bilirubin 0.8 (0.2-1.3) mg/dL AST 75 H (17-59) U/L ALT 61 H (4-49) U/L Alkaline Phosphatase 86 (38-126) U/L Total Protein 6.6 (6.3-8.2) g/dL Albumin 4.3 (3.5-5.0) g/dL Amylase 501 H* (30-110) U/L Lipase 3869 H (23-300) U/L Urine Color Urine Appearance (Clear) Urine pH (5.0-8.0) Ur Specific [place] (1.001-1.035) Urine Protein (Negative) Urine Glucose (UA) (Negative) Urine Ketones (Negative) Urine Blood (Negative) Urine Nitrite (Negative) Urine Bilirubin (Negative) Urine Urobilinogen (<2.0) mg/dL Ur Leukocyte Esterase (Negative) Urine RBC (0-5) /hpf Urine WBC (0-5) /hpf Ur Squamous Epith Cells (0-4) /hpf Amorphous Sediment (None) /hpf Urine Mucus (None) /hpf Disposition Clinical Impression: Acute pancreatitis Disposition: ADMITTED IP TO THIS [facility] Condition: Fair Referrals: Alyce Davey MD [Primary Care Provider] - 1-2 days
--- NOTE | 2021-05-25 15:29 | CT ---
EXAMINATION TYPE: CT abdomen pelvis w con DATE OF EXAM: 05/25/2021 COMPARISON: 08/12/2019 HISTORY: Abdominal pain with nausea. CT DLP: 2295.8 mGycm CONTRAST: CT scan of the abdomen and pelvis is performed without Oral Contrast and with IV Contrast, patient in jected with 100 mL of Isovue 300. FINDINGS: LUNG BASES-: No visible nodule. No infiltrate. LIVER/GB: The gallbladder surgically absent. There is hepatomegaly with underlying hepatic steatosi s. No space occupying hepatic lesion. Biliary tree is of normal caliber. PANCREAS: There is mild fullness of the pancreas and minimal stranding. Correlate for very mild pancr eatitis with amylase and lipase. SPLEEN: No splenic enlargement. No lesion seen. ADRENALS: No nodule. No thickening. KIDNEYS/BLADDER: No hydronephrosis. No nephrolithiasis. No distinct renal mass. Urinary bladder g rossly unremarkable. BOWEL: Normal appendix. Normal bowel caliber. No inflammation. GENITAL ORGANS: No gross abnormality. LYMPH NODES: No greater than 1cm abdominal or pelvic lymph nodes are appreciated. AORTA: No significant abnormality. OSSEOUS STRUCTURES: No significant abnormality is seen. OTHER: No significant additional abnormality is seen. IMPRESSION: 1. There is mild fullness of the pancreas and minimal stranding. Correlate for very mild pancreatitis with amylase and lipase. 2. Fatty liver and hepatomegaly.
[2021-05-25] MEDS ORDERED: SODIUM CHLORIDE 0.9% 1,000 ML IV ONE (16:59)
[2021-05-25 17:25] LABS: ALT 61 U/L (4-49); AST 75 U/L (17-59); African American GFR (CKD) >90 (>60 ml/min/1.73 sqM); Albumin 4.3 g/dL (3.5-5.0); Alkaline Phosphatase 86 U/L (38-126); Anion Gap 8 mmol/L; Blood Urea Nitrogen 12 mg/dL (9-20); Calcium 9.1 mg/dL (8.4-10.2); Carbon Dioxide 26 mmol/L (22-30); Chloride 103 mmol/L (98-107); Glucose 126 mg/dL (74-99); Non-African American GFR(CKD) >90 (>60 ml/min/1.73 sqM); Potassium 4.5 mmol/L (3.5-5.1); Sodium 137 mmol/L (137-145); Total Bilirubin 0.8 mg/dL (0.2-1.3); Total Protein 6.6 g/dL (6.3-8.2)
[2021-05-25 17:46] LABS: Amylase 501 U/L (30-110)
[2021-05-25 17:48] LABS: Lipase 3869 U/L (23-300)
[2021-05-25] MEDS ORDERED: NALOXONE 0.4 MG/ML 1 ML VIAL IV PRN (18:03)
[2021-05-25] MEDS ORDERED: ONDANSETRON 4 MG/2 ML VIAL IVP PRN (18:03)
[2021-05-25] MEDS ORDERED: HYDROmorphone 0.5 MG/0.5 ML SYRINGE IVP PRN (18:03)
[2021-05-25] MEDS: SODIUM CHLORIDE 0.9% 1,000 ML IV SCH (18:37)
[2021-05-25] MEDS ORDERED: HYDROcodone/APAP 5-325MG 1 EACH TAB PO PRN (19:07)
[2021-05-25] MEDS ORDERED: ALPRAZolam 0.25 MG TAB PO PRN (19:07)
--- NOTE | 2021-05-25 19:25 | XR ---
EXAMINATION TYPE: XR chest 1V portable DATE OF EXAM: 05/25/2021 COMPARISON: 08/13/2019 HISTORY: Short of breath TECHNIQUE: FINDINGS: There is no heart failure nor confluent pneumonic infiltrate. There is no evidence of pleur al effusion. There are no hilar masses. Bony thorax is intact. There is relative poor inspiration. He art size is normal. IMPRESSION: Poor inspiration that is improved compared to last exam. No heart failure.
--- NOTE | 2021-05-25 20:08 | HP ---
HISTORY AND PHYSICAL DATE OF SERVICE: 05/25/2021. CHIEF COMPLAINT: Abdominal pain. HISTORY OF PRESENT ILLNESS: This 55-year-old gentleman with a past medical history of previous pancreatitis at least 4 times previously, chronic low back pain, cholecystectomy, hernia repair, being followed by Dr. Davey in the outpatient setting, started to have abdominal pain which was felt in the upper part and lower part. The patient has some nausea and vomiting, also. The patient because of severe pain came to [facility] Emergency Room and was admitted for evaluation and treatment. White count is elevated 12.8 and AST and ALT also elevated. Amylase is [address] scan of the abdomen and pelvis showed evidence of pancreatitis with some fatty stranding. Patient also had hepatic steatosis as well as hepatomegaly as well. Of note, during the previous episode of pancreatitis, biliary sludge was noted and biliary pancreatitis suspected and the patient underwent cholecystectomy. The patient also takes about 6 drinks of alcohol per week and the patient reports that he gets pancreatitis episodes almost every 6 months and the patient stopped alcohol without any noticeable difference at this time. Lactic acid is only 0.8. There is no history of fevers, rigors, headache or loss of consciousness. PAST MEDICAL HISTORY: History of GERD, history of chronic low back pain, history of cholecystectomy, history of nicotine dependence. MEDICATIONS: Medications prior to admission include hydrocodone and Motrin. ALLERGIES: None. FAMILY HISTORY: No history of heart disease or strokes in the family. During the previous evaluation the patient was also found to have sclerotic bone lesions in the CT scan, however the nuclear medicine scan did not show any acute abnormality. SOCIAL HISTORY: History of smoking. Occasional alcohol as mentioned earlier. REVIEW OF SYSTEMS: ENT: No diminished vision. CARDIOVASCULAR: No angina. RESPIRATORY: No cough. GI: As mentioned. : No dysuria. NERVOUS SYSTEM: No numbness or weakness. ALLERGY: No asthma or hayfever. MUSCULOSKELETAL: As mentioned earlier. HEMATOLOGY/ONCOLOGY: No history anemia. ENDOCRINE: No history of diabetes or hypothyroidism. CONSTITUTIONAL: As mentioned earlier. DERMATOLOGY: Negative. RHEUMATOLOGY: Negative. PSYCHIATRY: As mentioned earlier. PHYSICAL EXAM: Patient is alert, oriented x3. Pulse is 77, blood pressure 120/69, respiration 18 temperature 98.6, pulse ox 94% on room air. HEENT: Conjunctivae normal. NECK: No JVD. RESPIRATORY: Breath sounds diminished in the bases. Scattered rhonchi. ABDOMEN: Soft. Mild diffuse tenderness present. No guarding. No rigidity. No mass palpable. LEGS: No edema no swelling. NERVOUS SYSTEM: As mentioned earlier. Moves all 4 limbs. No focal motor or sensory deficit. LYMPHATICS: No lymph nodes palpable in the neck, axillae or groin. SKIN: No rash. JOINTS: No active deforming arthropathy. LABS: WBC 12.8, hemoglobin is 18.4, sodium 137, potassium 4.5. Amylase and lipase and other labs are noted. ASSESSMENT: 1. Acute severe pancreatitis with severe abdominal pain. 2. Previous history of multiple episodes of pancreatitis x4. 3. Increased WBC. 4. Increased hemoglobin. 5. Elevated AST and ALT mild hepatitis. 6. Elevated amylase and lipase. 7. History of cholecystectomy and possibly biliary pancreatitis. 8. History of gastroesophageal reflux disease. 9. Chronic low back pain and back pain. 10.History of hernia repair. 11.History of nicotine dependence. 12.Obesity with body mass index 40.4. 13.FULL CODE. RECOMMENDATIONS AND DISCUSSION: This 55-year-old gentleman who presented with multiple complex medical issues, we will monitor the patient closely continue the current management and symptomatic treatment. At this time I would recommend repeat labs and n.p.o. except medications. Gastroenterology evaluation. If LFTs are persistently elevated the patient might benefit from an ERCP. MRI also might be consultation because of recurrent nature of the pancreatitis. Overall prognosis extremely guarded because of multiple complex medical issues. The patient is actually avoiding fatty food at this time according to him. IgG subclass estimation, lipid fractions as well as triglyceride level estimation. Prognosis guarded because of multiple complex medical issues. See orders for details. MMODL / IJN: [id number] /
[2021-05-25] MEDS: HYDROmorphone 1 MG/ML 1 ML SYRINGE IVP PRN ×2 (20:15→22:58)
[2021-05-25] MEDS: PANTOPRAZOLE 40 MG/10 ML VIAL IVP SCH (20:15)
[2021-05-25] MEDS: HEPARIN SODIUM,PORCINE/PF 5,000 UNIT/0.5 ML SYRINGE SQ SCH (20:15)
[2021-05-25] MEDS: IBUPROFEN 400 MG TAB PO PRN (22:56)
[2021-05-26] MEDS: HYDROmorphone 1 MG/ML 1 ML SYRINGE IVP PRN ×6 (02:15→22:33)
[2021-05-26] MEDS: IBUPROFEN 400 MG TAB PO PRN (05:07)
[2021-05-26] MEDS: NICOTINE 14MG/24HR PATCH TRANSDERM SCH (08:20)
[2021-05-26] MEDS: MULTIVITAMINS, THERA 1 EACH TAB PO SCH (08:20)
[2021-05-26] MEDS: PANTOPRAZOLE 40 MG/10 ML VIAL IVP SCH (08:21)
[2021-05-26] MEDS: SODIUM CHLORIDE 0.9% 1,000 ML IV SCH ×2 (08:21→20:02)
[2021-05-26] MEDS: HEPARIN SODIUM,PORCINE/PF 5,000 UNIT/0.5 ML SYRINGE SQ SCH ×2 (08:21→20:02)
[2021-05-26] MEDS ORDERED: PANTOPRAZOLE 40 MG/10 ML VIAL IV SCH (09:00)
[2021-05-26 09:07] LABS: Basophils # (A) 0.04 X 10*3/uL (0.00-0.10); Basophils % (A) 0.3 %; Eosinophils # (A) 0.21 X 10*3/uL (0.04-0.35); Eosinophils % (A) 1.8 %; HCT 48.3 % (39.6-50.0); HGB 16.3 g/dL (13.0-17.0); Lymphocytes % (A) 18.1 %; MCH 32.4 pg (27.0-32.0); MCHC 33.7 g/dL (32.0-37.0); Mean Platelet Volume 10.2 fL (9.5-12.2); Monocytes % (A) 8.6 %; Neutrophils % (A) 70.8 %; Platelet Count 198 X 10*3/uL (140-440); RBC 5.03 X 10*6/uL (4.40-5.60); RDW 13.2 % (11.5-14.5)
[2021-05-26 09:32] LABS: INR 0.94 (0.90-1.11); Prothrombin Time 10.3 sec (9.9-11.9)
[2021-05-26 10:14] LABS: African American GFR (CKD) 122.3 (60.0-200.0); Albumin 4.3 g/dL (3.80-4.90); Albumin/Globulin Ratio 2.15 (1.60-3.17); Anion Gap 9.5 mmol/L (4.00-12.00); BUN/Creat Ratio 17.14 Ratio (12.00-20.00); Calcium 8.7 mg/dL (8.7-10.3); Carbon Dioxide 22.5 mmol/L (21.6-31.8); Chol/HDL Ratio 2.92; LDL Cholesterol,Calculated 75.2 mg/dL (0.0-131.0); Non-African American GFR(CKD) 105.5 (60.0-200.0); Potassium 4.5 mmol/L (3.5-5.5); Total Bilirubin 0.7 mg/dL (0.2-1.2); Total Protein 6.3 g/dL (6.2-8.2); VLDL Calculation 39.8 mg/dL (5.00-40.00)
--- NOTE | 2021-05-26 13:01 | P.CONS ---
History of Present Illness - Reason for Consult Consult date: 05/26/21 Pancreatitis Requesting physician: Yamile Holden - Chief Complaint Abdominal pain - History of Present Illness This a 55-year-old white male who presented to the emergency department with complaints of abdominal pain associated with nausea and vomiting. The patient has a past medical history significant of alcoholic pancreatitis with multiple recurrences. States he generally has a recurrence every 5 months. His last hospitalization was in December of this year and he underwent a laparoscopic cholecystectomy for cholecystitis, no gallstones were reported. Initial labs WBC 12.8, hemoglobin 18.4, hematocrit 52.6, platelet count 188,000, total bilirubin 0.8, alkaline phosphatase 86, AST 75, ALT 61, amylase 501, lipase 3869. Lipid panel is ordered and pending. The patient admits that he continues to drink at least 6 drinks a week and continues to smoke cigarettes. States the abdominal pain has improved, he did have some vomiting yesterday after having some Jell-O. He is trying popsicles and ice chips this morning. CT of the abdomen shows mild fullness of the pancreas and minimal stranding. Correlate for very mild pancreatitis with amylase and lipase. Fatty liver and hepatomegaly. Review of Systems REVIEW OF SYSTEMS: CARDIOPULMONARY: No chest pain or shortness of breath. Gastrointestinal: Right upper quadrant and epigastric pain. Nausea and vomiting. No hematemesis, coffee-ground emesis. No rectal bleeding, or melena. GENITOURINARY: No dysuria or hematuria. MUSCULOSKELETAL: Reports normal range of motion., Joint pain. SKIN: No rashes. No jaundice. ENDOCRINE: No chills, fevers. No excessive weight gain or loss. No polydipsia or polyuria. PSYCHIATRIC: Unremarkable. NEUROLOGY: No change in mental status. Denies dizziness, headache. ENT: Vision unremarkable. CONSTITUTIONAL: No recent weight loss. No fever, chills, night sweats. Past Medical History Past Medical History: GERD/Reflux Additional Past Medical History / Comment(s): CHRONIC LOWER BACK PAIN, pancreatitis History of Any Multi-Drug Resistant Organisms: None Reported Past Surgical History: Cholecystectomy, Hernia Repair Past Anesthesia/Blood Transfusion Reactions: No Reported Reaction Past Psychological History: No Psychological Hx Reported Smoking Status: Current every day smoker Past Alcohol Use History: Occasional Additional Past Alcohol Use History / Comment(s): SMOKED 38 YEARS, 1 PPD Past Drug Use History: None Reported - Past Family History Mother Family Medical History: No Reported History Father Family Medical History: Hypertension Medications and Allergies Home Medications Medication Instructions Recorded Confirmed Type HYDROcodone/APAP 10-325MG [[place] 1 - 2 tab PO DAILY PRN 06/22/20 05/25/21 History 10-325] Ibuprofen [Motrin] 800 - 1,600 mg PO DAILY PRN 06/22/20 05/25/21 History Allergies Allergy/AdvReac Type Severity Reaction Status Date / Time No Known Allergies Allergy Verified 05/25/21 16:42 Physical Exam Vitals: Vital Signs Temp Pulse Pulse Resp BP BP Pulse Ox 05/26/21 07:42 98.1 F 72 16 126/79 94 L 05/26/21 01:52 97.9 F 81 20 155/81 93 L 05/25/21 22:31 97.9 F 74 18 158/93 95 05/25/21 21:56 98.6 F 77 18 160/94 94 L 05/25/21 20:20 77 18 160/94 94 L 05/25/21 18:37 77 18 163/99 95 05/25/21 17:42 70 18 174/100 95 05/25/21 14:29 83 18 172/103 96 05/25/21 13:57 81 18 157/97 96 05/25/21 13:39 98.6 F 86 20 181/99 95 Intake and Output 05/25/21 05/26/21 05/26/21 22:59 06:59 14:59 Other: Voiding Method Toilet # Voids 2 Weight 113.398 kg General appearance: The patient is alert, oriented, appears in no acute distress. HET: Head is normocephalic and atraumatic. Conjunctiva pink. Sclera anicteric. Neck: Supple without lymphadenopathy. Trachea midline. Heart: S1 S2. Regular rate and rhythm. Lungs: Clear to auscultation. Abdomen: Soft, right upper quadrant and epigastric tenderness, nondistended with bowel sounds. No guarding or rigidity. Skin: No rashes. No jaundice. Extremities: Normal skin color and turgor. No pedal edema. Neurological: No focal deficits. Alert and oriented 3.. Results CBC & Chem 7: 05/26/21 05:02 05/26/21 04:44 Labs: Abnormal Lab Results - Last 24 Hours (Table) 05/25/21 05/25/21 05/25/21 Range/Units 14:17 14:17 16:59 WBC 12.8 H (3.8-10.6) k/uL Hgb 18.4 H (13.0-17.5) gm/dL Neutrophils # 9.9 H (1.3-7.7) k/uL Creatinine 0.65 L (0.66-1.25) mg/dL Glucose 126 H (74-99) mg/dL AST 75 H (17-59) U/L ALT 61 H (4-49) U/L Amylase 501 H* (30-110) U/L Lipase 3869 H (23-300) U/L Urine Protein 1+ H (Negative) Urine Ketones 2+ H (Negative) Amorphous Sediment Rare H (None) /hpf Urine Mucus Few H (None) /hpf CT scan - abdomen: report reviewed (Mild fullness of the pancreas and minimal stranding. Correlate for. Mild pancreatitis with amylase and lipase. Fatty liver and hepatomegaly.) Assessment and Plan (1) Acute pancreatitis Narrative/Plan: 55-year-old male who presented to the emergency department with complaints of abdominal pain associated with nausea and vomiting which she states he associat ed to his pancreatitis. Patient has history of chronic alcoholic pancreatitis with multiple recurrences. His last hospitalization was in December of this year and he underwent a laparoscopic [place] cystectomy for acute cholecystitis, no gallstones were noted. Abdominal pain began on Tuesday with associated nausea and vomiting. CT of the abdomen and pelvis shows mild fullness of the pancreas and minimal stranding, along with elevated amylase and lipase which is consistent with acute pancreatitis. Patient continues to drink alcohol and smoke cigarettes. Current Visit: Yes Status: Acute Code(s): K85.90 - ACUTE PANCREATITIS WITHOUT NECROSIS OR INFECTION, UNSP SNOMED Code(s): 955223628 (2) Abdominal pain Current Visit: No Status: Acute Code(s): R10.9 - UNSPECIFIED ABDOMINAL PAIN SNOMED Code(s): 00498312 (3) Pancreatitis, chronic Current Visit: No Status: Acute Code(s): K86.1 - OTHER CHRONIC PANCREATITIS SNOMED Code(s): 404785482 Plan: 1. Clear liquid diet 2. Repeat lipase 3. Increase IV hydration 150 ml/hr 4. CT of the abdomen and pelvis reviewed 5. Triglyceride ordered 6. Continue symptomatic and supportive care 7. Continue pain medication per primary medicine team 8. Again recommended to the patient for complete alcohol cessation and tobacco cessation Thank you for this consultation, we will continue to follow Dr. Michael Mcdermott I agree with the dictator's note, documented as a scribe by Noemí Rubi.
[2021-05-26] MEDS: PANTOPRAZOLE 40 MG TABLET PO SCH (16:05)
--- NOTE | 2021-05-26 18:17 | PN ---
PROGRESS NOTE DATE OF SERVICE: 05/26/2021 INTERVAL HISTORY: This 55-year-old gentleman who was admitted with acute pancreatitis. Abdominal pain is being closely monitored. No chest pain. No palpitations. No fever. PHYSICAL EXAMINATION: Alert and oriented. Pulse 80, blood pressure 153/92, respirations 17, temperature 98.8, pulse ox 97% on room air. CARDIOVASCULAR: S1, S2 muffled. RESPIRATORY SYSTEM: Breath sounds diminished at the bases, no rhonchi, no crackles. ABDOMEN: Soft, mild diffuse discomfort. No mass palpable. LEGS: Are no edema. No swelling. LABS: WBC 11.6 and amylase is 265, lipase is 535. ASSESSMENT: 1. Acute severe pancreatitis with severe abdominal pain. 2. Previous history of multiple episodes of pancreatitis x4. 3. Increased WBC. 4. Increased hemoglobin. 5. Elevated AST, ALT and mild hepatitis. 6. Elevated amylase, lipase. 7. History of cholecystectomy with possible biliary pancreatitis previously. 8. History of GERD. 9. Chronic low back pain. 10.History of hernia repair. 11.History of nicotine dependence. 12.History of obesity with body mass index of 40.4. 13.FULL CODE. RECOMMENDATIONS AND DISCUSSION: Recommend to continue current medications, symptomatic treatment. Otherwise at this time I recommend repeat labs. IgG subclass has been requested. Gastroenterology consultation. Advance diet slowly. Guarded prognosis because of multiple complex medical issues. Further recommendations to follow. MMODL / IJN: [id number] /
[2021-05-27] MEDS: SODIUM CHLORIDE 0.9% 1,000 ML IV SCH ×2 (03:50→07:24)
[2021-05-27] MEDS: HYDROmorphone 1 MG/ML 1 ML SYRINGE IVP PRN ×2 (03:53→07:27)
[2021-05-27 06:40] LABS: Basophils % (A) 0 %; Eosinophils # (A) 0.5 k/uL (0-0.7); Eosinophils % (A) 6 %; HCT 46.5 % (39.0-53.0); Lymphocytes # (A) 2.1 k/uL (1.0-4.8); Lymphocytes % (A) 25 %; MCH 32.4 pg (25.0-35.0); MCHC 34.4 g/dL (31.0-37.0); MCV 94.1 fL (80.0-100.0); Mean Platelet Volume 7.6; Monocytes # (A) 0.6 k/uL (0-1.0); Monocytes % (A) 8 %; Neutrophils # (A) 5.1 k/uL (1.3-7.7); Neutrophils % (A) 61 %; Platelet Count 174 k/uL (150-450); RBC 4.94 m/uL (4.30-5.90); RDW 12.9 % (11.5-15.5); WBC 8.3 k/uL (3.8-10.6)
[2021-05-27 07:08] LABS: African American GFR (CKD) 130.3 (60.0-200.0); Albumin 4.2 g/dL (3.80-4.90); Albumin/Globulin Ratio 2.21 (1.60-3.17); Anion Gap 14.3 mmol/L (4.00-12.00); BUN/Creat Ratio 16.67 Ratio (12.00-20.00); Calcium 8.6 mg/dL (8.7-10.3); Carbon Dioxide 16.7 mmol/L (21.6-31.8); Globulin 1.9 g/dL (1.6-3.3); Non-African American GFR(CKD) 112.4 (60.0-200.0); Potassium 4.6 mmol/L (3.5-5.5); Total Bilirubin 0.7 mg/dL (0.2-1.2); Total Protein 6.1 g/dL (6.2-8.2)
[2021-05-27] MEDS: NICOTINE 14MG/24HR PATCH TRANSDERM SCH (07:10)
[2021-05-27] MEDS: HEPARIN SODIUM,PORCINE/PF 5,000 UNIT/0.5 ML SYRINGE SQ SCH (07:23)
[2021-05-27] MEDS: MULTIVITAMINS, THERA 1 EACH TAB PO SCH (07:23)
[2021-05-27] MEDS: PANTOPRAZOLE 40 MG TABLET PO SCH (07:23)
[2021-05-27 07:47] VITALS: BP 134/83; PULSE 70; RESP 16; TEMP 98.1
[2021-05-27 10:35] LABS: Amylase 47 U/L (30-110); Lipase 127 U/L (23-300)
--- NOTE | 2021-05-27 11:07 | P.PN ---
Subjective Progress Note Date: 05/27/21 Principal diagnosis: Pancreatitis 55-year-old male with history of recurrent alcoholic pancreatitis who presented to the emergency department 2 days ago with complaints of abdominal pain associated with nausea and vomiting. Today he states his pain has improved, he is been tolerating his clear liquid diet and would like to advance his diet and go home. He is denying any nausea or vomiting. He has been afebrile. And chronic enzymes have trended down, lipase 127. Objective - Vital Signs Vital signs: Vital Signs Temp 98.1 F 05/27/21 07:45 Pulse 70 05/27/21 07:45 Resp 16 05/27/21 07:45 BP 134/83 05/27/21 07:45 Pulse Ox 95 05/27/21 07:45 Intake & Output 05/26/21 05/27/21 05/27/21 18:59 06:59 18:59 Intake Total 520 200 Balance 520 200 Intake: Oral 520 200 Other: Voiding Method Toilet # Voids 4 3 - Exam General appearance: The patient is alert, oriented, appears in no acute distress. HET: Head is normocephalic and atraumatic. Conjunctiva pink. Sclera anicteric. Neck: Supple without lymphadenopathy. Abdomen: Soft, nontender, nondistended with bowel sounds. No guarding or rigidity. Extremities: Normal skin color and turgor. No pedal edema Skin: No rashes, no jaundice Neurological: No focal deficits. Alert and oriented 3. - Labs CBC & Chem 7: 05/27/21 06:12 05/26/21 16:55 Labs: Abnormal Lab Results - Last 24 Hours (Table) 05/26/21 Range/Units 16:55 Sodium 134 L (135-145) mmol/L Carbon Dioxide 16.7 L (21.6-31.8) mmol/L Anion Gap 14.30 H (4.00-12.00) mmol/L Glucose 114 H (70-110) mg/dL Calcium 8.6 L (8.7-10.3) mg/dL AST 41 H (14-35) U/L ALT 51 H (10-49) U/L Total Protein 6.1 L (6.2-8.2) g/dL Amylase 136 H (23-121) U/L Lipase 322 H (14-60) U/L Assessment and Plan (1) Acute pancreatitis Narrative/Plan: 55-year-old male who presented to the emergency department with complaints of abdominal pain associated with nausea and vomiting which she states he associated to his pancreatitis. Patient has history of chronic alcoholic pancreatitis with multiple recurrences. His last hospitalization was in December of this year and he underwent a laparoscopic Malena cystectomy for acute cholecystitis, no gallstones were noted. Abdominal pain began on Tuesday with associated nausea and vomiting. CT of the abdomen and pelvis shows mild fullness of the pancreas and minimal stranding, along with elevated amylase and lipase which is consistent with acute pancreatitis. Patient continues to drink alcohol and smoke cigarettes. Current Visit: Yes Status: Acute Code(s): K85.90 - ACUTE PANCREATITIS WITHOUT NECROSIS OR INFECTION, UNSP SNOMED Code(s): 312948431 (2) Abdominal pain Current Visit: No Status: Acute Code(s): R10.9 - UNSPECIFIED ABDOMINAL PAIN SNOMED Code(s): 30247635 (3) Pancreatitis, chronic Current Visit: No Status: Acute Code(s): K86.1 - OTHER CHRONIC PANCREATITIS SNOMED Code(s): 959304773 Plan: 1. Advance to low-fat diet 2. Continue symptomatic and supportive care 3. Continue pain medication per primary medicine team 4. Again recommended to the patient for complete alcohol cessation and tobacco cessation Thank you for this consultation, patient is cleared from gastroenterology if he tolerates his lunch for discharge today. Dr. Michael Mcdermott I agree with the dictator's note, documented as a scribe by Noemí Rubi.
[2021-05-27 12:04] LABS: IgG Subclass 3 20.4 mg/dL (11.0-85.0); IgG Subclass 4 41.3 mg/dL (3.0-175.0)
--- NOTE | 2021-05-27 14:46 | P.DS ---
Providers Date of admission: 05/25/21 18:12 Expected date of discharge: 05/27/21 Attending physician: Yamile Holden Consults: 05/25/21 19:12 Consult Physician Routine Consulting Provider: Penny Mcdermott Consult Reason/Comments: recurrent pancreatitis Do you want consulting provider notified?: Yes Primary care physician[facility]: Final diagnosis Acute severe pancreatitis with severe abdominal pain Previous history of multiple episodes of pancreatitis 4 Increased white blood count increased hemoglobin Elevated AST, ALT, and mild hepatitis Elevated amylase, lipase history of cholecystectomy with possible biliary pancreatitis previously History of GERD Chronic low back pain History of hernia repair History of nicotine dependence History of obesity with a body mass index of 40.4 Full code Discharge disposition Patient is being discharged in a stable condition with guarded prognosis to home. Patient will follow-up with Dr. Davey in the outpatient setting upon discharge. Patient is to also follow-up with GI in the outpatient setting. Prescription provided for recommended repeat labs to monitor liver function testings. Patient instructed to follow a low-fat diet and slowly advance as tolerated. Patient will continue on Protonix twice daily in the outpatient setting. Total time taken is greater than 35 minutes. Hospital course This is a 55-year-old male who was recently admitted with to pancreatitis and was being closely monitored. GI evaluated the patient recommending outpatient follow-up as needed. Patient was educated and instructed to continue to avoid alcohol intake along with continuing to quit and avoid tobacco use. Patient tolerating clear liquid diet and was advanced to low fiber and will continue in the outpatient setting and slowly advance as tolerated. Amylase and lipase within normal limits today. Liver functions trending down and prescription provided for outpatient follow-up to monitor closely. Patient also instructed to follow-up with primary care provider Dr. Davey upon discharge. Patient states his abdominal discomfort has improved and is requesting to go home today. Currently no reports of chest pain, shortness of breath, or palpitations. Patient is afebrile. No reports of nausea or vomiting and patient is tolerating diet. Patient will be discharged home today. On exam vital signs are stable. Cardio S1, S2 are muffled. Respiratory system shows diminished breath sounds at the bases with no wheezing or rhonchi noted. Abdomen is soft and nontender. Nervous system shows no focal deficits. Please refer to medication reconciliation sheet for a list of medications. Patient Condition at Discharge: Fair Plan - Discharge Summary Discharge Rx Participant: No New Discharge Prescriptions: New Multivitamins, Thera [Multivitamin (formulary)] 1 each PO DAILY@1200 30 Days #30 tab Pantoprazole [Protonix] 40 mg PO AC-BID 30 Days #60 tablet. Continue Ibuprofen [Motrin] 800 - 1,600 mg PO DAILY PRN PRN Reason: Pain HYDROcodone/APAP 10-325MG [[place] 10-325] 1 - 2 tab PO DAILY PRN PRN Reason: Pain Discharge Medication List HYDROcodone/APAP 10-325MG [[place] 10-325] 1 - 2 tab PO DAILY PRN 06/22/20 [History] Ibuprofen [Motrin] 800 - 1,600 mg PO DAILY PRN 06/22/20 [History] Multivitamins, Thera [Multivitamin (formulary)] 1 each PO DAILY@1200 30 Days #30 tab 05/27/21 [Rx] Pantoprazole [Protonix] 40 mg PO AC-BID 30 Days #60 tablet. 05/27/21 [Rx] Follow up Appointment(s)/Referral(s): Vanesa Canales PAC [REFERRING] - As Needed Alyce Davey MD [Primary Care Provider] - 1-2 days Ambulatory/Diagnostic Orders: Amylase [LAB.AMB] Time Frame: 3 Days, Location: None Selected Patient Instructions/Handouts: Pancreatitis (ED), Pancreatitis (DC) Activity/Diet/Wound Care/Special Instructions: activity as tolerated low fat diet Follow-up with GI outpatient follow up with primary care provider upon discharge Continue medications as prescribed Avoid alcohol and tobacco use Discharge Disposition: HOME SELF-CARE
== END 2021-05-27 13:14 | disposition home or self-care (01) | DRG 439 ==
LOC: EC 13:25 → 5NMEDONC 18:12 → 6NMEDSUR 19:47
PROVIDERS: ADMIT Hospitalist; ATTEND Hospitalist
DX: K85.20 Alcohol induced acute pancreatitis without necrosis or infection (principal); Z68.41 Body mass index [BMI] 40.0-44.9, adult; K86.0 Alcohol-induced chronic pancreatitis; K76.0 Fatty (change of) liver, not elsewhere classified; K75.9 Inflammatory liver disease, unspecified; R11.2 Nausea with vomiting, unspecified; E66.9 Obesity, unspecified; F17.210 Nicotine dependence, cigarettes, uncomplicated; K21.9 Gastro-esophageal reflux disease without esophagitis; G89.29 Other chronic pain; Z87.19 Personal history of other diseases of the digestive system; Z90.49 Acquired absence of other specified parts of digestive tract
CPT/HCPCS: 36415; 71045; 74177; 80053; 80061; 81001; 82150; 82787; 83605; 83690; 85025; 85610; 86038; 86431; 93005; 96361; 96374; 96375; 96376; 99285

== ENCOUNTER 2021-10-06 09:34 | Inpatient (IN) | payer BC ==
[2021-10-06] MEDS ORDERED: HYDROmorphone 0.5 MG/0.5 ML SYRINGE IVP STA ×2 (12:05→15:16)
[2021-10-06] MEDS ORDERED: SODIUM CHLORIDE 0.9% 2,000 ML IV STA (12:05)
[2021-10-06] MEDS ORDERED: ONDANSETRON 4 MG/2 ML VIAL IVP STA (12:05)
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
[2021-10-06 13:42] LABS: Appearance,Urine Clear (Clear); Bilirubin,Urine Negative (Negative); Blood,Urine Negative (Negative); Color,Urine Yellow; Glucose,Urine (UA) Negative (Negative); Ketones,Urine Negative (Negative); Leukocyte Esterase,Urine Negative (Negative); Nitrite,Urine Negative (Negative); Protein,Urine Negative (Negative); Specific Gravity,Urine 1.016 (1.001-1.035); Urobilinogen,Urine <2.0 mg/dL (<2.0)
[2021-10-06 13:43] LABS: Basophils # (A) 0.1 k/uL (0-0.2); Basophils % (A) 1 %; Eosinophils # (A) 0.5 k/uL (0-0.7); Eosinophils % (A) 4 %; HCT 52.9 % (39.0-53.0); HGB 17.6 gm/dL (13.0-17.5); Lymphocytes # (A) 2.4 k/uL (1.0-4.8); Lymphocytes % (A) 20 %; MCH 32.3 pg (25.0-35.0); MCHC 33.3 g/dL (31.0-37.0); MCV 96.9 fL (80.0-100.0); Mean Platelet Volume 7.6; Monocytes # (A) 0.7 k/uL (0-1.0); Monocytes % (A) 6 %; Neutrophils # (A) 8.4 k/uL (1.3-7.7); Neutrophils % (A) 69 %; Platelet Count 185 k/uL (150-450); RBC 5.46 m/uL (4.30-5.90); RDW 12.9 % (11.5-15.5); WBC 12.2 k/uL (3.8-10.6)
[2021-10-06 14:06] LABS: ALT 83 U/L (4-49); AST 58 U/L (17-59); African American GFR (CKD) >90 (>60 ml/min/1.73 sqM); Albumin 4.5 g/dL (3.5-5.0); Alcohol <10 mg/dL; Alkaline Phosphatase 82 U/L (38-126); Anion Gap 6 mmol/L; Blood Urea Nitrogen 13 mg/dL (9-20); Calcium 9.7 mg/dL (8.4-10.2); Carbon Dioxide 29 mmol/L (22-30); Chloride 103 mmol/L (98-107); Glucose 148 mg/dL (74-99); Non-African American GFR(CKD) >90 (>60 ml/min/1.73 sqM); Potassium 4.6 mmol/L (3.5-5.1); Sodium 138 mmol/L (137-145); Total Bilirubin 0.8 mg/dL (0.2-1.3); Total Protein 7.5 g/dL (6.3-8.2)
[2021-10-06 14:16] LABS: Amylase 874 U/L (30-110)
[2021-10-06 15:40] LABS: Lipase 9696 U/L (23-300)
[2021-10-06] MEDS ORDERED: NALOXONE 0.4 MG/ML 1 ML VIAL IV PRN (16:21)
[2021-10-06] MEDS ORDERED: ONDANSETRON 4 MG/2 ML VIAL IVP PRN (16:21)
[2021-10-06] MEDS ORDERED: MORPHINE SULFATE 4 MG/ML SYRINGE IV PRN (16:21)
[2021-10-06] MEDS ORDERED: IBUPROFEN 400 MG TAB PO PRN (16:21)
[2021-10-06] MEDS: SODIUM CHLORIDE 0.9% 1,000 ML IV SCH (18:32)
[2021-10-06] MEDS ORDERED: IOPAMIDOL CONTRAST (ORAL USE) VIAL PO PRN (18:44)
[2021-10-06] MEDS ORDERED: ALPRAZolam 0.25 MG TAB PO PRN (18:45)
[2021-10-06] MEDS ORDERED: TEMAZEPAM 15 MG CAP PO PRN (18:45)
[2021-10-06] MEDS ORDERED: HYDROcodone/APAP 5-325MG 1 EACH TAB PO PRN (18:45)
[2021-10-06] MEDS ORDERED: ACETAMINOPHEN TAB 500 MG TAB PO PRN (18:45)
[2021-10-06] MEDS: HYDROmorphone 0.5 MG/0.5 ML SYRINGE IVP PRN ×2 (19:32→22:41)
[2021-10-06] MEDS: HEPARIN SODIUM,PORCINE/PF 5,000 UNIT/0.5 ML SYRINGE SQ SCH (20:11)
[2021-10-06] MEDS: PANTOPRAZOLE 40 MG/10 ML VIAL IVP SCH (20:11)
--- NOTE | 2021-10-06 20:23 | HP ---
HISTORY AND PHYSICAL DATE OF SERVICE: 10/06/2021 CHIEF COMPLAINT: Abdominal pain and pancreatitis. HISTORY OF PRESENT ILLNESS: This 56-year-old gentleman with a past medical history of multiple medical problems, including pancreatitis, possibly related to alcohol intake, also had a cholecystectomy because of suspected gallstones one time. The patient has not been drinking alcohol for the last 6 months, according to him. The patient is complaining of severe abdominal pain in the front of the abdomen, and the patient came to [facility] and was admitted for further evaluation and treatment. The patient felt like it is pancreatitis, and it happens every 5 months, according to him. Otherwise, there is no history of radiation or any pain elsewhere. There is no history of any fever, rigor or chills at this time. Amylase and lipase are elevated. Amylase was 874 and lipase was 9696. The patient is followed by Dr. Davey in the outpatient setting. PAST MEDICAL HISTORY: History of recurrent pancreatitis, history of GERD, history of low back pain, history of cholecystectomy. MEDICATIONS PRIOR TO ADMISSION: [place] p.r.n. ALLERGIES: NONE. FAMILY HISTORY: No history of heart disease or strokes in the family. SOCIAL HISTORY: History of smoking. No history of alcohol for the last 6 months, according to him. REVIEW OF SYSTEMS: ENT: No diminished hearing. No diminished vision. CARDIOVASCULAR SYSTEM: No angina, palpitations. RESPIRATORY SYSTEM: No cough, hemoptysis. GI: As mentioned earlier. : No dysuria. NERVOUS SYSTEM: No numbness, weakness. ALLERGY/IMMUNOLOGY: No asthma or hay fever. MUSCULOSKELETAL: As mentioned earlier. HEMATOLOGY/ONCOLOGY: No history of anemia. ENDOCRINE: No history of diabetes or hypothyroidism. CONSTITUTIONAL: As mentioned earlier. DERMATOLOGY: Negative. RHEUMATOLOGY: Negative. PSYCHIATRY: As mentioned earlier. PHYSICAL EXAMINATION: Patient is alert, oriented x3. Pulse is 65, blood pressure 158/93, respiration 18, temperature 97.4, pulse ox 97% on room air. HEENT: Conjunctivae normal. Oral mucosa moist. NECK: No jugular venous distention. No carotid bruit. No lymph node enlargement. CARDIOVASCULAR: S1, S2 muffled. RESPIRATION: Breath sounds diminished at the bases. No rhonchi. No crackles. ABDOMEN: Soft. Obese. Mild diffuse tenderness in the upper abdomen present. No guarding. No rigidity. No mass palpable. LEGS: No edema. No swelling. NERVOUS SYSTEM: Higher functions as mentioned earlier. Moves all 4 limbs. No focal motor or sensory deficit. LYMPHATICS: No lymph node palpable in neck, axillae or groin. SKIN: No ulcer, rash, bleeding. JOINTS: No active deforming arthropathy. LABS: WBC 12.2, hemoglobin is 17.6, sodium is 138, potassium 4.6. Glucose 148. Amylase and lipase noted. ASSESSMENT: 1. Acute severe pancreatitis with abdominal pain. 2. History of recurrent pancreatitis, possibly related to alcohol. 3. History of cholecystectomy. 4. Increased random blood sugar. 5. Increased white count. 6. Increased hemoglobin. 7. History of gastroesophageal reflux disease. 8. History of chronic low back pain. 9. History of cholecystectomy. 10.History of hernia repair. 11.History of continued ongoing nicotine dependence. 12.Obesity with body mass index of 40.4. 13.FULL CODE. RECOMMENDATIONS AND DISCUSSION: In this 56-year-old gentleman who presented with multiple complex medical issues, at this time I recommend to continue the current medications, continue with symptomatic treatment. Continue the Protonix. Repeat labs. Surgical evaluation. Prognosis guarded because of multiple complex medical issues. I would also recommend a CT scan of the abdomen and pelvis to complete the workup. A copy of this dictation is being forwarded to Dr. Davey, who is the primary physician. I have also recommended a tertiary care referral because of recurrent symptoms. Dr. Davey will be able to look into that and arrange a possible referral as an outpatient. Otherwise, resume the home medications. Prognosis guarded. Symptomatic treatment will be provided. Repeat labs will be ordered. Further recommendations to follow. MMODL / IJN: [id number] /
[2021-10-06] MEDS: NICOTINE 14MG/24HR PATCH TRANSDERM SCH (21:02)
--- NOTE | 2021-10-06 21:20 | CT ---
EXAMINATION TYPE: CT abdomen pelvis wo con DATE OF EXAM: 10/06/2021 COMPARISON: 05/25/2021 HISTORY: History of pancreatitis. Abdominal pain. CT DLP: 1525.4 mGycm Automated exposure control for dose reduction was used. Images obtained from the diaphragm to the floor the pelvis with oral contrast. Lung bases are clear. There is no pleural effusion. Heart size is normal. There is no pericardial eff usion. There is surgical clip apparently from cholecystectomy. The bile ducts are not dilated. Liver spleen stomach pancreas appear intact. There is no adrenal mass. Kidneys show normal size and contour. There is no hydronephrosis. There is no retroperitoneal adenopathy. Ureters are not dilated. Bladder distends smoothly. There is minimal p rostate calcification. There is no inguinal hernia. There is no free fluid in the pelvis. There are m ultiple sigmoid diverticula. There is no diverticulitis. Appendix appears normal. There is no mesenteric edema. There is no ascites or free air. There is no bowel obstruction. Lumbar vertebra have normal alignment. Posterior elements are intact. Bony pelvis is intact. Hip join ts are intact. IMPRESSION: Sigmoid diverticulosis without diverticulitis. Normal appendix. No acute abnormality of the abdomen p charity. No adverse change compared to old exam.
[2021-10-07] MEDS: SODIUM CHLORIDE 0.9% 1,000 ML IV SCH ×3 (01:54→17:51)
[2021-10-07] MEDS: HYDROmorphone 0.5 MG/0.5 ML SYRINGE IVP PRN ×6 (01:54→20:56)
[2021-10-07 04:54] LABS: Basophils % (A) 0 %; Eosinophils # (A) 0.2 k/uL (0-0.7); Eosinophils % (A) 3 %; HCT 49.4 % (39.0-53.0); HGB 16.1 gm/dL (13.0-17.5); Lymphocytes # (A) 1.5 k/uL (1.0-4.8); Lymphocytes % (A) 17 %; MCH 31.9 pg (25.0-35.0); MCHC 32.7 g/dL (31.0-37.0); MCV 97.6 fL (80.0-100.0); Mean Platelet Volume 7.8; Monocytes # (A) 0.5 k/uL (0-1.0); Monocytes % (A) 6 %; Neutrophils # (A) 6.4 k/uL (1.3-7.7); Neutrophils % (A) 73 %; Platelet Count 174 k/uL (150-450); RBC 5.06 m/uL (4.30-5.90); RDW 12.9 % (11.5-15.5); WBC 8.8 k/uL (3.8-10.6)
[2021-10-07 05:12] LABS: ALT 153 U/L (4-49); AST 140 U/L (17-59); African American GFR (CKD) >90 (>60 ml/min/1.73 sqM); Albumin 3.9 g/dL (3.5-5.0); Alkaline Phosphatase 81 U/L (38-126); Anion Gap 4 mmol/L; Blood Urea Nitrogen 13 mg/dL (9-20); Calcium 8.5 mg/dL (8.4-10.2); Carbon Dioxide 25 mmol/L (22-30); Chloride 104 mmol/L (98-107); Glucose 131 mg/dL (74-99); Non-African American GFR(CKD) >90 (>60 ml/min/1.73 sqM); Potassium 4.4 mmol/L (3.5-5.1); Sodium 133 mmol/L (137-145); Total Protein 6.4 g/dL (6.3-8.2)
[2021-10-07 05:30] LABS: Amylase 538 U/L (30-110)
[2021-10-07 05:35] LABS: Lipase 4773 U/L (23-300)
[2021-10-07] MEDS: NICOTINE 14MG/24HR PATCH TRANSDERM SCH (07:24)
[2021-10-07] MEDS: PANTOPRAZOLE 40 MG/10 ML VIAL IVP SCH ×2 (07:24→20:02)
[2021-10-07] MEDS: HEPARIN SODIUM,PORCINE/PF 5,000 UNIT/0.5 ML SYRINGE SQ SCH ×2 (07:24→20:02)
--- NOTE | 2021-10-07 11:00 | P.GSCN ---
History of Present Illness Consult date: 10/07/21 Reason for Consult: Pancreatitis History of present illness: This is a 56-year-old male who was admitted through the emergency room with complaints of epigastric abdominal pain. Patient's workup found have evidence of acute pancreatitis. Patient has had pancreatitis in the past. He has a history of alcohol abuse. Patient denies drinking anything currently. Past Medical History Past Medical History: GERD/Reflux Additional Past Medical History / Comment(s): CHRONIC LOWER BACK PAIN, pancreatitis History of Any Multi-Drug Resistant Organisms: None Reported Past Surgical History: Cholecystectomy, Hernia Repair Past Anesthesia/Blood Transfusion Reactions: No Reported Reaction Past Psychological History: No Psychological Hx Reported Smoking Status: Current every day smoker Past Alcohol Use History: Occasional Past Drug Use History: None Reported - Past Family History Mother Family Medical History: No Reported History Father Family Medical History: Hypertension Medications and Allergies Home Medications Medication Instructions Recorded Confirmed Type HYDROcodone/APAP 10-325MG [[place] 0.5 tab PO BID PRN 06/22/20 10/06/21 History 10-325] Allergies Allergy/AdvReac Type Severity Reaction Status Date / Time No Known Allergies Allergy Verified 10/06/21 13:02 Surgical - Exam Vital Signs Temp Pulse Resp BP Pulse Ox 97.4 F L 65 18 144/95 96 10/06/21 09:39 10/06/21 09:39 10/06/21 09:39 10/06/21 09:39 10/06/21 09:39 - General well developed, moderate distress - Eyes PERRL - ENT normal pinna - Neck no masses - Respiratory normal expansion - Cardiovascular Rhythm: regular - Abdomen Epigastric pain, no rebound or guarding Abdomen: soft Results - Labs 10/07/21 04:10 10/07/21 04:10 Abnormal Lab Results - Last 24 Hours (Table) 10/06/21 10/06/21 10/07/21 Range/Units 13:35 13:35 04:10 WBC 12.2 H (3.8-10.6) k/uL Hgb 17.6 H (13.0-17.5) gm/dL Neutrophils # 8.4 H (1.3-7.7) k/uL Sodium 133 L (137-145) mmol/L Creatinine 0.61 L (0.66-1.25) mg/dL Glucose 148 H 131 H (74-99) mg/dL AST 140 H (17-59) U/L ALT 83 H 153 H (4-49) U/L Amylase 874 H* 538 H* (30-110) U/L Lipase 9696 H 4773 H (23-300) U/L Diabetes panel 10/06/21 10/07/21 Range/Units 13:35 04:10 Sodium 138 133 L (137-145) mmol/L Potassium 4.6 4.4 (3.5-5.1) mmol/L Chloride 103 104 (98-107) mmol/L Carbon Dioxide 29 25 (22-30) mmol/L BUN 13 13 (9-20) mg/dL Creatinine 0.72 0.61 L (0.66-1.25) mg/dL Glucose 148 H 131 H (74-99) mg/dL Calcium 9.7 8.5 (8.4-10.2) mg/dL AST 58 140 H (17-59) U/L ALT 83 H 153 H (4-49) U/L Alkaline Phosphatase 82 81 (38-126) U/L Total Protein 7.5 6.4 (6.3-8.2) g/dL Albumin 4.5 3.9 (3.5-5.0) g/dL Calcium panel 10/06/21 10/07/21 Range/Units 13:35 04:10 Calcium 9.7 8.5 (8.4-10.2) mg/dL Albumin 4.5 3.9 (3.5-5.0) g/dL Pituitary panel 10/06/21 10/07/21 Range/Units 13:35 04:10 Sodium 138 133 L (137-145) mmol/L Potassium 4.6 4.4 (3.5-5.1) mmol/L Chloride 103 104 (98-107) mmol/L Carbon Dioxide 29 25 (22-30) mmol/L BUN 13 13 (9-20) mg/dL Creatinine 0.72 0.61 L (0.66-1.25) mg/dL Glucose 148 H 131 H (74-99) mg/dL Calcium 9.7 8.5 (8.4-10.2) mg/dL Adrenal panel 10/06/21 10/07/21 Range/Units 13:35 04:10 Sodium 138 133 L (137-145) mmol/L Potassium 4.6 4.4 (3.5-5.1) mmol/L Chloride 103 104 (98-107) mmol/L Carbon Dioxide 29 25 (22-30) mmol/L BUN 13 13 (9-20) mg/dL Creatinine 0.72 0.61 L (0.66-1.25) mg/dL Glucose 148 H 131 H (74-99) mg/dL Calcium 9.7 8.5 (8.4-10.2) mg/dL Total Bilirubin 0.8 1.0 (0.2-1.3) mg/dL AST 58 140 H (17-59) U/L ALT 83 H 153 H (4-49) U/L Alkaline Phosphatase 82 81 (38-126) U/L Total Protein 7.5 6.4 (6.3-8.2) g/dL Albumin 4.5 3.9 (3.5-5.0) g/dL Assessment and Plan Plan: Acute pancreatitis. No surgical intervention is planned currently. Patient will be medically managed.
--- NOTE | 2021-10-07 18:13 | PN ---
PROGRESS NOTE DATE OF SERVICE: 10/07/2021 This 56-year-old gentleman who was admitted with abdominal pain and acute pancreatitis is still having abdominal pain and enzymes are still elevated. Surgical evaluation is in progress. No fever. No cough. PHYSICAL EXAMINATION: Alert and oriented x3. Pulse is 82, blood pressure 137/85, respiration 18, temperature 98.4, pulse ox 95% on room air. HEENT: Conjunctivae normal. Oral mucosa moist. NECK: No jugular venous distention. No carotid bruit. No lymph node enlargement. CARDIOVASCULAR: S1, S2 muffled. RESPIRATION: Breath sounds diminished at the bases. No rhonchi. ABDOMEN: Soft, obese. Mild diffuse tenderness. LEGS: No edema. No swelling. NERVOUS SYSTEM: No focal deficit. LABS: WBC 8.2, hemoglobin 16.2, sodium 133. Amylase is 538 and lipase is 4773. ASSESSMENT: 1. Acute severe pancreatitis and abdominal pain. 2. History of recurrent pancreatitis, possibly related to alcohol. 3. History of cholecystectomy. 4. Increased random blood sugar. 5. Increased white count. 6. Increased hemoglobin. 7. History of gastroesophageal reflux disease. 8. History of chronic low back pain. 9. History of hernia repair. 10.History of continued ongoing nicotine dependence. 11.Obesity with body mass index of 40.4. 12.FULL CODE. RECOMMENDATIONS AND DISCUSSION: I recommend to continue current medications, continue with symptomatic treatment. Continue with pain medications. Advance diet once the patient is better. Surgical evaluation appreciated. CT scan showed sigmoid diverticulosis. Prognosis guarded. Further recommendations to follow. MMODL / IJN: [id number] /
[2021-10-08] MEDS: HYDROmorphone 0.5 MG/0.5 ML SYRINGE IVP PRN ×5 (00:04→12:30)
[2021-10-08] MEDS: SODIUM CHLORIDE 0.9% 1,000 ML IV SCH ×3 (00:05→16:00)
[2021-10-08 07:43] LABS: Basophils % (A) 0 %; Eosinophils # (A) 0.3 k/uL (0-0.7); Eosinophils % (A) 3 %; HCT 46.6 % (39.0-53.0); HGB 15.6 gm/dL (13.0-17.5); Lymphocytes # (A) 1.5 k/uL (1.0-4.8); Lymphocytes % (A) 16 %; MCH 32.6 pg (25.0-35.0); MCHC 33.5 g/dL (31.0-37.0); MCV 97.3 fL (80.0-100.0); Mean Platelet Volume 7.9; Monocytes # (A) 0.6 k/uL (0-1.0); Monocytes % (A) 6 %; Neutrophils # (A) 6.8 k/uL (1.3-7.7); Neutrophils % (A) 73 %; Platelet Count 173 k/uL (150-450); RBC 4.79 m/uL (4.30-5.90); RDW 12.8 % (11.5-15.5); WBC 9.4 k/uL (3.8-10.6)
[2021-10-08] MEDS: HEPARIN SODIUM,PORCINE/PF 5,000 UNIT/0.5 ML SYRINGE SQ SCH (07:56)
[2021-10-08] MEDS: NICOTINE 14MG/24HR PATCH TRANSDERM SCH (07:56)
[2021-10-08] MEDS: PANTOPRAZOLE 40 MG/10 ML VIAL IVP SCH (07:56)
[2021-10-08 11:46] LABS: African American GFR (CKD) 121.6 (60.0-200.0); Albumin/Globulin Ratio 1.91 (1.60-3.17); Anion Gap 11.2 mmol/L (10.00-18.00); BUN/Creat Ratio 11.63 Ratio (12.00-20.00); Blood Urea Nitrogen 8.1 mg/dL (9.0-27.0); Calcium 8.7 mg/dL (8.7-10.3); Carbon Dioxide 22.5 mmol/L (20.0-27.5); Globulin 2.1 g/dL (1.6-3.3); Non-African American GFR(CKD) 104.9 (60.0-200.0); Potassium 4.2 mmol/L (3.5-5.5); Total Bilirubin 0.7 mg/dL (0.30-1.20); Total Protein 6.1 g/dL (6.2-8.2)
[2021-10-08 13:36] VITALS: BP 157/94; PULSE 77; RESP 17; TEMP 98
--- NOTE | 2021-10-08 13:59 | P.PN ---
Subjective Progress Note Date: 10/08/21 CHIEF COMPLAINT: Acute pancreatitis HISTORY OF PRESENT ILLNESS: The patient is a 56-year-old male admitted for acute pancreatitis. He tolerated some turkey dinner. Abdominal pain is resolving. ROS: No reports of nausea and vomiting. No fevers or chills. No new chest pain. No productive sputum PHYSICAL EXAM: VITAL SIGNS: Reviewed CONSTITUTIONAL: Well developed and in no acute distress. EYES: Conjuctivae without sclera icterus. Extraocular movements grossly intact. HEAD, EARS, NOSE, THROAT: Moist buccal mucosa. Head is atraumatic, normocephalic. Hears conversational speech. No nasal drainage. NECK: Supple. No thyroidomegaly. RESPIRATORY: Non-labored respirations and equal bilateral excursions. CARDIOVASCULAR: 2+ radial pulses. ABDOMEN: No peritonitis. MUSCULOSKELETAL: No gross deformity of the lower extremities noted. No clubbing. No cyanosis. SKIN: Good skin turgor. Well perfused. NEUROLOGIC: Cranial nerves I through XII grossly intact. No focal or lateralizing signs. PSYCH: Appropriate affect. Alert and oriented to person, place and time. CLINICAL LABS: Reviewed. Lipase down from over 9000 to over 500. WBC normal at 9.4. ASSESSMENT: 1. Acute pancreatitis PLAN: 1. Diet as tolerated 2. Stable for discharge from surgical standpoint when medically stable Objective - Vital Signs Vital signs: Vital Signs Temp 97.9 F 10/08/21 04:30 Pulse 70 10/08/21 04:30 Resp 20 10/08/21 04:30 BP 161/94 10/08/21 04:30 Pulse Ox 97 10/08/21 04:30 Intake & Output 10/07/21 10/08/21 10/08/21 18:59 06:59 18:59 Intake Total 1040 Balance 1040 Weight 113.398 kg Intake: Intake, IV Titration 1040 Amount Sodium Chloride 0.9% 1, 1040 000 ml @ 130 mls/hr IV . Q7H42M [facility] Rx#:[id number] Other: Voiding Method Toilet Toilet Toilet - Labs CBC & Chem 7: 10/08/21 07:25 10/08/21 07:25 Labs: Abnormal Lab Results - Last 24 Hours (Table) 10/08/21 Range/Units 07:25 BUN 8.1 L (9.0-27.0) mg/dL BUN/Creatinine Ratio 11.63 L (12.00-20.00) Ratio Glucose 140 H (70-110) mg/dL AST 45 H (14-35) U/L ALT 102 H (10-49) U/L Total Protein 6.1 L (6.2-8.2) g/dL Amylase 179 H (23-121) U/L Lipase 537 H (14-60) U/L Assessment and Plan (1) Acute pancreatitis Current Visit: No Status: Acute Code(s): K85.90 - ACUTE PANCREATITIS WITHOUT NECROSIS OR INFECTION, UNSP SNOMED Code(s): 309552369
--- NOTE | 2021-10-08 15:55 | DS ---
DISCHARGE SUMMARY DATE OF SERVICE: 10/08/2021. FINAL DIAGNOSES: 1. Acute severe pancreatitis with abdominal pain, improved. 2. History of recurrent pancreatitis, possibly related to alcohol. 3. History of cholecystectomy. 4. Increased random blood sugar. 5. Increased white count. 6. Increased hemoglobin. 7. History of gastroesophageal reflux disease. 8. History of chronic low back pain. 9. History of hernia repair. 10.History of continued ongoing nicotine dependence. 11.Obesity with body mass index of 40.4. 12.FULL CODE. DISCHARGE DISPOSITION: The patient will be discharged in stable condition with guarded prognosis. HISTORY OF PRESENT ILLNESS: This 56-year-old gentleman with a past medical history of multiple medical problems was admitted with acute severe pancreatitis. Amylase and lipase were elevated but are showing a diminishing trend. The patient is able to tolerate diet. The patient is discharged in stable condition with guarded prognosis. Surgery saw the patient. I recommended that the patient follow up with Dr. Davey and also possibly obtain a secondary opinion at a tertiary care center such as the [facility] regarding recurrent pancreatitis and also to rule out the possibility of pancreas divisum. As mentioned earlier, amylase improved from 874 to 179, and lipase improved from 9696 to 537. Other noted are unremarkable. DISCHARGE ADVICE AND MEDICATIONS: 1. Diet is cardiac, soft, bland, low fat. 2. [place] 10 mg b.i.d. p.r.n. MMODL / IJN: [id number] /
== END 2021-10-08 16:01 | disposition home or self-care (01) | DRG 439 ==
LOC: EC 09:34 → 5NMEDONC 16:24 → 1SOBS 19:35 → 5NMEDONC 10-07 15:17
PROVIDERS: ADMIT Hospitalist; ATTEND Hospitalist
DX: K85.20 Alcohol induced acute pancreatitis without necrosis or infection (principal); Z68.41 Body mass index [BMI] 40.0-44.9, adult; F10.188 Alcohol abuse with other alcohol-induced disorder; Z20.822 Contact with and (suspected) exposure to COVID-19; E66.9 Obesity, unspecified; K57.30 Diverticulosis of large intestine without perforation or abscess without bleeding; K86.0 Alcohol-induced chronic pancreatitis; K21.9 Gastro-esophageal reflux disease without esophagitis; D72.829 Elevated white blood cell count, unspecified; G89.29 Other chronic pain; M54.50 Low back pain, unspecified; F17.210 Nicotine dependence, cigarettes, uncomplicated; Z90.49 Acquired absence of other specified parts of digestive tract; Z87.19 Personal history of other diseases of the digestive system
CPT/HCPCS: 36415; 74176; 80053; 80320; 81003; 82150; 83690; 85025; 87635; 96361; 96374; 96375; 96376; 99285

== ENCOUNTER → 2021-10-13 | Outpatient (CLI) | payer BC ==
[2021-10-13 11:22] LABS: Basophils # (A) 0.05 X 10*3/uL (0.00-0.10); Basophils % (A) 0.6 %; Eosinophils # (A) 0.36 X 10*3/uL (0.04-0.35); Eosinophils % (A) 4.3 %; HCT 51.8 % (39.6-50.0); HGB 17.7 g/dL (13.0-17.0); Lymphocytes % (A) 31.3 %; MCH 32.4 pg (27.0-32.0); MCHC 34.2 g/dL (32.0-37.0); MCV 94.9 fL (80.0-97.0); Mean Platelet Volume 10.6 fL (9.5-12.2); Monocytes # (A) 0.86 X 10*3/uL (0.20-1.00); Monocytes % (A) 10.4 %; Platelet Count 244 X 10*3/uL (140-440); RBC 5.46 X 10*6/uL (4.40-5.60); RDW 13.1 % (11.5-14.5)
[2021-10-13 12:30] LABS: African American GFR (CKD) 113.6 (60.0-200.0); Albumin 4.7 g/dL (3.8-4.9); Albumin/Globulin Ratio 1.95 (1.60-3.17); Anion Gap 13.1 mmol/L (10.00-18.00); BUN/Creat Ratio 19.56 Ratio (12.00-20.00); Blood Urea Nitrogen 16.1 mg/dL (9.0-27.0); Calcium 10.1 mg/dL (8.7-10.3); Carbon Dioxide 26.2 mmol/L (20.0-27.5); Globulin 2.4 g/dL (1.6-3.3); Potassium 4.9 mmol/L (3.5-5.5); Total Bilirubin 0.3 mg/dL (0.30-1.20); Total Protein 7.1 g/dL (6.2-8.2)
== END | disposition home or self-care (01) ==
LOC: LABWHC1 08:19
PROVIDERS: ATTEND Hospitalist
DX: K85.90 Acute pancreatitis without necrosis or infection, unspecified (principal)
CPT/HCPCS: 36415; 80053; 82150; 83690; 85025

== ENCOUNTER 2022-02-13 13:26 | Inpatient (IN) | payer BC ==
[2022-02-13] MEDS ORDERED: SODIUM CHLORIDE 0.9% 1,000 ML IV STA (13:50)
[2022-02-13] MEDS ORDERED: HYDROmorphone 0.5 MG/0.5 ML SYRINGE IVP STA (13:53)
--- NOTE | 2022-02-13 14:01 | ED ---
General Adult HPI - General Chief complaint: Abdominal Pain Stated complaint: Pancreatitis Time Seen by Provider: 02/13/22 13:30 Source: patient, RN notes reviewed, old records reviewed Mode of arrival: ambulatory Limitations: no limitations - History of Present Illness Initial comments: This a 56-year-old male who presents emergency Department complaining of epigastric abdominal pain. Patient states is mildly nauseated. Patient states she's had pancreatitis multiple times in the past. Patient states she used to be a heavy drinker but quit drinking about one year ago. Patient states pain started this morning. Patient states it feels exactly the same as previous pancreatitis. Patient denies any chest pain difficult breathing shortness of br eath. Patient denies any recent fever chills or cough. Patient denies any radiation of the pain to his back. - Related Data Home Medications Medication Instructions Recorded Confirmed HYDROcodone/APAP 10-325MG [[place] 0.5 tab PO BID PRN 06/22/20 10/06/21 10-325] Previous Rx's Medication Instructions Recorded Acetaminophen Tab [Tylenol Tab] 500 mg PO Q6H PRN #30 tablet 10/08/21 Allergies Allergy/AdvReac Type Severity Reaction Status Date / Time No Known Allergies Allergy Verified 02/13/22 13:30 Review of Systems ROS Statement: Those systems with pertinent positive or pertinent negative responses have been documented in the HPI. ROS Other: All systems not noted in ROS Statement are negative. Past Medical History Past Medical History: GERD/Reflux Additional Past Medical History / Comment(s): CHRONIC LOWER BACK PAIN, pancreatitis History of Any Multi-Drug Resistant Organisms: None Reported Past Surgical History: Cholecystectomy, Hernia Repair Past Anesthesia/Blood Transfusion Reactions: No Reported Reaction Past Psychological History: No Psychological Hx Reported Smoking Status: Current every day smoker Past Alcohol Use History: Occasional Past Drug Use History: None Reported - Past Family History Mother Family Medical History: No Reported History Father Family Medical History: Hypertension General Exam - General Exam Comments Initial Comments: GENERAL: Patient is well-developed and well-nourished. Patient is nontoxic and well- hydrated and is in mild distress. ENT: Neck is soft and supple. No significant lymphadenopathy is noted. Oropharynx is clear. Moist mucous membranes. Neck has full range of motion without eliciting any pain. EYES: The sclera were anicteric and conjunctiva were pink and moist. Extraocular movements were intact and pupils were equal round and reactive to light. Ey elids were unremarkable. PULMONARY: Unlabored respirations. Good breath sounds bilaterally. No audible rales rhonchi or wheezing was noted. CARDIOVASCULAR: There is a regular rate and rhythm without any murmurs gallops or rubs. ABDOMEN: Epigastric abdominal pain SKIN: Skin is clear with no lesions or rashes and otherwise unremarkable. NEUROLOGIC: Patient is alert and oriented x3. Cranial nerves II through XII are grossly intact. Motor and sensory are also intact. Normal speech, volume and content. Symmetrical smile. MUSCULOSKELETAL: Normal extremities with adequate strength and full range of motion. LYMPHATICS: No significant lymphadenopathy is noted PSYCHIATRIC: Normal psychiatric evaluation. Limitations: no limitations Course Vital Signs 02/13/22 13:28 Temperature 97.6 F Pulse Rate 82 Respiratory 16 Rate Blood Pressure 161/89 O2 Sat by Pulse 95 Oximetry Medical Decision Making - Lab Data Result diagrams: 02/13/22 14:09 02/13/22 14:09 Lab Results 02/13/22 02/13/22 Range/Units 14:09 14:09 WBC 10.6 (3.8-10.6) k/uL RBC 5.41 (4.30-5.90) m/uL Hgb 17.5 (13.0-17.5) gm/dL Hct 52.3 (39.0-53.0) % MCV 96.6 (80.0-100.0) fL MCH 32.3 (25.0-35.0) pg MCHC 33.4 (31.0-37.0) g/dL RDW 13.3 (11.5-15.5) % Plt Count 197 (150-450) k/uL MPV 7.6 Neutrophils % 63 % Lymphocytes % 23 % Monocytes % 6 % Eosinophils % 6 % Basophils % 1 % Neutrophils # 6.7 (1.3-7.7) k/uL Lymphocytes # 2.4 (1.0-4.8) k/uL Monocytes # 0.6 (0-1.0) k/uL Eosinophils # 0.6 (0-0.7) k/uL Basophils # 0.1 (0-0.2) k/uL Sodium 138 (137-145) mmol/L Potassium 4.3 (3.5-5.1) mmol/L Chloride 104 (98-107) mmol/L Carbon Dioxide 27 (22-30) mmol/L Anion Gap 7 mmol/L BUN 13 (9-20) mg/dL Creatinine 0.80 (0.66-1.25) mg/dL Est GFR (CKD-EPI)AfAm >90 (>60 ml/min/1.73 sqM) Est GFR (CKD-EPI)NonAf >90 (>60 ml/min/1.73 sqM) Glucose 133 H (74-99) mg/dL Calcium 9.4 (8.4-10.2) mg/dL Total Bilirubin 0.9 (0.2-1.3) mg/dL AST 77 H (17-59) U/L ALT 77 H (4-49) U/L Alkaline Phosphatase 75 (38-126) U/L Total Protein 6.8 (6.3-8.2) g/dL Albumin 4.2 (3.5-5.0) g/dL Amylase 667 H* (30-110) U/L Lipase 6921 H (23-300) U/L Disposition Clinical Impression: Pancreatitis Disposition: ADMITTED IP TO THIS HOSP Referrals: Alyce Davey MD [Primary Care Provider] - 1-2 days Time of Disposition: 14:45
[2022-02-13 14:15] LABS: Basophils # (A) 0.1 k/uL (0-0.2); Basophils % (A) 1 %; Eosinophils # (A) 0.6 k/uL (0-0.7); Eosinophils % (A) 6 %; HCT 52.3 % (39.0-53.0); HGB 17.5 gm/dL (13.0-17.5); Lymphocytes # (A) 2.4 k/uL (1.0-4.8); Lymphocytes % (A) 23 %; MCH 32.3 pg (25.0-35.0); MCHC 33.4 g/dL (31.0-37.0); MCV 96.6 fL (80.0-100.0); Mean Platelet Volume 7.6; Monocytes # (A) 0.6 k/uL (0-1.0); Monocytes % (A) 6 %; Neutrophils # (A) 6.7 k/uL (1.3-7.7); Neutrophils % (A) 63 %; Platelet Count 197 k/uL (150-450); RBC 5.41 m/uL (4.30-5.90); RDW 13.3 % (11.5-15.5); WBC 10.6 k/uL (3.8-10.6)
[2022-02-13 14:28] LABS: ALT 77 U/L (4-49); AST 77 U/L (17-59); African American GFR (CKD) >90 (>60 ml/min/1.73 sqM); Albumin 4.2 g/dL (3.5-5.0); Alkaline Phosphatase 75 U/L (38-126); Anion Gap 7 mmol/L; Blood Urea Nitrogen 13 mg/dL (9-20); Calcium 9.4 mg/dL (8.4-10.2); Carbon Dioxide 27 mmol/L (22-30); Chloride 104 mmol/L (98-107); Glucose 133 mg/dL (74-99); Non-African American GFR(CKD) >90 (>60 ml/min/1.73 sqM); Potassium 4.3 mmol/L (3.5-5.1); Sodium 138 mmol/L (137-145); Total Bilirubin 0.9 mg/dL (0.2-1.3); Total Protein 6.8 g/dL (6.3-8.2)
[2022-02-13 14:44] LABS: Amylase 667 U/L (30-110)
[2022-02-13 14:57] LABS: Lipase 6921 U/L (23-300)
[2022-02-13] MEDS ORDERED: SODIUM CHLORIDE 0.9% 1,000 ML IV ONE (15:02)
[2022-02-13] MEDS: HYDROmorphone 0.5 MG/0.5 ML SYRINGE IVP PRN ×2 (16:23→20:03)
--- NOTE | 2022-02-13 16:28 | P.HPIM ---
History of Present Illness -year-old the female came in with regard compensative severe epigastric abdominal pain mild nausea did without any vomiting found to have severe pancreatitis with patient used to be an alcoholic but about any ago can use to smoke. Patient had previous history of pancreatitis. Patient is being admitted for pancreatitis. REVIEW OF SYSTEMS: CONSTITUTIONAL: No fever, no malaise, no fatigue. HEENT: No recent visual problems or hearing problems. Denied any sore throat. CARDIOVASCULAR: No chest pain, orthopnea, PND, no palpitations, no syncope. PULMONARY: No shortness of breath, no cough, no hemoptysis. GASTROINTESTINAL: Mentioned in HPI NEUROLOGICAL: No headaches, no weakness, no numbness. HEMATOLOGICAL: Denies any bleeding or petechiae. GENITOURINARY: Denies any burning micturition, frequency, or urgency. MUSCULOSKELETAL/RHEUMATOLOGICAL: Denies any joint pain, swelling, or any muscle pain. ENDOCRINE: Denies any polyuria or polydipsia. The rest of the 14-point review of systems is negative. PHYSICAL EXAMINATION: GENERAL: The patient is alert and oriented x3, not in any acute distress. Well developed, well nourished. HEENT: Pupils are round and equally reacting to light. EOMI. No scleral icterus. No conjunctival pallor. Normocephalic, atraumatic. No pharyngeal erythema. No thyromegaly. CARDIOVASCULAR: S1 and S2 present. No murmurs, rubs, or gallops. PULMONARY: Chest is clear to auscultation, no wheezing or crackles. ABDOMEN: Tenderness in the epigastric area nondistended, normoactive bowel sounds. No palpable organomegaly. MUSCULOSKELETAL: No joint swelling or deformity. EXTREMITIES: No cyanosis, clubbing, or pedal edema. NEUROLOGICAL: Gross neurological examination did not reveal any focal deficits. SKIN: No rashes. Assessment and plan -Alcoholic pancreatitis: Patient will remain nothing by mouth IV fluid supportive care -Nicotine use: Counseling was provided DVT prophylaxis: Lovenox Past Medical History Past Medical History: GERD/Reflux Additional Past Medical History / Comment(s): CHRONIC LOWER BACK PAIN, pancreatitis History of Any Multi-Drug Resistant Organisms: None Reported Past Surgical History: Cholecystectomy, Hernia Repair Past Anesthesia/Blood Transfusion Reactions: No Reported Reaction Past Psychological History: No Psychological Hx Reported Smoking Status: Current every day smoker Past Alcohol Use History: Occasional Past Drug Use History: None Reported - Past Family History Mother Family Medical History: No Reported History Father Family Medical History: Hypertension Medications and Allergies Home Medications Medication Instructions Recorded Confirmed Type HYDROcodone/APAP 10-325MG [[place] 1 tab PO DAILY 06/22/20 02/13/22 History 10-325] Ibuprofen [Motrin] 800 mg PO TID PRN 02/13/22 02/13/22 History Levofloxacin [Levaquin] 750 mg PO DAILY 02/13/22 02/13/22 History Allergies Allergy/AdvReac Type Severity Reaction Status Date / Time No Known Allergies Allergy Verified 02/13/22 13:30 Physical Exam Vitals: Vital Signs Temp Pulse Resp BP Pulse Ox 02/13/22 16:19 80 18 154/87 95 02/13/22 13:28 97.6 F 82 16 161/89 95 Intake and Output 02/13/22 02/13/22 02/13/22 06:59 14:59 22:59 Other: Weight 97.976 kg Results CBC & Chem 7: 02/13/22 14:09 02/13/22 14:09 Labs: Abnormal Lab Results - Last 24 Hours (Table) 02/13/22 Range/Units 14:09 Glucose 133 H (74-99) mg/dL AST 77 H (17-59) U/L ALT 77 H (4-49) U/L Amylase 667 H* (30-110) U/L Lipase 6921 H (23-300) U/L
[2022-02-13] MEDS ORDERED: ALBUTEROL NEBULIZED 2.5 MG/3 ML INHALATION PRN (16:52)
[2022-02-13] MEDS: SODIUM CHLORIDE 0.9% 1,000 ML IV SCH (17:05)
[2022-02-13] MEDS: ONDANSETRON 4 MG/2 ML VIAL IVP PRN (17:05)
[2022-02-13] MEDS: PANTOPRAZOLE 40 MG/10 ML VIAL IVP SCH (17:05)
[2022-02-14] MEDS: HYDROmorphone 0.5 MG/0.5 ML SYRINGE IVP PRN ×6 (00:14→20:26)
[2022-02-14] MEDS: SODIUM CHLORIDE 0.9% 1,000 ML IV SCH ×3 (03:25→22:24)
[2022-02-14] MEDS: ACETAMINOPHEN TAB 325 MG TAB PO PRN ×4 (04:06→22:59)
[2022-02-14] MEDS: ONDANSETRON 4 MG/2 ML VIAL IVP PRN (04:06)
[2022-02-14] MEDS: ENOXAPARIN 40 MG/0.4 ML SYRINGE SQ SCH (08:37)
[2022-02-14] MEDS: PANTOPRAZOLE 40 MG/10 ML VIAL IVP SCH (08:37)
--- NOTE | 2022-02-14 10:19 | P.PN ---
Subjective -year-old the female came in with regard compensative severe epigastric abdominal pain mild nausea did without any vomiting found to have severe maciel creatitis with patient used to be an alcoholic but about any ago can use to smoke. Patient had previous history of pancreatitis. Patient is being admitted for pancreatitis. 02/14/2022 Patient's abdominal pain is much better had 1 episode of vomiting but patient feels he is ready to be advanced to clear liquid diet for lunch. Constitutional: Denied any fatigue denied any fever. Cardio vascular: denied any chest pain, palpitations Gastrointestinal as mentioned in the interval history Pulmonary: Denied any shortness of breath cough Neurologic denied any new focal deficits All inpatient medications were reviewed and appropriate changes in these medications as dictated in the interval history and assessment and plan. PHYSICAL EXAMINATION: GENERAL: The patient is alert and oriented x3, not in any acute distress. Well developed, well nourished. HEENT: Pupils are round and equally reacting to light. EOMI. No scleral icterus. No conjunctival pallor. Normocephalic, atraumatic. No pharyngeal erythema. No thyromegaly. CARDIOVASCULAR: S1 and S2 present. No murmurs, rubs, or gallops. PULMONARY: Chest is clear to auscultation, no wheezing or crackles. ABDOMEN: no Tenderness in the epigastric area, distended, normoactive bowel sounds. No palpable organomegaly. MUSCULOSKELETAL: No joint swelling or deformity. EXTREMITIES: No cyanosis, clubbing, or pedal edema. NEUROLOGICAL: Gross neurological examination did not reveal any focal deficits. SKIN: No rashes. Assessment and plan -Alcoholic pancreatitis: Advance the diet to clear liquid IV fluid supportive care -Nicotine use: Counseling was provided 1 mild nonspecific transaminitis probably because of his previous alcoholism no further intervention at this time. DVT prophylaxis: Lovenox Objective - Vital Signs Vital signs: Vital Signs Temp 97.6 F 02/14/22 07:00 Pulse 70 02/14/22 07:00 Resp 16 02/14/22 07:00 BP 120/79 02/14/22 07:00 Pulse Ox 93 L 02/14/22 07:00 Intake & Output 02/13/22 02/14/22 02/14/22 18:59 06:59 18:59 Weight 97.976 kg Other: # Voids 1 - Labs CBC & Chem 7: 02/13/22 14:09 02/13/22 14:09 Labs: Abnormal Lab Results - Last 24 Hours (Table) 02/13/22 Range/Units 14:09 Glucose 133 H (74-99) mg/dL AST 77 H (17-59) U/L ALT 77 H (4-49) U/L Amylase 667 H* (30-110) U/L Lipase 6921 H (23-300) U/L
[2022-02-15] MEDS: HYDROmorphone 0.5 MG/0.5 ML SYRINGE IVP PRN ×3 (00:49→09:01)
[2022-02-15 04:15] VITALS: TEMP 97.9
[2022-02-15 07:54] VITALS: BP 141/51; PULSE 60; RESP 18
[2022-02-15] MEDS: SODIUM CHLORIDE 0.9% 1,000 ML IV SCH (08:36)
[2022-02-15] MEDS: ENOXAPARIN 40 MG/0.4 ML SYRINGE SQ SCH (08:36)
[2022-02-15] MEDS: PANTOPRAZOLE 40 MG/10 ML VIAL IVP SCH (08:36)
--- NOTE | 2022-02-15 14:45 | P.DS ---
Providers Date of admission: 02/13/22 15:02 Expected date of discharge: 02/15/22 Attending physician: Marjorie Falcon Primary care physician: Tamica Mead Hospital Course: Final diagnosis Alcoholic pancreatitis Continued ongoing nicotine use Mild nonspecific transaminitis most probably secondary to his previous alcoholism DVT prophylaxis Discharge disposition Patient is being discharged in a stable condition with guarded prognosis to home. Patient will follow-up with Dr. Davey in the outpatient setting upon discharge. Total time taken is greater than 35 minutes. Hospital course This is a 56-year-old male who was recently admitted with severe epigastric abdominal pain with mild nausea and found to have severe pancreatitis and was being closely monitored. Patient maintained on IV fluids and had some improvement recommending advancing and diet. Patient currently continued on full liquid diet and has been tolerating with no further abdominal pain or nausea or vomiting associated. Patient reports to wanting to go home today. Currently no reports of chest pain, shortness of breath, or palpitations. Patient is afebrile. No reports of nausea or vomiting and patient is tolerating diet. Patient will be discharged home today. Guarded prognosis. Physical exam: GENERAL: The patient is alert and oriented x3, not in any acute distress. Well developed, well nourished. HEENT: Pupils are round and equally reacting to light. EOMI. No scleral icterus. No conjunctival pallor. Normocephalic, atraumatic. No pharyngeal erythema. No thyromegaly. CARDIOVASCULAR: S1 and S2 present. No murmurs, rubs, or gallops. PULMONARY: Chest is clear to auscultation, no wheezing or crackles. ABDOMEN: no Tenderness in the epigastric area, distended, normoactive bowel sounds. No palpable organomegaly. MUSCULOSKELETAL: No joint swelling or deformity. EXTREMITIES: No cyanosis, clubbing, or pedal edema. NEUROLOGICAL: Gross neurological examination did not reveal any focal deficits. SKIN: No rashes. Please refer to medication reconciliation sheet for a list of medications. The impression and plan of care has been dictated by Eugenie Lam, Nurse Practitioner as directed. Dr. Ezekiel MD I have performed a history and examination and MDM of this patient, discussed the same with the dictator, and agree with the dictator's assessment and plan as written ,documented as a scribe. Based on total visit time, I have performed more than 50% of the visit. Patient Condition at Discharge: Stable Plan - Discharge Summary Discharge Rx Participant: No New Discharge Prescriptions: Continue HYDROcodone/APAP 10-325MG [[place] 10-325] 1 tab PO DAILY Ibuprofen [Motrin] 800 mg PO TID PRN PRN Reason: Pain Discontinued Levofloxacin [Levaquin] 750 mg PO DAILY Discharge Medication List HYDROcodone/APAP 10-325MG [[place] 10-325] 1 tab PO DAILY 06/22/20 [History] Ibuprofen [Motrin] 800 mg PO TID PRN 02/13/22 [History] Follow up Appointment(s)/Referral(s): Alyce Davey MD [Primary Care Provider] - 1-2 days Ambulatory/Diagnostic Orders: ALT [LAB.AMB] Time Frame: 1 Week, Location: None Selected Patient Instructions/Handouts: Pancreatitis (DC) Activity/Diet/Wound Care/Special Instructions: Activity Limited until follow-up Follow-up with primary care provider on discharge Continue with full liquid diet and slowly advance over the next few days to low fiber Avoid alcohol intake Avoid tobacco use Recommend repeat labs in the next few days Discharge Disposition: HOME SELF-CARE
== END 2022-02-15 12:28 | disposition home or self-care (01) | DRG 440 ==
LOC: EC 13:26 → 6NMEDSUR 15:02
PROVIDERS: ADMIT Internal Medicine; ATTEND Internal Medicine
DX: K85.90 Acute pancreatitis without necrosis or infection, unspecified (principal); F17.210 Nicotine dependence, cigarettes, uncomplicated; R74.01 Elevation of levels of liver transaminase levels; G89.29 Other chronic pain; M54.50 Low back pain, unspecified; K86.1 Other chronic pancreatitis; K21.9 Gastro-esophageal reflux disease without esophagitis; Z87.19 Personal history of other diseases of the digestive system; Z90.49 Acquired absence of other specified parts of digestive tract; Z82.49 Family history of ischemic heart disease and other diseases of the circulatory system
CPT/HCPCS: 36415; 80053; 82150; 83690; 85025; 96361; 96374; 99285

== ENCOUNTER 2023-02-13 21:47 | Emergency (ER) | payer BC ==
[2023-02-13 21:57] VITALS: BP 170/97; PULSE 82; RESP 18; TEMP 97
[2023-02-13] MEDS ORDERED: DEXAMETHASONE SOD PHOSPHATE 10 MG/ML 1 ML VIAL IM STA (22:07)
[2023-02-13] MEDS ORDERED: Acetaminophen-Codeine 300-30mg TAB PO STA (22:20)
--- NOTE | 2023-02-13 22:20 | ED ---
ENT HPI - General Chief complaint: Dental/Oral Stated complaint: Pain on left side of face Time Seen by Provider: 02/13/23 22:00 Source: patient, RN notes reviewed, old records reviewed Mode of arrival: ambulatory Limitations: no limitations - History of Present Illness Initial comments: Patient presents with left maxillary facial pain for the past 3 weeks after having 2 dental fractures repaired left upper. Patient states he has been back to his dentist multiple times for the pain and had repeat imaging with no evidence of infection. He's been taking Metter with no relief. States pain immediately gets better when he drinks something very cold but then pain returns. Denies any fevers. MD complaint: tooth pain -: week(s) (3) Location: tooth # (14-15) Severity scale (1-10): 9 Quality: constant Consistency: constant Improves with: other (cold water) Context- Dental: other (repair of two fractured teeth 3 weeks ago) Associated Symptoms: other - Related Data Home Medications Medication Instructions Recorded Confirmed HYDROcodone/APAP 10-325MG [[place] 1 tab PO DAILY 06/22/20 02/13/22 10-325] Ibuprofen [Motrin] 800 mg PO TID PRN 02/13/22 02/13/22 Previous Rx's Medication Instructions Recorded predniSONE [Deltasone] 20 mg PO DAILY 5 Days #5 tab 02/13/23 Allergies Allergy/AdvReac Type Severity Reaction Status Date / Time No Known Allergies Allergy Verified 02/13/23 21:54 Review of Systems ROS Statement: Those systems with pertinent positive or pertinent negative responses have been documented in the HPI. ROS Other: All systems not noted in ROS Statement are negative. Past Medical History Past Medical History: GERD/Reflux Additional Past Medical History / Comment(s): CHRONIC LOWER BACK PAIN, pancreatitis History of Any Multi-Drug Resistant Organisms: None Reported Past Surgical History: Cholecystectomy, Hernia Repair Past Anesthesia/Blood Transfusion Reactions: No Reported Reaction Past Psychological History: No Psychological Hx Reported Smoking Status: Current some day smoker Past Alcohol Use History: None Reported Past Drug Use History: None Reported - Past Family History Mother Family Medical History: No Reported History Father Family Medical History: Hypertension General Exam Limitations: no limitations General appearance: alert, in no apparent distress Head exam: Present: atraumatic Eye exam: Present: normal appearance. Absent: scleral icterus, conjunctival injection, periorbital swelling ENT exam: Present: normal oropharynx, mucous membranes moist Expanded Teeth exam: Present: normal inspection. Absent: gingival enlargement Throat exam: negative: tonsillar erythema Neck exam: Present: full ROM. Absent: tenderness, meningismus, lymphadenopathy Respiratory exam: Absent: respiratory distress, accessory muscle use Cardiovascular Exam: Present: regular rate, normal rhythm Neurological exam: Present: alert, oriented X3, CN II-XII intact, normal gait Psychiatric exam: Present: normal affect, normal mood Skin exam: Present: warm, dry, normal color. Absent: cyanosis, diaphoretic, petechiae, pallor Course Vital Signs 02/13/23 21:54 Temperature 97 F L Pulse Rate 82 Respiratory 18 Rate Blood Pressure 170/97 O2 Sat by Pulse 96 Oximetry Medical Decision Making - Medical Decision Making Patient given a shot of Decadron as this may be inflammation of the facial nerve status post repair of 2 dental fractures 3 weeks ago. Patient has had pain since. There is no fevers. No drainable abscess. No gingival enlargement or erythema. He was offered Metter and declined stating he's been taking that at home with no relief. Patient offered a dental block and declined. He was directed to follow up with his dentist to discuss possible root canal for continued pain. States he is normally able to get into his dentist if he is in a lot of pain. Script for prednisone for next five days given. Case discussed with Dr. Choudhury. Was pt. sent in by a medical professional or institution (, PA, HIGH SCHOOL GUIDANCE COUNSELOR, urgent care, hospital, or [facility]...) When possible be specific @ -No Did you speak to anyone other than the patient for history (EMS, parent, family, police, friend...)? What history was obtained from this source @ -No Did you review nursing and triage notes (agree or disagree)? Why? @ -I reviewed and agree with nursing and triage notes Were old charts reviewed (outside hosp., previous admission, EMS record, old EKG, old radiological studies, urgent care reports/EKG's, [facility] records)? Report findings @ -No old charts were reviewed Differential Diagnosis (chest pain, altered mental status, abdominal pain women, abdominal pain men, vaginal bleeding, weakness, fever, dyspnea, syncope, headache, dizziness, GI bleed, back pain, seizure, CVA, palpatations, mental health, musculoskeletal)? @ -Dental fracture, dental abscess, periapical abscess, cellulitis EKG interpreted by me (3pts min.). @ -n/a X-rays interpreted by me (1pt min.). @ -None done CT interpreted by me (1pt min.). @ -None done U/S interpreted by me (1pt. min.). @ -None done What testing was considered but not performed or refused? (CT, X-rays, U/S, labs)? Why? @ -None What meds were considered but not given or refused? Why? @ -Metter and dental block was offered and refused Did you discuss the management of the patient with other professionals (professionals i.e. , PA, HIGH SCHOOL GUIDANCE COUNSELOR, lab, RT, psych nurse, social media strategist, aesthetics instructor, teacher, chief strategy officer, ed case manager)? Give summary @ -No Was smoking cessation discussed for >3mins.? @ -yes Was critical care preformed (if so, how long)? @ -No Were there social determinants of health that impacted care today? How? (Ho melessness, low income, unemployed, alcoholism, drug addiction, transportation, low edu. Level, literacy, decrease access to med. care, skilled nursing, rehab)? @ -No Was there de-escalation of care discussed even if they declined (Discuss DNR or withdrawal of care, Hospice)? DNR status @ -No What co-morbidities impacted this encounter? (DM, HTN, Smoking, COPD, CAD, Cancer, CVA, ARF, Chemo, Hep., AIDS, mental health diagnosis, sleep apnea, morbid obesity)? @ -Smoking Was patient admitted / discharged? Hospital course, mention meds given and route, prescriptions, significant lab abnormalities, going to OR and other pertinent info. @ -discharged Undiagnosed new problem with uncertain prognosis? @ -No Drug Therapy requiring intensive monitoring for toxicity (Heparin, Nitro, Insulin, Cardizem)? @ -No Were any procedures done? @ -No Diagnosis/symptom? @ -Toothache Acute, or Chronic, or Acute on Chronic? @ -Acute Uncomplicated (without systemic symptoms) or Complicated (systemic symptoms)? @ -uncomplicated Side effects of treatment? @ -No Exacerbation, Progression, or Severe Exacerbation? @ -No Poses a threat to life or bodily function? How? (Chest pain, [place], [place], pneumonia, PE, COPD, DKA, ARF, appy, cholecystitis, CVA, Diverticulitis, Homicidal, Suicidal, threat to staff... and all critical care pts) @ -No Disposition Clinical Impression: Toothache Disposition: HOME SELF-CARE Condition: Good Instructions (If sedation given, give patient instructions): Toothache (ED) Additional Instructions: Start the prednisone prescription tomorrow. Do not take Motrin or ibuprofen products when taking prednisone. Contact your dentist to discuss continued pain and the possible need for a root canal or other recommendations for continuation of care. Continue to try and quit smoking. Prescriptions: predniSONE [Deltasone] 20 mg PO DAILY 5 Days #5 tab Is patient prescribed a controlled substance at d/c from ED?: No Referrals: None,Stated [Primary Care Provider] - 1-2 days Time of Disposition: 22:19
== END 2023-02-13 22:43 | disposition home or self-care (01) ==
LOC: EC 21:47
DX: K08.89 Other specified disorders of teeth and supporting structures (principal); F17.200 Nicotine dependence, unspecified, uncomplicated
CPT/HCPCS: 99282; 96372; J1100

== ENCOUNTER → 2024-05-08 | Outpatient (CLI) | payer OTHER ==
--- NOTE | 2024-05-08 12:57 | CTL ---
EXAMINATION TYPE: CT Low Dose Lung DATE OF EXAM ORDERED: 05/08/2024 HISTORY: 58-year-old male current smoker with 40 pack-year history. Lung cancer screening. F17.[address] DLP: [address] CTDI: 4.0 mGy Automated exposure control for dose reduction was used. SCREENING VISIT: Baseline COMPARISON: None TECHNIQUE: Low dose computed tomography scan was performed through the chest at 1 mm thick sections a nd reconstructed images in multiple planes at 1 mm and [address] DIAGNOSTIC QUALITY: Satisfactory FINDINGS: Heart normal size without pericardial effusion. Mild LAD coronary artery calcifications are present. Mild aneurysm ascending aorta 4.1 cm. The metatarsals branching anatomy. No thoracic lymphadenopathy by CT size criteria. Mild to moderate diffuse bronchial wall thickening. Mild emphysematous change in the upper lungs. No consolidation or pleural effusion. Calcified granuloma left upper lobe is benign. Tiny calcified gran uloma anterior right lower lobe, image 194. No suspicious pulmonary nodule is seen. Visualized upper abdomen shows mild diverticular change of the splenic flexure of colon. Bones: Bridging anterior endplate spondylosis T8-T9. IMPRESSION: 1. LungRADS 2, benign. A couple benign calcified granulomas. No suspicious pulmonary nodules. 2. COPD with mild emphysema. 3. Mild aneurysm ascending aorta 4.[address] LUNG RAD AND CT CHEST RECOMMENDATION: Lung-Rad 2 Benign Appearance or Behavior: Continue annual sc reening with LDCT in 12 months. S Modifier (other clinically significant findings): None
== END | disposition home or self-care (01) ==
LOC: RADCTMAIN 07:20
PROVIDERS: ATTEND Family Medicine
DX: Z12.2 Encounter for screening for malignant neoplasm of respiratory organs (principal); J84.10 Pulmonary fibrosis, unspecified; J43.9 Emphysema, unspecified; F17.210 Nicotine dependence, cigarettes, uncomplicated
CPT/HCPCS: 71271

== ENCOUNTER 2024-11-11 11:04 | Inpatient (IN) | payer OTHER ==
--- NOTE | 2024-11-11 11:11 | ED ---
General Adult HPI - General Source: patient, RN notes reviewed Mode of arrival: ambulatory Limitations: no limitations <Aziza Malloy - Last Filed: 11/11/24 11:22> <Renato Charles - Last Filed: 11/11/24 13:31> - General Stated complaint: XIOMARA Time Seen by Provider: 11/11/24 11:10 - History of Present Illness Initial comments: Quick note: 59-year-old male presents to the emergency department sent in by his primary care provider for evaluation of shortness of breath x 2 weeks. Patient has been treated outpatient with steroids and antibiotics and notes that he is continue to have worsening symptoms over the past 3 days. Denies chest pain. Denies fever. (Aziza Malloy) Dictation was produced using [employer] dictation software. please excuse any grammatical, word or spelling errors. Chief Complaint: 59-year-old male presents to the emergency department with pneumonia symptoms History of Present Illness: Patient 59-year-old male with history of diabetes and tobacco use presents to the ER for shortness of breath. He is being treated for bronchitis. Been symptomatic for approximately 2 weeks. Patient completed a course of antibiotics and steroids with no improvement of symptoms. Signs of chills nonproductive cough. The ROS documented in this emergency department record has been reviewed and confirmed by me. Those systems with pertinent positive or negative responses have been documented in the HPI. All other systems are other negative and/or noncontributory. (Renato Charles) - Related Data Home Medications Medication Instructions Recorded Confirmed HYDROcodone/APAP 10-325MG [[place] 1 tab PO DAILY 06/22/20 02/13/22 10-325] Ibuprofen [Motrin] 800 mg PO TID PRN 02/13/22 02/13/22 Previous Rx's Medication Instructions Recorded predniSONE [Deltasone] 20 mg PO DAILY 5 Days #5 tab 02/13/23 Allergies Allergy/AdvReac Type Severity Reaction Status Date / Time No Known Allergies Allergy Verified 11/11/24 13:24 Review of Systems ROS Other: All systems not noted in ROS Statement are negative. <Aziza Malloy - Last Filed: 11/11/24 11:22> ROS Other: All systems not noted in ROS Statement are negative. <Renato Charles - Last Filed: 11/11/24 13:31> ROS Statement: Those systems with pertinent positive or pertinent negative responses have been documented in the HPI. Past Medical History Past Medical History: GERD/Reflux Additional Past Medical History / Comment(s): CHRONIC LOWER BACK PAIN, pancreatitis History of Any Multi-Drug Resistant Organisms: None Reported Past Surgical History: Cholecystectomy, Hernia Repair Past Anesthesia/Blood Transfusion Reactions: No Reported Reaction Past Psychological History: No Psychological Hx Reported Smoking Status: Current some day smoker Past Alcohol Use History: None Reported Past Drug Use History: None Reported - Past Family History Mother Family Medical History: No Reported History Father Family Medical History: Hypertension <Aziza Malloy - Last Filed: 11/11/24 11:22> General Exam <Aziza Malloy - Last Filed: 11/11/24 11:22> <Renato Charles - Last Filed: 11/11/24 13:31> - General Exam Comments Initial Comments: Visual Physical Exam Vital signs reviewed General: Well-appearing, nontoxic, no acute distress. Head: Normocephalic, atraumatic Eyes: PERRLA, EOMI ENT: Airway patent Chest: Nonlabored breathing Skin: No visual rash, normal skin tone Neuro: Alert and oriented 3 Musculoskeletal: No gross abnormalities (Aziza Malloy) PHYSICAL EXAM: General Impression: Alert and oriented x3, not in acute distress HEENT: Normocephalic atraumatic, extra-ocular movements intact, pupils equal and reactive to light bilaterally, mucous membranes moist. Cardiovascular: Heart regular rate and rhythm Chest: Able to complete full sentences, no retractions, no tachypnea rhonchi to the left posterior lung base Abdomen: abdomen soft, non-tender, non-distended, no organomegaly Musculoskeletal: Pulses present and equal in all extremities, no peripheral edema Motor: no focal deficits noted Neurological: CN II-XII grossly intact, no focal motor or sensory deficits noted Skin: Intact with no visualized rashes Psych: Normal affect and mood (Renato Charles) Course Vital Signs 11/11/24 11/11/24 11/11/24 11:18 13:04 13:09 Temperature 97.9 F Pulse Rate 83 84 Respiratory 20 18 Rate Blood Pressure 137/80 129/85 O2 Sat by Pulse 91 L 88 L 94 L Oximetry Medical Decision Making <Aziza Malloy - Last Filed: 11/11/24 11:22> - Lab Data Result diagrams: 11/11/24 11:34 11/11/24 11:34 <Renato Charles - Last Filed: 11/11/24 13:31> - Medical Decision Making Quick note preformed and electronically signed by Aziza Malloy PA-C (Aziza Malloy) Was pt. sent in by a medical professional or institution ([facility], [employer], urgent care, hospital, or prison...) When possible be specific @ -No Did you speak to anyone other than the patient for history (EMS, parent, family, police, friend...)? What history was obtained from this source @ -No Did you review nursing and triage notes (agree or disagree)? Why? @ -I reviewed and agree with nursing and triage notes Were old charts reviewed (outside hosp., previous admission, EMS record, old EKG, old radiological studies, urgent care reports/EKG's, prison records)? Report findings @ -No old charts were reviewed Differential Diagnosis (chest pain, altered mental status, abdominal pain women, abdominal pain men, vaginal bleeding, musculoskeletal, weakness, fever, dyspnea, syncope, headache, dizziness, GI bleed, back pain, seizure, CVA, palpatations, mental health)? @ -Differential Dyspnea: Coronary syndrome, arrhythmia, tamponade, asthma, COPD, pulmonary embolism, pneumonia, pneumothorax, pulmonary effusion, anaphylaxis, diabetic ketoacidosis, flailed chest, pulmonary contusion, diaphragmatic rupture, anemia, neuromuscular, this is not meant to be an all-inclusive list. EKG interpreted by me (3pts min.). @ -None done X-rays interpreted by me (1pt min.). @ -Chest x-ray shows pulmonary infiltrate consistent with pneumonia CT interpreted by me (1pt min.). @ -None done U/S interpreted by me (1pt. min.). @ -None done What testing was considered but not performed or refused? (CT, X-rays, U/S, labs)? Why? @ -None What meds were considered but not given or refused? Why? @ -None Was smoking cessation discussed for >3mins.? @ -No Were there social determinants of health that impacted care today? How? (Homelessness, low income, unemployed, alcoholism, drug addiction, trans portation, low edu. Level, literacy, decrease access to med. care, long term, rehab)? @ -No Was there de-escalation of care discussed even if they declined (Discuss DNR or withdrawal of care, Hospice)? DNR status @ -No What co-morbidities impacted this encounter? (DM, HTN, Smoking, COPD, CAD, Cancer, CVA, ARF, Chemo, Hep., AIDS, mental health diagnosis, sleep apnea, morbid obesity)? @ -Tobacco abuse Was patient admitted / discharged? Hospital course, mention meds given and route, prescriptions, significant lab abnormalities, going to OR and other pertinent info. @ -59-year-old male presents to the emergency department with persistent respiratory infectious symptoms. He is a tobacco user. Vital signs stable. Patient has lung auscultatory findings and x-ray positive for pneumonia. Patient be admitted for pneumonia failed outpatient treatment. Case discussed with hospitalist for admission. Pulmonology will be consulted. Did you discuss the management of the patient with other professionals (professionals i.e. , PA, [employer], lab, RT, psych nurse, transition social worker, press bucker, teacher, licensed loan officer, shelter case manager)? Give summary @ -As above Was critical care preformed (if so, how long)? @ -No Undiagnosed new problem with uncertain prognosis? @ -No Drug Therapy requiring intensive monitoring for toxicity (Heparin, Nitro, Insulin, Cardizem)? @ -No Were any procedures done? @ -No Diagnosis/symptom? Acute, or Chronic, or Acute on Chronic? Uncomplicated (without systemic symptoms) or Complicated (systemic symptoms)? @ -Pneumonia Side effects of treatment? @ -No Exacerbation, Progression, or Severe Exacerbation? @ -No Poses a threat to life or bodily function? How? (Chest pain, [place], AR, pneumonia, PE, COPD, DKA, ARF, appy, cholecystitis, CVA, Diverticulitis, Homicidal, Suici carolyn, threat to staff... and all critical care pts) @ -yes (Renato Charles) - Lab Data Lab Results 11/11/24 11/11/24 11/11/24 Range/Units 11:34 11:34 11:34 WBC 8.2 (3.8-10.6) k/uL RBC 5.81 (4.30-5.90) m/uL Hgb 18.7 H (13.0-17.5) gm/dL Hct 54.8 H (39.0-53.0) % MCV 94.3 (80.0-100.0) fL MCH 32.2 (25.0-35.0) pg MCHC 34.2 (31.0-37.0) g/dL RDW 13.5 (11.5-15.5) % Plt Count 163 (150-450) k/uL MPV 8.0 Neutrophils % 46 % Lymphocytes % 39 % Monocytes % 6 % Eosinophils % 5 % Basophils % 1 % Neutrophils # 3.8 (1.3-7.7) k/uL Lymphocytes # 3.2 (1.0-4.8) k/uL Monocytes # 0.5 (0-1.0) k/uL Eosinophils # 0.4 (0-0.7) k/uL Basophils # 0.1 (0-0.2) k/uL PT 10.9 (10.0-12.5) sec INR 1.0 (<1.2) APTT 23.8 (22.0-30.0) sec Sodium 135 L (137-145) mmol/L Potassium 4.2 (3.5-5.1) mmol/L Chloride 100 (98-107) mmol/L Carbon Dioxide 25 (22-30) mmol/L Anion Gap 10 mmol/L BUN 20 (9-20) mg/dL Creatinine 0.64 L (0.66-1.25) mg/dL Est GFR (CKD-EPI)AfAm >90 (>60 ml/min/1.73 sqM) Est GFR (CKD-EPI)NonAf >90 (>60 ml/min/1.73 sqM) Glucose 132 H (74-99) mg/dL Plasma Lactic Acid Juanpablo (0.7-2.0) mmol/L Calcium 9.5 (8.4-10.2) mg/dL Magnesium 1.8 (1.6-2.3) mg/dL Total Bilirubin 0.8 (0.2-1.3) mg/dL AST 31 (17-59) U/L ALT 47 (4-49) U/L Alkaline Phosphatase 101 (38-126) U/L NT-Pro-B Natriuret Pep 66 pg/mL Total Protein 7.0 (6.3-8.2) g/dL Albumin 4.6 (3.5-5.0) g/dL 11/11/24 Range/Units 11:34 WBC (3.8-10.6) k/uL RBC (4.30-5.90) m/uL Hgb (13.0-17.5) gm/dL Hct (39.0-53.0) % MCV (80.0-100.0) fL MCH (25.0-35.0) pg MCHC (31.0-37.0) g/dL RDW (11.5-15.5) % Plt Count (150-450) k/uL MPV Neutrophils % % Lymphocytes % % Monocytes % % Eosinophils % % Basophils % % Neutrophils # (1.3-7.7) k/uL Lymphocytes # (1.0-4.8) k/uL Monocytes # (0-1.0) k/uL Eosinophils # (0-0.7) k/uL Basophils # (0-0.2) k/uL PT (10.0-12.5) sec INR (<1.2) APTT (22.0-30.0) sec Sodium (137-145) mmol/L Potassium (3.5-5.1) mmol/L Chloride (98-107) mmol/L Carbon Dioxide (22-30) mmol/L Anion Gap mmol/L BUN (9-20) mg/dL Creatinine (0.66-1.25) mg/dL Est GFR (CKD-EPI)AfAm (>60 ml/min/1.73 sqM) Est GFR (CKD-EPI)NonAf (>60 ml/min/1.73 sqM) Glucose (74-99) mg/dL Plasma Lactic Acid Juanpablo 1.5 (0.7-2.0) mmol/L Calcium (8.4-10.2) mg/dL Magnesium (1.6-2.3) mg/dL Total Bilirubin (0.2-1.3) mg/dL AST (17-59) U/L ALT (4-49) U/L Alkaline Phosphatase (38-126) U/L NT-Pro-B Natriuret Pep pg/mL Total Protein (6.3-8.2) g/dL Albumin (3.5-5.0) g/dL Disposition <Aziza Malloy - Last Filed: 11/11/24 11:22> Decision Time: 13:31 <Renato Charles - Last Filed: 11/11/24 13:31> Clinical Impression: Pneumonia Disposition: ADMITTED IP TO THIS HOSP Condition: Fair Referrals: Bon Souza MD [Primary Care Provider] - 1-2 days
[2024-11-11 11:46] LABS: Basophils # (A) 0.1 k/uL (0-0.2); Basophils % (A) 1 %; Eosinophils # (A) 0.4 k/uL (0-0.7); Eosinophils % (A) 5 %; HCT 54.8 % (39.0-53.0); HGB 18.7 gm/dL (13.0-17.5); Lymphocytes # (A) 3.2 k/uL (1.0-4.8); Lymphocytes % (A) 39 %; MCH 32.2 pg (25.0-35.0); MCHC 34.2 g/dL (31.0-37.0); MCV 94.3 fL (80.0-100.0); Monocytes # (A) 0.5 k/uL (0-1.0); Monocytes % (A) 6 %; Neutrophils # (A) 3.8 k/uL (1.3-7.7); Neutrophils % (A) 46 %; Platelet Count 163 k/uL (150-450); RBC 5.81 m/uL (4.30-5.90); RDW 13.5 % (11.5-15.5); WBC 8.2 k/uL (3.8-10.6)
[2024-11-11 11:55] LABS: ALT 47 U/L (4-49); AST 31 U/L (17-59); African American GFR (CKD) >90 (>60 ml/min/1.73 sqM); Albumin 4.6 g/dL (3.5-5.0); Alkaline Phosphatase 101 U/L (38-126); Anion Gap 10 mmol/L; Blood Urea Nitrogen 20 mg/dL (9-20); Calcium 9.5 mg/dL (8.4-10.2); Carbon Dioxide 25 mmol/L (22-30); Chloride 100 mmol/L (98-107); Glucose 132 mg/dL (74-99); Magnesium 1.8 mg/dL (1.6-2.3); Non-African American GFR(CKD) >90 (>60 ml/min/1.73 sqM); Potassium 4.2 mmol/L (3.5-5.1); Sodium 135 mmol/L (137-145); Total Bilirubin 0.8 mg/dL (0.2-1.3)
[2024-11-11 12:04] LABS: NT-Pro-B-Type Natriuretic Pept 66 pg/mL
[2024-11-11 12:14] LABS: Partial Thromboplastin Time 23.8 sec (22.0-30.0); Prothrombin Time 10.9 sec (10.0-12.5)
--- NOTE | 2024-11-11 12:17 | XR ---
EXAMINATION TYPE: XR chest 2V DATE OF EXAM: 11/11/2024 11:42 AM COMPARISON: Chest radiographs from 05/25/2021. CLINICAL INDICATION: Male, 59 years old with history of difficulty breathing; TECHNIQUE: XR chest 2V Frontal and lateral views of the chest. FINDINGS: Lungs/Pleura: Subtle increased airspace opacities projecting over the lung base. There is flattening of the diaphragm with increased lucency of the lungs. No evidence of pneumothorax, pleural effusion o r focal consolidation. Pulmonary vascularity: Unremarkable. Heart/mediastinum: Cardiomediastinal silhouette is unremarkable. Musculoskeletal: No acute osseous pathology. IMPRESSION: 1. There may be increased airspace opacities project over the right lung base correlate for pneumonia 2. COPD changes. [facility], , 11/11/2024 12:15 PM
[2024-11-11] MEDS ORDERED: PNEUMONIA PROTOCOL UTILIZED 1 EACH MISC PO PRN (13:20)
[2024-11-11] MEDS: AZITHROMYCIN 500 MG in SODIUM CHLORIDE 0.9% 250 ML IVPB STA (14:29)
--- NOTE | 2024-11-11 14:54 | P.HPIM ---
History of Present Illness H&P Date: 11/11/24 Patient is a 59-year-old male with history of nicotine dependence, diabetes, dyslipidemia presenting with pneumonia after failed outpatient therapy. He claims that he started developing shortness of breath about 2 weeks ago. He initially went to his primary, and was prescribed antibiotics and steroids. However, his symptoms continue to worsen. Denies any fevers or chills, occasional nonproductive cough, denies any orthopnea, PND, swelling, rashes, travel history or sick contacts. He continues to smoke about 1 pack/day. Denies significant alcohol use or illicit drug use. In the ER, temperature was 97.9, pulse 83, respiratory 20, blood pressure 137/80, saturating 88% on room air. Laboratory workup showed WBC 8.2, hemoglobin 18.7, sodium 135, creatinine 0.64, lactate 1.5. Chest x-ray independently interpreted, shows right lower lobe opacity concerning for pneumonia. Patient started on IV antibiotics. Pulmonology consulted. Patient being admitted as inpatient for hypoxic respiratory failure secondary to community-acquired pneumonia. Pertinent positives and negatives as discussed in HPI, a complete review of systems was performed and all other systems are negative. Patient seen and examined at bedside. Vital signs reviewed General: nontoxic, no distress, appears at stated age Derm: warm, dry Head: atraumatic, normocephalic, symmetric Eyes: EOMI, no lid lag, anicteric sclera, pupils equal round reactive to light ENT: Nose and ears atraumatic Neck: No thyromegaly, supple Mouth: no lip lesion, mucus membranes moist Cardiovascular: S1S2 reg, no murmur, no edema Lungs: clear to auscultation bilateral, no rhonchi, no rales, no wheeze, no accessory muscle use, Supplemental oxygen Abdominal: soft, nontender to palpation, no guarding, no appreciable organom egaly Ext: no gross muscle atrophy, muscle strength muscle strength 5 out of 5 in all 4 extremities, no contractures Neuro: CN II-XII grossly intact Psych: Alert, oriented, appropriate affect Assessment/Plan: Active: Acute hypoxic respiratory failure Community-acquired pneumonia -Continue azithromycin 500 mg p.o. daily, IV ceftriaxone 2 g every 24 hours -Blood cultures, sputum culture, Legionella pending, Cepheid 4 Plex pending -Pulmonology consulted, pending recommendations -Wean oxygen Type 2 diabetes -Hold oral antidiabetic medications -Sliding scale insulin, monitor for hypoglycemia Hypothyroidism -Continue rosuvastatin 10 mg daily Nicotine dependence -Counseled regarding smoke cessation The patient is admitted with an anticipated greater than 2 midnight stay as inpatient status for evaluation of community-acquired pneumonia. Surrogate decision-maker: Mother CODE STATUS: Full code DVT prophylaxis: Lovenox Anticipated discharge date: Pending clinical course Anticipated discharge place: Pending clinical course A total of 65 minutes was spent on the care of this complex patient more than 50% of the time was spent in counseling and care coordination. Past Medical History Past Medical History: GERD/Reflux Additional Past Medical History / Comment(s): CHRONIC LOWER BACK PAIN, pancreatitis History of Any Multi-Drug Resistant Organisms: None Reported Past Surgical History: Cholecystectomy, Hernia Repair Past Anesthesia/Blood Transfusion Reactions: No Reported Reaction Past Psychological History: No Psychological Hx Reported Smoking Status: Current some day smoker Past Alcohol Use History: None Reported Past Drug Use History: None Reported - Past Family History Mother Family Medical History: No Reported History Father Family Medical History: Hypertension Medications and Allergies Home Medications Medication Instructions Recorded Confirmed Type Albuterol Sulfate [Albuterol 2 puff PO RT-Q6H PRN 11/11/24 11/11/24 History Sulfate Hfa] Cholecalciferol (Vitamin D3) 50 mcg PO DAILY 11/11/24 11/11/24 History [Vitamin D3 (50 Mcg = 2000 Iu)] Dapagliflozin Propanediol [Farxiga] 10 mg PO DAILY 11/11/24 11/11/24 History HYDROcodone/APAP 7.5-325MG [[place] 1 tab PO BID 11/11/24 11/11/24 History 7.5-325] Rosuvastatin [Crestor] 10 mg PO DAILY 11/11/24 11/11/24 History metFORMIN HCL [Glucophage] 500 mg PO DAILY 11/11/24 11/11/24 History Allergies Allergy/AdvReac Type Severity Reaction Status Date / Time No Known Allergies Allergy Verified 11/11/24 13:24 Physical Exam Vitals: Vital Signs Temp Pulse Resp BP Pulse Ox 11/11/24 13:09 94 L 11/11/24 13:04 84 18 129/85 88 L 11/11/24 11:18 97.9 F 83 20 137/80 91 L Intake and Output 1211/11/24 11/11/24 22:59 06:59 14:59 Other: Weight 108.862 kg Results CBC & Chem 7: 11/11/24 11:34 11/11/24 11:34 Labs: Abnormal Lab Results - Last 24 Hours (Table) 11/11/24 11/11/24 Range/Units 11:34 11:34 Hgb 18.7 H (13.0-17.5) gm/dL Hct 54.8 H (39.0-53.0) % Sodium 135 L (137-145) mmol/L Creatinine 0.64 L (0.66-1.25) mg/dL Glucose 132 H (74-99) mg/dL
[2024-11-11] MEDS ORDERED: IPRATROPIUM-ALBUTEROL 3 ML NEB INHALATION PRN (15:42)
--- NOTE | 2024-11-11 16:03 | P.CNPUL ---
History of Present Illness Consult date: 11/11/24 Requesting physician: Reno Alcala Reason for consult: dyspnea, abnormal CXR/CT Chief complaint: Shortness of breath, cough, congestion History of present illness: This is a very pleasant 59-year-old male patient with a known history of chronic and ongoing tobacco dependence of greater than 45 years at 1 pack/day, diabetes mellitus, hyperlipidemia who has a 2-week history of chest congestion, chest tightness and wheezing. He was on antibiotics and steroids for 5 days in the outpatient setting without much improvement. He was seen in this PCPs clinic today and was found to have O2 saturations in the 80s and was directed to the emergency room. Chest x-ray does reveal increased airspace opacity in the right lung base. Evidence of COPD. White count 8.2. Hemoglobin 18.7. Platelets 163. Sodium 135. Potassium 4.2. Bicarb 25. BUN 20. Creatinine 0.64. Glucose 132. proBNP 66. Viral screen negative. He is seen today in consultation in the emergency department. He is awake and alert in no acute distress. He is maintaining O2 saturations in the 90s on 3 L/min per nasal cannula. He does have a loose congested cough. No fever or chills. No nausea vomiting diarrhea. No hemoptysis. No sick contacts. Review of Systems REVIEW OF SYSTEMS: CONSTITUTIONAL: Denies any recent significant weight loss or weight gain. EYES: Denies change in vision. EARS, NOSE, MOUTH, THROAT: Denies headaches, denies sore throat. CARDIOVASCULAR: Denies chest pain, palpitations or syncopal episodes. RESPIRATORY: Positive for shortness of breath, cough, congestion no hemoptysis. GASTROINTESTINAL: Denies change in appetite, denies abdominal pain GENITOURINARY: Denies hematuria, denies infections. MUSKULOSKELETAL: Denies pain, denies swelling. INTEGUMENTARY: Denies rash, denies eczema. NEUROLOGICAL: Denies recent memory loss, no recent seizure activity. PSYCHIATRIC: Denies anxiety, denies depression. HEMATOLOGIC/LYMPHATIC: Denies anemia, denies enlarged lymph nodes. Past Medical History Past Medical History: GERD/Reflux Additional Past Medical History / Comment(s): CHRONIC LOWER BACK PAIN, pancreatitis History of Any Multi-Drug Resistant Organisms: None Reported Past Surgical History: Cholecystectomy, Hernia Repair Past Anesthesia/Blood Transfusion Reactions: No Reported Reaction Past Psychological History: No Psychological Hx Reported Smoking Status: Current some day smoker Past Alcohol Use History: None Reported Past Drug Use History: None Reported - Past Family History Mother Family Medical History: No Reported History Father Family Medical History: Hypertension Medications and Allergies Home Medications Medication Instructions Recorded Confirmed Type Albuterol Sulfate [Albuterol 2 puff PO RT-Q6H PRN 11/11/24 11/11/24 History Sulfate Hfa] Cholecalciferol (Vitamin D3) 50 mcg PO DAILY 11/11/24 11/11/24 History [Vitamin D3 (50 Mcg = 2000 Iu)] Dapagliflozin Propanediol [Farxiga] 10 mg PO DAILY 11/11/24 11/11/24 History HYDROcodone/APAP 7.5-325MG [[place] 1 tab PO BID 11/11/24 11/11/24 History 7.5-325] Rosuvastatin [Crestor] 10 mg PO DAILY 11/11/24 11/11/24 History metFORMIN HCL [Glucophage] 500 mg PO DAILY 11/11/24 11/11/24 History Allergies Allergy/AdvReac Type Severity Reaction Status Date / Time No Known Allergies Allergy Verified 11/11/24 13:24 Physical Exam Vitals: Vital Signs Temp Pulse Resp BP Pulse Ox 11/11/24 13:09 94 L 11/11/24 13:04 84 18 129/85 88 L 11/11/24 11:18 97.9 F 83 20 137/80 91 L Intake and Output 11/11/24 11/11/24 11/11/24 06:59 14:59 22:59 Other: Weight 108.862 kg GENERAL EXAM: Alert, pleasant 59-year-old male, on 3 L nasal cannula, fairly comfortable in no apparent distress. HEAD: Normocephalic. EYES: Normal reaction of pupils, equal size. NOSE: Clear with pink turbinates. THROAT: No erythema or exudates. NECK: No masses, no JVD. CHEST: No chest wall deformity. LUNGS: Equal air entry with crackles in the right lung base, end expiratory wheeze. CVS: S1 and S2 normal with no audible murmur, regular rhythm. ABDOMEN: No hepatosplenomegaly, normal bowel sounds, no guarding or rigidity. SPINE: No scoliosis or deformity SKIN: No rashes CENTRAL NERVOUS SYSTEM: No focal deficits, tone is normal in all 4 extremities. EXTREMITIES: There is no peripheral edema. No clubbing, no cyanosis. Peripheral pulses are intact. Results - Laboratory Findings CBC and BMP: 11/11/24 11:34 11/11/24 11:34 PT/INR, D-dimer PT 10.9 sec (10.0-12.5) 11/11/24 11:34 INR 1.0 (<1.2) 11/11/24 11:34 Abnormal lab findings: Abnormal Labs 11/11/24 11/11/24 11:34 11:34 Hgb 18.7 H Hct 54.8 H Sodium 135 L Creatinine 0.64 L Glucose 132 H - Diagnostic Findings Chest x-ray: image reviewed Assessment and Plan Assessment: Acute hypoxic respiratory failure secondary to an acute right lower lobe community-acquired pneumonia, failed outpatient treatment Chronic and ongoing tobacco dependence of 45 years Suspect underlying chronic obstructive pulmonary disease Diabetes mellitus, type II Hyperlipidemia Plan: The patient was seen and evaluated Chest x-ray, labs and medications reviewed Check a D-dimer If elevated will need a CTA of the chest Continue ceftriaxone and azithromycin Add Symbicort, DuoNeb inhalations Add Solu-Medrol Lovenox for DVT prophylaxis Titrate the FiO2 as tolerated We will continue to follow and make further recommendations based on his clinical status I have personally seen and examined the patient, performed the documentation and the assessment and plan as written. Number of minutes spent on the visit: 20 Dictation was produced using [employer] dictation software. Please excuse any grammatical, word or spelling errors.
[2024-11-11] MEDS: methylPREDNISolone SOD SUCCI 125 MG/2 ML VIAL IV SCH (18:41)
[2024-11-11] MEDS: IPRATROPIUM-ALBUTEROL 3 ML NEB INHALATION SCH (20:15)
[2024-11-11] MEDS: SYMBICORT 160-4.5 MCG INHALER INHALATION SCH (20:16)
[2024-11-11] MEDS: HYDROcodone/APAP 7.5-325MG 1 EACH TAB PO SCH (21:39)
--- NOTE | 2024-11-12 07:07 | XR ---
EXAM: XR Chest, 2 Views CLINICAL HISTORY: ITS.REASON XR Reason: pneumonia TECHNIQUE: Frontal and lateral views of the chest. COMPARISON: 11/11/24 FINDINGS: Lungs: Focal streaky density in the right lower lung, slightly improved in aeration. No new dense opacity. Pleural space: No pneumothorax. No pleural effusion. Heart: Unremarkable. No cardiomegaly. Mediastinum: Unremarkable. Normal mediastinal contour. Bones/joints: Degenerative changes in the spine. No acute fracture. IMPRESSION: 1. Slight improved right basilar infiltrate or atelectasis. 2. No pleural effusion
[2024-11-12] MEDS: AZITHROMYCIN 500 MG TAB PO SCH (09:35)
[2024-11-12] MEDS: ENOXAPARIN 40 MG/0.4 ML SYRINGE SQ SCH (09:35)
[2024-11-12] MEDS: ATORVASTATIN 20 MG TAB PO SCH (09:35)
[2024-11-12 11:35] LABS: Glucose,Whole Blood 310 mg/dL (70-110)
[2024-11-12] MEDS ORDERED: DEXTROSE 50% SYRINGE 50 ML IVP PRN ×2 (11:45)
--- NOTE | 2024-11-12 11:50 | P.PN ---
Subjective Progress Note Date: 11/12/24 Hospital Course: 59-year-old male with history of nicotine dependence, diabetes, dyslipidemia p resenting with pneumonia after failed outpatient therapy. In the ER, temperature was 97.9, pulse 83, respiratory 20, blood pressure 137/80, saturating 88% on room air. Laboratory workup showed WBC 8.2, hemoglobin 18.7, sodium 135, creatinine 0.64, lactate 1.5. Chest x-ray independently interpreted, shows right lower lobe opacity concerning for pneumonia. Patient started on IV antibiotics. Pulmonology consulted. Patient being admitted as inpatient for hypoxic respiratory failure secondary to community-acquired pneumonia. Patient also has underlying COPD exacerbation, also started on IV steroids and bronchodilators. Subjective: Patient seen and examined at bedside. No acute events overnight. Claims that his breathing has improved. Cough is improving as well. Pertinent positives and negatives as discussed above, a complete review of systems was performed and all other systems are negative. Vitals Signs Reviewed. General: nontoxic, no distress, appears at stated age Derm: warm, dry Head: atraumatic, normocephalic, symmetric Eyes: EOMI, no lid lag, anicteric sclera, pupils equal round reactive to light ENT: Nose and ears atraumatic Neck: No thyromegaly, supple Mouth: no lip lesion, mucus membranes moist Cardiovascular: S1S2 reg, no murmur, no edema Lungs: clear to auscultation bilateral, no rhonchi, no rales, no wheeze, no accessory muscle use, Supplemental oxygen Abdominal: soft, nontender to palpation, no guarding, no appreciable organomegaly Ext: no gross muscle atrophy, muscle strength muscle strength 5 out of 5 in all 4 extremities, no contractures Neuro: CN II-XII grossly intact Psych: Alert, oriented, appropriate affect Data Reviewed Today: Pertinent Labs: D-dimer 0.27, blood sugars range between 1 32-3 10, suffered negative Imaging: Chest x-ray independently interpreted this morning, persistent right lower lobe opacity Assessment and Plan: Acute hypoxic respiratory failure Community-acquired pneumonia Mild COPD exacerbation -Continue azithromycin 500 mg p.o. daily, IV ceftriaxone 2 g every 24 hours -Blood cultures, sputum culture, Legionella pending -Pulmonology following, patient started on Symbicort twice daily, DuoNebs 4 times daily, every 12 hours as needed, IV Solu-Medrol 60 every 6 hours, monitor blood sugars -Wean oxygen - Type 2 diabetes Hyperglycemia -Hold oral antidiabetic medications -Sliding scale insulin, monitor for hypoglycemia Hypothyroidism -Continue rosuvastatin 10 mg daily Nicotine dependence -Counseled regarding smoke cessation DVT ppx: Lovenox Code status: Full code Anticipated discharge place: Home Anticipated discharge time: Possibly tomorrow Objective - Vital Signs Vital signs: Vital Signs Temp 97.5 F L 11/12/24 10:56 Pulse 111 H 11/12/24 10:56 Resp 17 11/12/24 10:56 BP 142/90 11/12/24 10:56 Pulse Ox 89 L 11/12/24 10:56 FiO2 Intake & Output 11/11/24 11/12/24 11/12/24 18:59 06:59 18:59 Weight 108.862 kg 108.862 kg - Labs CBC & Chem 7: 11/11/24 11:34 11/11/24 11:34 Labs: Abnormal Lab Results - Last 24 Hours (Table) 11/11/24 11/12/24 Range/Units 11:34 11:33 Sodium 135 L (137-145) mmol/L Creatinine 0.64 L (0.66-1.25) mg/dL Glucose 132 H (74-99) mg/dL POC Glucose (mg/dL) 310 H (70-110) mg/dL
[2024-11-12] MEDS: INSULIN ASPART (NovoLOG) 100 UNIT/ML VIAL SQ SCH (11:57)
--- NOTE | 2024-11-12 12:40 | P.PN ---
Subjective Progress Note Date: 11/12/24 Principal diagnosis: COPD exacerbation. This is a very pleasant 59-year-old male patient with a known history of chronic and ongoing tobacco dependence of greater than 45 years at 1 pack/day, diabetes mellitus, hyperlipidemia who has a 2-week history of chest congestion, chest t ightness and wheezing. He was on antibiotics and steroids for 5 days in the outpatient setting without much improvement. He was seen in this PCPs clinic today and was found to have O2 saturations in the 80s and was directed to the emergency room. Chest x-ray does reveal increased airspace opacity in the right lung base. Evidence of COPD. White count 8.2. Hemoglobin 18.7. Platelets 163. Sodium 135. Potassium 4.2. Bicarb 25. BUN 20. Creatinine 0.64. Glucose 132. proBNP 66. Viral screen negative. He is seen today in consultation in the emergency department. He is awake and alert in no acute distress. He is maintaining O2 saturations in the 90s on 3 L/min per nasal cannula. He does have a loose congested cough. No fever or chills. No nausea vomiting diarrhea. No hemoptysis. No sick contacts. Progress note dated November 12, 2024. 59-year-old male seen today in room 162. The patient was admitted with a possible COPD exacerbation, and pneumonia. He sees a family doctor in [place] as a primary. He is currently on 2 L of oxygen. Saturations are 95%. Viral screen was negative. The patient continues on Solu-Medrol, Symbicort, DuoNebs, azithromycin, and Rocephin. A procalcitonin level has been checked. Current labs include a glucose of 310. Calcitonin level is pending. Clinically, the patient feels better, and looks better. Objective - Vital Signs Vital signs: Vital Signs Temp 97.5 F L 11/12/24 10:56 Pulse 102 H 11/12/24 12:26 Resp 17 11/12/24 10:56 BP 142/90 11/12/24 10:56 Pulse Ox 93 L 11/12/24 12:01 FiO2 Intake & Output 11/11/24 11/12/24 11/12/24 18:59 06:59 18:59 Weight 108.862 kg 108.862 kg - Exam No acute distress, oriented 3. Currently on room air. HEENT examination is grossly unremarkable. Mucous membranes are moist. No oral lesions. Neck supple. Full range of motion. No adenopathy thyromegaly or neck vein distention. Cardiovascular examination reveals regular rhythm rate. S1-S2 normal. No S3 or S4. No discernible murmur noted. Heart sounds are distant. Lungs reveal expiratory wheezes and rhonchi. Breath sounds are equal. No crackles. Abdomen soft bowel sounds are heard. No masses or tenderness. Extremities are intact. No cyanosis clubbing or edema. Skin is without rash or lesion. Neurologic examination is brief but nonfocal. - Labs CBC & Chem 7: 11/11/24 11:34 11/11/24 11:34 Labs: Abnormal Lab Results - Last 24 Hours (Table) 11/12/24 Range/Units 11:33 POC Glucose (mg/dL) 310 H (70-110) mg/dL Assessment and Plan Assessment: Acute hypoxic respiratory failure secondary to an acute right lower lobe community-acquired pneumonia. Chronic and ongoing tobacco dependence of 45 years. Suspect underlying chronic obstructive pulmonary disease. Diabetes mellitus, type II. Hyperlipidemia. Plan: Plan dated November 12, 2024. The patient is seen today, in room 162. The patient's viral screen was negative. He continues on Solu-Medrol, Symbicort, albuterol sulfate, ipratropium bromide, azithromycin, and Rocephin. The patient's procalcitonin level is currently pending. He is on between 2 L or room air. Labs, x-rays, and medications are reviewed. We will continue to follow make recommendations along the way. Clinically, the patient looks very comfortable, and in no acute distress. Time with Patient: Less than 30
[2024-11-12 16:29] LABS: Glucose,Whole Blood 311 mg/dL (70-110)
[2024-11-12] MEDS: ACETAMINOPHEN TAB 325 MG TAB PO PRN (16:31)
[2024-11-12] MEDS: IBUPROFEN 400 MG TAB PO PRN (18:57)
[2024-11-12 20:03] LABS: Glucose,Whole Blood 252 mg/dL (70-110)
[2024-11-13 06:11] LABS: Glucose,Whole Blood 230 mg/dL (70-110)
[2024-11-13 07:59] VITALS: BP 127/77; TEMP 97.9
[2024-11-13 08:12] VITALS: PULSE 90; RESP 16
--- NOTE | 2024-11-13 11:06 | P.DS ---
Providers Date of admission: 11/11/24 13:21 Expected date of discharge: 11/13/24 Attending physician: Reno Alcala Consults: 11/11/24 13:20 Consult Physician Routine Consulting Provider: Oscar Bianchi Consult Reason/Comments: pneumonia, failed outpatient treatment Do you want consulting provider notified?: Yes Primary care physician: Bon Souza Hospital Course: Discharge Diagnosis: Acute hypoxic respiratory failure Acute COPD exacerbation Type 2 diabetes Hyperglycemia Hypothyroidism Nicotine dependence Hospital Course: 59-year-old male with history of nicotine dependence, diabetes, dyslipidemia presenting with pneumonia after failed outpatient therapy. In the ER, temperature was 97.9, pulse 83, respiratory 20, blood pressure 137/80, saturating 88% on room air. Laboratory workup showed WBC 8.2, hemoglobin 18.7, sodium 135, creatinine 0.64, lactate 1.5. Chest x-ray independently interpreted, shows right lower lobe opacity concerning for pneumonia. Patient started on IV antibiotics. Pulmonology consulted. Patient being admitted as inpatient for hypoxic respiratory failure secondary to community-acquired pneumonia. Patient also has underlying COPD exacerbation, also started on IV steroids and bronchodilators. Procalcitonin negative, overall clinical picture more consistent with COPD exacerbation. Patient being discharged on inhalers and oral steroids. On room air at the time of discharge. Follow-up with PCP and pulmonology. Patient seen and examined at bedside. Vital signs reviewed and stable. General: Nontoxic, no distress, appears at stated age Derm: Warm, dry Head: Atraumatic, normocephalic, symmetric Eyes: EOMI, no lid lag, anicteric sclera Mouth: No lip lesion, mucus membranes moist Cardiovascular: S1S2 reg, no murmur Lungs: CTA bilateral, no rhonchi, no rales, no accessory muscle use Abdominal: Soft, nontender to palpation, no guarding, no appreciable organomegaly Ext: No gross muscle atrophy, no edema, no contractures Neuro: CN II-XI grossly intact, no focal neuro deficits Psych: Alert, oriented, appropriate affect A total of 36 minutes of time were spent preparing this complex discharge summary. Patient was discharged on 11/13/2024 at 932. Patient Condition at Discharge: Stable Plan - Discharge Summary New Discharge Prescriptions: New Budesonide/Formoterol Fumarate [Breyna 160-4.5 Mcg Inhaler] 1 puff INHALATION BID #10.3 gm predniSONE 50 mg PO DAILY #3 tablet Continue Rosuvastatin [Crestor] 10 mg PO DAILY Dapagliflozin Propanediol [Farxiga] 10 mg PO DAILY Albuterol Sulfate [Albuterol Sulfate Hfa] 2 puff PO RT-Q6H PRN PRN Reason: Shortness Of Breath Cholecalciferol (Vitamin D3) [Vitamin D3 (50 Mcg = 2000 Iu)] 50 mcg PO DAILY metFORMIN HCL [Glucophage] 500 mg PO DAILY HYDROcodone/APAP 7.5-325MG [Cameron 7.5-325] 1 tab PO BID Discharge Medication List Albuterol Sulfate [Albuterol Sulfate Hfa] 2 puff PO RT-Q6H PRN 11/11/24 [History] Cholecalciferol (Vitamin D3) [Vitamin D3 (50 Mcg = 2000 Iu)] 50 mcg PO DAILY 11/11/24 [History] Dapagliflozin Propanediol [Farxiga] 10 mg PO DAILY 11/11/24 [History] HYDROcodone/APAP 7.5-325MG [Cameron 7.5-325] 1 tab PO BID 11/11/24 [History] Rosuvastatin [Crestor] 10 mg PO DAILY 11/11/24 [History] metFORMIN HCL [Glucophage] 500 mg PO DAILY 11/11/24 [History] Budesonide/Formoterol Fumarate [Breyna 160-4.5 Mcg Inhaler] 1 puff INHALATION BID #10.3 gm 11/13/24 [Rx] predniSONE 50 mg PO DAILY #3 tablet 11/13/24 [Rx] Follow up Appointment(s)/Referral(s): Bon Souza MD [Primary Care Provider] - 11/16/24 10:00 am (with Staci) Avelino Silva DO [Doctor of Osteopathic Medicine] - 11/23/24 10:00 am (with Dr Bianchi) Patient Instructions/Handouts: COPD (Chronic Obstructive Pulmonary Disease) (DC) Activity/Diet/Wound Care/Special Instructions: Please see your PCP and pulmonology. Discharge Disposition: HOME SELF-CARE
--- NOTE | 2024-11-13 20:35 | PN ---
PROGRESS NOTE SUBJECTIVE: This is a 59-year-old male, who was seen today in room 162. The patient was seen in consultation 2 days ago. The patient was admitted with a diagnosis of COPD exacerbation and possible pneumonia. His primary care physician is Dr. Bon Souza in [place]. Currently, the patient is on room air. The patient is feeling much better. His procalcitonin level was 0.07. His Solu-Medrol, we converted to prednisone 40 mg a day with a taper. Antibiotics were discontinued. Clinically, the patient would like to be discharged home. PHYSICAL EXAMINATION: VITAL SIGNS: Current vital signs are temperature 97.9, heart rate 88, respiratory rate 16, blood pressure 127/77, mean 93, room air saturation between 91% and 95%. GENERAL: He appears in no acute distress. No respiratory distress. No audible wheezing. No use of accessory muscles. HEENT: Grossly unremarkable. NECK: Supple. Full range of motion. No adenopathy. Neck veins are flat. CARDIOVASCULAR: Reveals regular rhythm and rate. S1, S2 normal. Heart rate 88 beats per minute. LUNGS: Revealed minimal rhonchi. No wheezes or crackles. Breath sounds are equal, but diminished throughout. Breath sounds are much improved. ABDOMEN: Soft. Bowel sounds are heard. EXTREMITIES: Intact. No cyanosis, clubbing, or edema. SKIN: Without rash. NEUROLOGIC: Brief, but nonfocal. LABORATORY DATA: Labs today include a glucose of 230, and hemoglobin A1c of 8.1. His procalcitonin level was 0.07. Cultures were negative. ASSESSMENT: 1. Acute hypoxemic respiratory failure, without obvious associated pneumonia. 2. Chronic and ongoing tobacco dependence of 45 years. 3. Probable chronic obstructive pulmonary disease. 4. Diabetes mellitus, type 2. 5. Hyperlipidemia. PLAN: Initially, the patient was thought to have a possible community-acquired pneumonia, right lower lobe. The patient's procalcitonin level was normal. Antibiotics were discontinued. Infiltrates probably reflected atelectasis rather than infiltrate. The patient is currently on room air. He is feeling much better. His antibiotics were discontinued. His lung examination is much improved. The Solu-Medrol was converted to prednisone with a taper. Labs, x-rays, medications are reviewed. We will let the primary service know that the patient could be discharged. MMODL / IJN: [id number] /
== END 2024-11-13 11:20 | disposition home or self-care (01) | DRG 193 ==
LOC: EC 11:04 → 4SSUR 13:21 → 1SOBS 11-12 07:07
PROVIDERS: ADMIT Student in an Organized Health Care Education/Training Program; ATTEND Student in an Organized Health Care Education/Training Program
DX: J18.9 Pneumonia, unspecified organism (principal); J96.01 Acute respiratory failure with hypoxia; J44.0 Chronic obstructive pulmonary disease with (acute) lower respiratory infection; J44.1 Chronic obstructive pulmonary disease with (acute) exacerbation; E03.9 Hypothyroidism, unspecified; E78.5 Hyperlipidemia, unspecified; E11.65 Type 2 diabetes mellitus with hyperglycemia; F17.200 Nicotine dependence, unspecified, uncomplicated; F19.90 Other psychoactive substance use, unspecified, uncomplicated; Z79.84 Long term (current) use of oral hypoglycemic drugs; Z79.899 Other long term (current) drug therapy
CPT/HCPCS: 36415; 71046; 80053; 83036; 83605; 83735; 83880; 84145; 85025; 85379; 85610; 85730; 87040; 87070; 87205; 87449; 87636; 93005; 94640; 94760; 96374; 96375; 96376; 99285

== ENCOUNTER → 2024-12-04 | Outpatient (CLI) | payer OTHER ==
[2024-12-04 08:06] LABS: African American GFR (CKD) >90 (>60 ml/min/1.73 sqM); Blood Urea Nitrogen 20 mg/dL (9-20); Non-African American GFR(CKD) >90 (>60 ml/min/1.73 sqM)
--- NOTE | 2024-12-04 21:41 | CT ---
EXAMINATION TYPE: CT angio chest DATE OF EXAM: 12/04/2024 9:02 AM COMPARISON: Chest radiograph from same day. Multiple CTs of the chest with most recent on 05/08/2024. 05/08/2024. . CLINICAL INDICATION: Male, 59 years old with history of I71.21 Aneurysm of the ascending aorta, w/o r uptur; Thoracic aortic aneurysm wout rupture TECHNIQUE/CONTRAST: CTA scan of the thorax is performed without and with IV Contrast, patient injected with 100 mL of Iso julianne 370, MIP images are created and reviewed these are created on a separate workstation.. CT DLP: 1156.90 mGycm, Automated exposure control for dose reduction was used. FINDINGS: Lungs/Pleura: No evidence of focal consolidation, pleural effusion or pneumothorax. Mild central lobu lar emphysema changes throughout the lungs. Airway: Large airways are patent. Heart: Size within normal limits Vasculature: Mild ectasia of ascending thoracic aorta up to 41 mm No evidence for intramural hematoma on noncontrast imaging. No evidence of intimal flap to suggest dissection. No aneurysm identified. S cattered atherosclerotic disease. There is no evidence for a filling defect within the pulmonary vasc ulature to suggest acute pulmonary embolism. The pulmonary artery is of normal size. Mediastinum: No gross evidence of adenopathy. Musculoskeletal: Mild disc degeneration changes are present throughout the thoracolumbar spine second prince to osteophyte formation and facet joint arthropathy. Soft Tissues/lymph nodes: Unremarkable. Lower neck: No significant findings. Upper Abdomen: No significant findings. IMPRESSION: 1. No evidence for aortic aneurysm, dissection or occlusion. No evidence for pulmonary embolus in the central pulmonary vasculature. 2. Mild ascending thoracic aorta ectasia up to 41 mm. 3. Mild emphysema changes. [facility], , 12/04/2024 9:39 PM
== END | disposition home or self-care (01) ==
LOC: RADCTMAIN 07:02
PROVIDERS: ATTEND Family Medicine
DX: J43.9 Emphysema, unspecified (principal); I71.21 Aneurysm of the ascending aorta, without rupture
CPT/HCPCS: 82565; 84520; 71275; 36415; Q9967